=== PATIENT | male | born 1945 | race Caucasian/White ===

== ENCOUNTER 2022-03-31 12:47 | Observation (INO) ==
--- NOTE | 2022-03-31 14:13 | XRay Report ---
SINGLE VIEW CHEST CLINICAL HISTORY: Change in mental status. FINDINGS: An AP, portable, upright chest radiograph is obtained. No prior studies are available for c omparison at the time of dictation. The heart is top normal for projection noting atherosclerotic ca lcification of the thoracic aorta. There is bibasilar scarring/atelectasis. The lungs and pleural spa [place] are otherwise clear. No pneumothorax is seen. The skeletal structures are osteopenic. The bony th orax is grossly intact. IMPRESSION: No active disease in the chest. ACT 112: Negative or not required by law. Electronically signed by: Andrew Thomason M.D. 03/31/2022 2:11 PM
[2022-03-31 14:29] LABS: Basophils # (auto) 0.01 K/uL (0-0.2); Basophils % (auto) 0.2 %; Eosinophils # (auto) 0.17 K/uL (0-0.5); Eosinophils % (auto) 2.8 %; Hemoglobin 16.4 g/dL (14.0-18.0); Immature Granulocytes # (auto) 0.01 K/uL (0.00-0.02); Immature Granulocytes % (auto) 0.2 %; Lymphocytes # (auto) 0.97 K/uL (1.2-3.4); Lymphocytes % (auto) 15.9 %; Mean Corpuscular Hemoglobin 31.7 pg (25-34); Mean Corpuscular Hgb Conc 34.9 g/dL (32-36); Mean Corpuscular Volume 90.9 fL (80-100); Mean Platelet Volume 9.3 fL (7.4-10.4); Monocytes # (auto) 0.48 K/uL (0.11-0.59); Monocytes % (auto) 7.9 %; Neutrophils # (auto) 4.45 K/uL (1.4-6.5); Platelet Count 172 K/uL (130-400); RDW Coefficient of Variation 11.9 % (11.5-14.5); Red Blood Count 5.17 M/uL (4.7-6.1); White Blood Count 6.09 K/uL (4.8-10.8)
[2022-03-31 14:35] LABS: Partial Thromboplastin Time 27.9 Seconds (21.0-31.0); Prothrombin Time 10.8 Seconds (9.0-12.0)
[2022-03-31 14:40] LABS: Appearance Urine Clear (Clear); Bilirubin Urine Negative (Negative); Blood Urine Negative (Negative); Color Urine Yellow; Glucose Urine UA Negative (Negative); Ketones Urine Trace (Negative); Leukocyte Esterase Urine Negative (Negative); Nitrite Urine Negative (Negative); Protein Urine Negative (Negative); Urobilinogen Urine Negative (Negative)
[2022-03-31 14:48] LABS: Albumin Globulin Ratio 1.6 (0.9-2); Albumin Level 4.6 gm/dl (3.4-5.0); Bilirubin,Total 0.9 mg/dl (0.2-1.0); Calcium 9.8 mg/dl (8.5-10.1); Est GFR (African American) 90.4 ml/min; Globulin 2.8 gm/dl (2.5-4.0); Magnesium 2.2 mg/dl (1.7-2.4); Potassium 3.9 mmol/L (3.5-5.1); Total Protein 7.4 gm/dl (6.0-8.3)
--- NOTE | 2022-03-31 15:05 | Emergency Department Note ---
History of Present Illness General Chief complaint: Confusion Stated complaint: CONFUSION Time Seen by Provider: 03/31/22 14:31 Source: patient History of Present Illness Provider complaint: Confusion Onset (ago): hour(s) Location: head Pain Consistency: + constant and + now resolved Quality: + other (Could not remember anything) Relieved By: + none Associated symptoms: + confusion; no chest pain, no cough, no fever/chills, no headaches, no nausea/vomiting, no shortness of breath or no weakness This is a 76-year-old male who presents with an episode of confusion that lasted approximately 45 minutes. The patient and his are providing history. The states that they came home from [place] and they made love. Afterwards he could not remember anything. He did not remember the events of today or yesterday. He had no other symptoms. He had no difficulty with his speech, vision, walking, swallowing or numbness or weakness in his extremities. His checked his strength and he had good strength bilaterally. He denies any headache. After about 45 minutes his symptoms resolved. He has never had an episode like this before. He currently has no complaints. He denies any headache, fever, cough or cold symptoms, chest pain, shortness of breath, abdominal pain, vomiting, diarrhea or urinary symptoms. He does have a history of prostate cancer. He has never had any imaging to his brain. Home Medications Medication Instructions Recorded Confirmed Type ascorbic acid (vitamin C) 500 mg 500 mg PO DAILY cap 10/16/21 03/31/22 History capsule calcium carb-ergocalciferol (vit 1 tab PO DAILY tab 10/16/21 03/31/22 History D2) 600 mg calcium-200 unit tablet cholecalciferol (vitamin D3) 125 125 mcg PO DAILY 10/16/21 03/31/22 History mcg (5,000 unit) capsule multivitamin 1 tab PO DAILY 10/16/21 03/31/22 History tamsulosin 0.4 mg capsule 0.4 mg PO BIDWMEAL #60 cap 12/24/21 03/31/22 Rx metformin 500 mg tablet 500 mg PO BID 01/07/22 03/31/22 History pumpkin seed extract 500 mg 500 mg PO DAILY cap 01/21/22 03/31/22 History capsule (Azo Men) royal jelly 500 mg capsule 500 mg PO TIDWMEAL 03/31/22 03/31/22 History Allergies Allergy/AdvReac Type Severity Reaction Status Date / Time finasteride AdvReac Breast Verified 03/31/22 15:29 tenderness Past Med/Surg History Medical History Osteoarthritis Prostate cancer (09/07/21) Sleep apnea Surgical History H/O left inguinal hernia repair H/O umbilical hernia repair Family History Mother , in her 90s Natural with unknown cause Father , 93yo No problems noted. Brother Family history unknown Brother Family history unknown Brother Suicide Sister Family history unknown Sister Family history unknown Son No problems noted. Daughter No problems noted. Social History Smoking Status: Former smoker Cigarettes Per Day: 2 packs; Smoking End Date: 1987; Second Hand Exposure: No; Do You Dip or Chew Tobacco: No; Tobacco Cessation Education Requested by Patient: No Hx Alcohol Use: No Hx Substance Use: No Preferred Language: Palestinian Communication Ability: Effective Visual Impairment: No Limitations Hearing Ability: Normal Census Clerk Required: Yes and No Beliefs That Will Affect Care: None marital status: Current Living Situation: Spouse current occupational status: employed current occupation: Owns [employer] Other Information That Helps Us Care for You: No Feels Safe at Home: Yes Safety Concerns: Feels Safe At This Time caffeine: Yes (1 cup/day) during the past year weight has: remained stable Assistive Devices: Glasses Review of Systems See HPI for pertinent positives & negatives. and A total of 10 systems reviewed and were otherwise negative Physical Exam Vital Signs Vital Signs - 24 hr 03/31/22 13:01 03/31/22 15:28 03/31/22 15:29 Temperature 36.8 C Temperature Source Temporal Artery Scan Pulse Rate 89 Pulse Rate [Apical] 87 Pulse Rate from SpO2 Sensor Respiratory Rate 18 13 Respiratory Effort / Characteristics Non-Labored Respiratory Depth Normal Respiratory Pattern Regular Blood Pressure 160/88 H Blood Pressure [Right Arm] 172/98 H Blood Pressure Mean 112 Blood Pressure Mean [Right Arm] 122 Blood Pressure Position Sitting Blood Pressure Position [Right Arm] Semi-fowlers Pulse Oximetry 95 95 97 Oxygen Delivery Method Room Air Room Air Room Air Sepsis Recent Fever Within 48 Hours No Sepsis New/Unexplained Change in Mental Status No Sepsis Action Taken by Nursing No Action Required 03/31/22 15:36 03/31/22 15:40 03/31/22 15:50 Temperature Temperature Source Pulse Rate 87 79 90 Pulse Rate [Apical] Pulse Rate from SpO2 Sensor 80 91 H Respiratory Rate 20 18 15 Respiratory Effort / Characteristics Respiratory Depth Respiratory Pattern Blood Pressure Blood Pressure [Right Arm] Blood Pressure Mean Blood Pressure Mean [Right Arm] Blood Pressure Position Blood Pressure Position [Right Arm] Pulse Oximetry 97 97 Oxygen Delivery Method Sepsis Recent Fever Within 48 Hours Sepsis New/Unexplained Change in Mental Status Sepsis Action Taken by Nursing 03/31/22 16:13 03/31/22 16:20 03/31/22 16:30 Temperature Temperature Source Pulse Rate 83 80 78 Pulse Rate [Apical] Pulse Rate from SpO2 Sensor 79 Respiratory Rate 19 17 16 Respiratory Effort / Characteristics Respiratory Depth Respiratory Pattern Blood Pressure Blood Pressure [Right Arm] Blood Pressure Mean Blood Pressure Mean [Right Arm] Blood Pressure Position Blood Pressure Position [Right Arm] Pulse Oximetry 95 Oxygen Delivery Method Sepsis Recent Fever Within 48 Hours Sepsis New/Unexplained Change in Mental Status Sepsis Action Taken by Nursing Constitutional: Vital signs reviewed. Eyes: Pupils are equal round reactive to light. Conjunctiva are noninjected. ENT: Pharynx is clear without erythema or exudate. Mucous membranes are moist. Neck supple without meningeal signs. Respiratory: Clear to auscultation bilaterally. Breath sounds are equal bilaterally. Cardiovascular: Regular rate and rhythm. No rubs or gallops. No carotid bruits. GI: Soft, nondistended and nontender. Bowel sounds are present. Musculoskeletal: No peripheral edema. No lower extremity tenderness. Integumentary: No cyanosis. or jaundice. Neurologic: The patient is awake and alert. Cranial nerves II-XII are intact. Motor is 5 out of 5 all extremities. Sensation is intact to light touch all extremities. Normal speech. No pronator drift. No limb ataxia. Normal gait. Psychiatric: Normal affect. Not anxious appearing. Course Administered Medications Insulin Aspart (Insulin Aspart Per Unit) 0 units SC ACHS CRYSTAL Stop: 04/30/22 20:59 Last Admin: 03/31/22 20:36 Dose: Not Given Documented by: [id number] Cosigned by: [id number] Tamsulosin HCl (Tamsulosin Hcl 0.4 Mg Cap) 0.4 mg PO BIDM [facility] Stop: 04/30/22 18:35 Last Admin: 03/31/22 20:07 Dose: 0.4 mg Documented by: [id number] Discontinued Medications Aspirin (Aspirin 81 Mg Chew) 324 mg PO NOW STA Stop: 03/31/22 16:40 Last Admin: 03/31/22 17:38 Dose: 324 mg Documented by: [id number] Gadobutrol (Gadobutrol 30ml Vial) 8 ml IV ONCE ONE Stop: 03/31/22 18:03 Last Admin: 03/31/22 18:02 Dose: 8 ml Documented by: [id number] Ioversol (Optiray 320 125ml) 120 ml IV ONCE ONE Stop: 03/31/22 15:24 Last Admin: 03/31/22 15:23 Dose: 120 ml Documented by: [id number] Medical Decision Making Differential Diagnosis Transient global amnesia, TIA, CVA, intracranial hemorrhage, intracranial mass, metabolic derangement, metastatic disease Medical Records Attestation: I reviewed the patient's medical records. I did perform a limited focused review of portions of the patient's old chart on the electronic medical record. The patient was seen earlier this year by oncology for prostate cancer. Home Medications Current Medication List: was personally reviewed by me Laboratory Data Attestation: I reviewed the patient's lab results. Result diagrams: 03/31/22 14:15 03/31/22 14:15 Lab Results 03/31/22 03/31/22 03/31/22 Range/Units 14:15 14:15 14:15 WBC 6.09 (4.8-10.8) K/uL RBC 5.17 (4.7-6.1) M/uL Hgb 16.4 (14.0-18.0) g/dL Hct 47.0 (42-52) % MCV 90.9 (80-100) fL MCH 31.7 (25-34) pg MCHC 34.9 (32-36) g/dL RDW Std Deviation 40.0 (36.4-46.3) fL RDW Coeff of Anita 11.9 (11.5-14.5) % Plt Count 172 (130-400) K/uL MPV 9.3 (7.4-10.4) fL Immature Gran % (Auto) 0.2 % Neut % (Auto) 73.0 % Lymph % (Auto) 15.9 % [place] % (Auto) 7.9 % Eos % (Auto) 2.8 % Baso % (Auto) 0.2 % Neut # (Auto) 4.45 (1.4-6.5) K/uL Lymph # (Auto) 0.97 L (1.2-3.4) K/uL [place] # (Auto) 0.48 (0.11-0.59) K/uL Eos # (Auto) 0.17 (0-0.5) K/uL Baso # (Auto) 0.01 (0-0.2) K/uL Immature Gran # (Auto) 0.01 (0.00-0.02) K/uL PT 10.8 (9.0-12.0) Seconds INR 1.0 (0.9-1.1) APTT 27.9 (21.0-31.0) Seconds PTT Ratio 1.0 Sodium 138 (136-145) mmol/L Potassium 3.9 (3.5-5.1) mmol/L Chloride 103 (98-107) mmol/L Carbon Dioxide 27 (21-32) mmol/L Anion Gap 8 (3-11) BUN 19 (6-23) mg/dl Creatinine 0.95 (0.6-1.4) mg/dl Est Cr Clr Drug Dosing 65.0 ml/min Est GFR ( Amer) 90.4 ml/min Est GFR (Non-Af Amer) 78.0 ml/min BUN/Creatinine Ratio 20.0 (10-20) Glucose 105 H (70-99(Fasting)) mg/dl Calcium 9.8 (8.5-10.1) mg/dl Magnesium 2.2 (1.7-2.4) mg/dl Total Bilirubin 0.9 (0.2-1.0) mg/dl AST 16 (13-39) U/L ALT 13 (7-52) U/L Alkaline Phosphatase 55 (34-104) U/L Troponin I High Sens (0-20) pg/ml Total Protein 7.4 (6.0-8.3) gm/dl Albumin 4.6 (3.4-5.0) gm/dl Globulin 2.8 (2.5-4.0) gm/dl Albumin/Globulin Ratio 1.6 (0.9-2) TSH (0.300-4.500) uIu/ml Free T4 (0.61-1.60) ng/dl Urine Color Urine Appearance (Clear) Urine pH (4.5-7.5) Ur Specific Alloway (1.000-1.030) Urine Protein (Negative) Urine Glucose (UA) (Negative) Urine Ketones (Negative) Urine Blood (Negative) Urine Nitrite (Negative) Urine Bilirubin (Negative) Urine Urobilinogen (Negative) Ur Leukocyte Esterase (Negative) SARS-CoV-2, RNA, NAAT (NEGATIVE) Blood Type Antibody Screen 03/31/22 03/31/22 03/31/22 Range/Units 14:15 14:15 14:15 WBC (4.8-10.8) K/uL RBC (4.7-6.1) M/uL Hgb (14.0-18.0) g/dL Hct (42-52) % MCV (80-100) fL MCH (25-34) pg MCHC (32-36) g/dL RDW Std Deviation (36.4-46.3) fL RDW Coeff of Anita (11.5-14.5) % Plt Count (130-400) K/uL MPV (7.4-10.4) fL Immature Gran % (Auto) % Neut % (Auto) % Lymph % (Auto) % [place] % (Auto) % Eos % (Auto) % Baso % (Auto) % Neut # (Auto) (1.4-6.5) K/uL Lymph # (Auto) (1.2-3.4) K/uL [place] # (Auto) (0.11-0.59) K/uL Eos # (Auto) (0-0.5) K/uL Baso # (Auto) (0-0.2) K/uL Immature Gran # (Auto) (0.00-0.02) K/uL PT (9.0-12.0) Seconds INR (0.9-1.1) APTT (21.0-31.0) Seconds PTT Ratio Sodium (136-145) mmol/L Potassium (3.5-5.1) mmol/L Chloride (98-107) mmol/L Carbon Dioxide (21-32) mmol/L Anion Gap (3-11) BUN (6-23) mg/dl Creatinine (0.6-1.4) mg/dl Est Cr Clr Drug Dosing ml/min Est GFR ( Amer) ml/min Est GFR (Non-Af Amer) ml/min BUN/Creatinine Ratio (10-20) Glucose (70-99(Fasting)) mg/dl Calcium (8.5-10.1) mg/dl Magnesium (1.7-2.4) mg/dl Total Bilirubin (0.2-1.0) mg/dl AST (13-39) U/L ALT (7-52) U/L Alkaline Phosphatase (34-104) U/L Troponin I High Sens (0-20) pg/ml Total Protein (6.0-8.3) gm/dl Albumin (3.4-5.0) gm/dl Globulin (2.5-4.0) gm/dl Albumin/Globulin Ratio (0.9-2) TSH 7.548 H (0.300-4.500) uIu/ml Free T4 0.67 (0.61-1.60) ng/dl Urine Color Yellow Urine Appearance Clear (Clear) Urine pH 5.0 (4.5-7.5) Ur Specific Alloway 1.010 (1.000-1.030) Urine Protein Negative (Negative) Urine Glucose (UA) Negative (Negative) Urine Ketones Trace H (Negative) Urine Blood Negative (Negative) Urine Nitrite Negative (Negative) Urine Bilirubin Negative (Negative) Urine Urobilinogen Negative (Negative) Ur Leukocyte Esterase Negative (Negative) SARS-CoV-2, RNA, NAAT (NEGATIVE) Blood Type Antibody Screen 03/31/22 03/31/22 03/31/22 Range/Units 15:02 15:02 16:10 WBC (4.8-10.8) K/uL RBC (4.7-6.1) M/uL Hgb (14.0-18.0) g/dL Hct (42-52) % MCV (80-100) fL MCH (25-34) pg MCHC (32-36) g/dL RDW Std Deviation (36.4-46.3) fL RDW Coeff of Anita (11.5-14.5) % Plt Count (130-400) K/uL MPV (7.4-10.4) fL Immature Gran % (Auto) % Neut % (Auto) % Lymph % (Auto) % [place] % (Auto) % Eos % (Auto) % Baso % (Auto) % Neut # (Auto) (1.4-6.5) K/uL Lymph # (Auto) (1.2-3.4) K/uL [place] # (Auto) (0.11-0.59) K/uL Eos # (Auto) (0-0.5) K/uL Baso # (Auto) (0-0.2) K/uL Immature Gran # (Auto) (0.00-0.02) K/uL PT (9.0-12.0) Seconds INR (0.9-1.1) APTT (21.0-31.0) Seconds PTT Ratio Sodium (136-145) mmol/L Potassium (3.5-5.1) mmol/L Chloride (98-107) mmol/L Carbon Dioxide (21-32) mmol/L Anion Gap (3-11) BUN (6-23) mg/dl Creatinine (0.6-1.4) mg/dl Est Cr Clr Drug Dosing ml/min Est GFR ( Amer) ml/min Est GFR (Non-Af Amer) ml/min BUN/Creatinine Ratio (10-20) Glucose (70-99(Fasting)) mg/dl Calcium (8.5-10.1) mg/dl Magnesium (1.7-2.4) mg/dl Total Bilirubin (0.2-1.0) mg/dl AST (13-39) U/L ALT (7-52) U/L Alkaline Phosphatase (34-104) U/L Troponin I High Sens 4.3 (0-20) pg/ml Total Protein (6.0-8.3) gm/dl Albumin (3.4-5.0) gm/dl Globulin (2.5-4.0) gm/dl Albumin/Globulin Ratio (0.9-2) TSH (0.300-4.500) uIu/ml Free T4 (0.61-1.60) ng/dl Urine Color Urine Appearance (Clear) Urine pH (4.5-7.5) Ur Specific Alloway (1.000-1.030) Urine Protein (Negative) Urine Glucose (UA) (Negative) Urine Ketones (Negative) Urine Blood (Negative) Urine Nitrite (Negative) Urine Bilirubin (Negative) Urine Urobilinogen (Negative) Ur Leukocyte Esterase (Negative) SARS-CoV-2, RNA, NAAT NEGATIVE (NEGATIVE) Blood Type B Positive Antibody Screen NEGATIVE Imaging Data Radiologist's Impression: Chest X-Ray 03/31/22 13:05 SINGLE VIEW CHEST CLINICAL HISTORY: Change in mental status. FINDINGS: An AP, portable, upright chest radiograph is obtained. No prior studies are available for comparison at the time of dictation. The heart is top normal for projection noting atherosclerotic calcification of the thoracic aorta. There is bibasilar scarring/atelectasis. The lungs and pleural spaces are otherwise clear. No pneumothorax is seen. The skeletal structures are osteopenic. The bony thorax is grossly intact. IMPRESSION: No active disease in the chest. ACT 112: Negative or not required by law. Electronically signed by: Andrew Thomason M.D. 03/31/2022 2:[address] 03/31/22 14:[address] OF THE BRAIN; CT ANGIOGRAM OF THE BRAIN; CT ANGIOGRAM OF THE NECK CLINICAL HISTORY: Strokelike symptoms. Global amnesia. COMPARISON STUDY: No priors. TECHNIQUE: Unenhanced axial CT scan of the brain is performed. Subsequently, following the IV administration of 120 of Optiray 320, CT angiogram of the head and neck was performed from the aortic arch to the vertex. Images are reviewed in the axial, sagittal, and coronal planes. 3-D MIPS images are created and assessed. IV contrast was administered without complication. All measurements were calculated based on NASCET criteria. A dose lowering technique was utilized adhering to the principles of ALARA. CT DOSE: 1107.58 mGy.cm FINDINGS: Brain parenchyma: There is age-related involutional change noting minimal subcortical and periventricular microangiopathic disease. There is no hemorrhage, mass effect, or evidence of acute territorial ischemia by CT criteria. There is no evidence of enhancing mass lesion on the angiogram phase images. The ventricles, sulci, and cisterns are prominent secondary to involutional change. Bowers-white matter differentiation is preserved. No extra- axial fluid collection is seen. Thoracic aorta: There is atherosclerotic calcification of the thoracic aorta. Visualized portions of the thoracic aorta are normal in caliber. The aortic arch demonstrates standard 3-vessel anatomy. Right carotid arterial system: The right common carotid artery is widely patent, as are the right internal and external carotid arteries. Calcified plaque is seen in the carotid bulb. Left carotid arterial system: The left common carotid artery is widely patent, as are the left internal and external carotid arteries. Calcified plaque is noted in the carotid bulb. Vertebral arteries: The vertebral arteries are widely patent bilaterally. The left vertebral artery is dominant. Subclavian arteries: Widely patent bilaterally. Intracranial vasculature: The internal carotid arteries are patent at the skull base, as are the anterior and middle cerebral arteries bilaterally. The vertebrobasilar system and posterior cerebral arteries are widely patent. The left vertebral artery is dominant. The intracranial right vertebral artery is diminutive. There is no aneurysm, high-grade stenosis, or focal vessel cut off seen throughout the intracranial circulation. Jugular veins: Patent bilaterally. Dural sinuses: Patent. Lung apices: Partially visualized upper lobe lung parenchyma appears clear. Soft tissues: The visualized pharyngeal soft tissues are normal in appearance noting angiographic phase technique. The oropharyngeal airway appears widely patent. The salivary and thyroid glands are normal in appearance. No cervical lymphadenopathy is seen. Skeletal structures: The skeletal structures are osteopenic. The calvarium appears intact. The cervical spine is maintained noting mild multilevel spondylosis. No lytic or blastic lesion is seen. Orbits: The bony orbits are intact. Orbital contents are normal as visualized. Sinuses and mastoids: There is mild mucosal thickening within the left maxillary antrum. Trace mucosal thickening is noted in the ethmoid sinuses. The remaining Paranasal sinuses are clear. The mastoid air cells are well pneumatized. IMPRESSION: 1. There is no hemorrhage, mass effect, or evidence of acute territorial ischemia by CT criteria. 2. Unremarkable CT angiogram of the brain. 3. Unremarkable CT angiogram of the neck. ACT 112: Negative or not required by law. Electronically signed by: Andrew Thomason M.D. 03/31/2022 3:34 PM Head CTA 03/31/22 14:[address] OF THE BRAIN; CT ANGIOGRAM OF THE BRAIN; CT ANGIOGRAM OF THE NECK CLINICAL HISTORY: Strokelike symptoms. Global amnesia. COMPARISON STUDY: No priors. TECHNIQUE: Unenhanced axial CT scan of the brain is performed. Subsequently, following the IV administration of 120 of Optiray 320, CT angiogram of the head and neck was performed from the aortic arch to the vertex. Images are reviewed in the axial, sagittal, and coronal planes. 3-D MIPS images are created and assessed. IV contrast was administered without complication. All measurements were calculated based on NASCET criteria. A dose lowering technique was utilized adhering to the principles of ALARA. CT DOSE: 1107.58 mGy.cm FINDINGS: Brain parenchyma: There is age-related involutional change noting minimal subcortical and periventricular microangiopathic disease. There is no hemorrhage, mass effect, or evidence of acute territorial ischemia by CT criteria. There is no evidence of enhancing mass lesion on the angiogram phase images. The ventricles, sulci, and cisterns are prominent secondary to involutional change. Bowers-white matter differentiation is preserved. No extra- axial fluid collection is seen. Thoracic aorta: There is atherosclerotic calcification of the thoracic aorta. Visualized portions of the thoracic aorta are normal in caliber. The aortic arch demonstrates standard 3-vessel anatomy. Right carotid arterial system: The right common carotid artery is widely patent, as are the right internal and external carotid arteries. Calcified plaque is seen in the carotid bulb. Left carotid arterial system: The left common carotid artery is widely patent, as are the left internal and external carotid arteries. Calcified plaque is noted in the carotid bulb. Vertebral arteries: The vertebral arteries are widely patent bilaterally. The left vertebral artery is dominant. Subclavian arteries: Widely patent bilaterally. Intracranial vasculature: The internal carotid arteries are patent at the skull base, as are the anterior and middle cerebral arteries bilaterally. The vertebrobasilar system and posterior cerebral arteries are widely patent. The left vertebral artery is dominant. The intracranial right vertebral artery is diminutive. There is no aneurysm, high-grade stenosis, or focal vessel cut off seen throughout the intracranial circulation. Jugular veins: Patent bilaterally. Dural sinuses: Patent. Lung apices: Partially visualized upper lobe lung parenchyma appears clear. Soft tissues: The visualized pharyngeal soft tissues are normal in appearance noting angiographic phase technique. The oropharyngeal airway appears widely patent. The salivary and thyroid glands are normal in appearance. No cervical lymphadenopathy is seen. Skeletal structures: The skeletal structures are osteopenic. The calvarium appears intact. The cervical spine is maintained noting mild multilevel spondylosis. No lytic or blastic lesion is seen. Orbits: The bony orbits are intact. Orbital contents are normal as visualized. Sinuses and mastoids: There is mild mucosal thickening within the left maxillary antrum. Trace mucosal thickening is noted in the ethmoid sinuses. The remaining Paranasal sinuses are clear. The mastoid air cells are well pneumatized. IMPRESSION: 1. There is no hemorrhage, mass effect, or evidence of acute territorial ischemia by CT criteria. 2. Unremarkable CT angiogram of the brain. 3. Unremarkable CT angiogram of the neck. ACT 112: Negative or not required by law. Electronically signed by: Andrew Thomason M.D. 03/31/2022 3:34 PM Neck CTA 03/31/22 14:[address] OF THE BRAIN; CT ANGIOGRAM OF THE BRAIN; CT ANGIOGRAM OF THE NECK CLINICAL HISTORY: Strokelike symptoms. Global amnesia. COMPARISON STUDY: No priors. TECHNIQUE: Unenhanced axial CT scan of the brain is performed. Subsequently, following the IV administration of 120 of Optiray 320, CT angiogram of the head and neck was performed from the aortic arch to the vertex. Images are reviewed in the axial, sagittal, and coronal planes. 3-D MIPS images are created and assessed. IV contrast was administered without complication. All measurements were calculated based on NASCET criteria. A dose lowering technique was utilized adhering to the principles of ALARA. CT DOSE: 1107.58 mGy.cm FINDINGS: Brain parenchyma: There is age-related involutional change noting minimal subcortical and periventricular microangiopathic disease. There is no hemorrhage, mass effect, or evidence of acute territorial ischemia by CT criteria. There is no evidence of enhancing mass lesion on the angiogram phase images. The ventricles, sulci, and cisterns are prominent secondary to involutional change. Bowers-white matter differentiation is preserved. No extra- axial fluid collection is seen. Thoracic aorta: There is atherosclerotic calcification of the thoracic aorta. Visualized portions of the thoracic aorta are normal in caliber. The aortic arch demonstrates standard 3-vessel anatomy. Right carotid arterial system: The right common carotid artery is widely patent, as are the right internal and external carotid arteries. Calcified plaque is seen in the carotid bulb. Left carotid arterial system: The left common carotid artery is widely patent, as are the left internal and external carotid arteries. Calcified plaque is noted in the carotid bulb. Vertebral arteries: The vertebral arteries are widely patent bilaterally. The left vertebral artery is dominant. Subclavian arteries: Widely patent bilaterally. Intracranial vasculature: The internal carotid arteries are patent at the skull base, as are the anterior and middle cerebral arteries bilaterally. The vertebrobasilar system and posterior cerebral arteries are widely patent. The left vertebral artery is dominant. The intracranial right vertebral artery is diminutive. There is no aneurysm, high-grade stenosis, or focal vessel cut off seen throughout the intracranial circulation. Jugular veins: Patent bilaterally. Dural sinuses: Patent. Lung apices: Partially visualized upper lobe lung parenchyma appears clear. Soft tissues: The visualized pharyngeal soft tissues are normal in appearance noting angiographic phase technique. The oropharyngeal airway appears widely patent. The salivary and thyroid glands are normal in appearance. No cervical lymphadenopathy is seen. Skeletal structures: The skeletal structures are osteopenic. The calvarium appears intact. The cervical spine is maintained noting mild multilevel spondylosis. No lytic or blastic lesion is seen. Orbits: The bony orbits are intact. Orbital contents are normal as visualized. Sinuses and mastoids: There is mild mucosal thickening within the left maxillary antrum. Trace mucosal thickening is noted in the ethmoid sinuses. The remaining Paranasal sinuses are clear. The mastoid air cells are well pneumatized. IMPRESSION: 1. There is no hemorrhage, mass effect, or evidence of acute territorial i schemia by CT criteria. 2. Unremarkable CT angiogram of the brain. 3. Unremarkable CT angiogram of the neck. ACT 112: Negative or not required by law. Electronically signed by: Andrew Thomason M.D. 03/31/2022 3:34 PM ECG Data Attestation: I personally reviewed and interpreted this ECG as follows: Indication: + altered mental status Rate (beats per minute): 88 Rhythm: + normal sinus ECG [place]: + Normal ECG ST segments: no ST elevation ECG Findings: no PVCs MDM Narrative I did evaluate the patient as noted above. I did obtain history from the patient and as well as his . The patient is presenting with symptoms consistent with transient global amnesia. They were having sexual intercourse and afterwards he had significant memory loss. His symptoms resolved after 40 minutes. IV accesswas established. I did place an order for continuous cardiac monitoring. The monitor showed normal sinus rhythm at a rate of 80 bpm. I did order and personally review the patient's 12-lead EKG as described above. He has no acute ischemic changes. I did order and personally reviewed the images of the patient's chest x-ray as described above. Chest x-ray is unremarkable. I did order a urine analysis. He does not have a UTI. I did order and review the patient's blood work as noted in the electronic medical record. CBC is unremarkable without leukocytosis or anemia. CMP is unremarkable other than a glucose of 105. High-sensitivity troponin is negative. TSH is elevated but his free T4 is within normal limits. I did order a CT of the head and CT angiogram of the head and neck I did review the images myself as well as the radiology report as described above. There is no evidence of acute abnormality. I did discuss the test results with the patient. He has no symptoms at this time. I did recommend hospitalization for MRI and further stroke work-up. His stated that he would be unlikely to follow-up as an outpatient if we discharged him. He initially agreed and I did order a COVID test. This was negative. I did discuss the case with the hospitalist and case picker. The hospital service did evaluate him in the decided that he would go home. I did have a talk with him again and offered to try to get an MRI tonight before he leaves. He was agreeable and I did order the MRI. I was later told by the nurse that he change his mind and decided to stay in the hospital. He was taken upstairs after his MRI was done. The hospitalist was informed. Impression & Plan Transient global amnesia Discharge Plan Visit Data Chief Complaint: Confusion Stated Complaint: CONFUSION ED Provider: Kedar Daniel Discharge Problem: Transient global amnesia Patient Disposition: Admitted As Inpatient Discharge Instructions Interventions: ED Discharge Assessment Last Done: 03/31/22 18:25
[2022-03-31] MEDS ORDERED: OPTIRAY 320 125ml IV ONE (15:23)
--- NOTE | 2022-03-31 15:36 | CT Scan Report ---
UNENHANCED CT OF THE BRAIN; CT ANGIOGRAM OF THE BRAIN; CT ANGIOGRAM OF THE NECK CLINICAL HISTORY: Strokelike symptoms. Global amnesia. COMPARISON STUDY: No priors. TECHNIQUE: Unenhanced axial CT scan of the brain is performed. Subsequently, following the IV adminis tration of 120 of Optiray 320, CT angiogram of the head and neck was performed from the aortic arch t o the vertex. Images are reviewed in the axial, sagittal, and coronal planes. 3-D MIPS images are cre ated and assessed. IV contrast was administered without complication. All measurements were calculate d based on NASCET criteria. A dose lowering technique was utilized adhering to the principles of ALA RA. CT DOSE: 1107.58 mGy.cm FINDINGS: Brain parenchyma: There is age-related involutional change noting minimal subcortical and periventric ular microangiopathic disease. There is no hemorrhage, mass effect, or evidence of acute territorial ischemia by CT criteria. There is no evidence of enhancing mass lesion on the angiogram phase images. The ventricles, sulci, and cisterns are prominent secondary to involutional change. Bowers-white matte r differentiation is preserved. No extra-axial fluid collection is seen. Thoracic aorta: There is atherosclerotic calcification of the thoracic aorta. Visualized portions of the thoracic aorta are normal in caliber. The aortic arch demonstrates standard 3-vessel anatomy. Right carotid arterial system: The right common carotid artery is widely patent, as are the right int ernal and external carotid arteries. Calcified plaque is seen in the carotid bulb. Left carotid arterial system: The left common carotid artery is widely patent, as are the left internet marketing executive al and external carotid arteries. Calcified plaque is noted in the carotid bulb. Vertebral arteries: The vertebral arteries are widely patent bilaterally. The left vertebral artery i s dominant. Subclavian arteries: Widely patent bilaterally. Intracranial vasculature: The internal carotid arteries are patent at the skull base, as are the ante rior and middle cerebral arteries bilaterally. The vertebrobasilar system and posterior cerebral vivian tessie are widely patent. The left vertebral artery is dominant. The intracranial right vertebral arter y is diminutive. There is no aneurysm, high-grade stenosis, or focal vessel cut off seen throughout t he intracranial circulation. Jugular veins: Patent bilaterally. Dural sinuses: Patent. Lung apices: Partially visualized upper lobe lung parenchyma appears clear. Soft tissues: The visualized pharyngeal soft tissues are normal in appearance noting angiographic pha se technique. The oropharyngeal airway appears widely patent. The salivary and thyroid glands are nor mal in appearance. No cervical lymphadenopathy is seen. Skeletal structures: The skeletal structures are osteopenic. The calvarium appears intact. The cervic al spine is maintained noting mild multilevel spondylosis. No lytic or blastic lesion is seen. Orbits: The bony orbits are intact. Orbital contents are normal as visualized. Sinuses and mastoids: There is mild mucosal thickening within the left maxillary antrum. Trace mucosa l thickening is noted in the ethmoid sinuses. The remaining Paranasal sinuses are clear. The mastoid air cells are well pneumatized. IMPRESSION: 1. There is no hemorrhage, mass effect, or evidence of acute territorial ischemia by CT criteria. 2. Unremarkable CT angiogram of the brain. 3. Unremarkable CT angiogram of the neck. ACT 112: Negative or not required by law. Electronically signed by: Andrew Thomason M.D. 03/31/2022 3:34 PM
--- NOTE | 2022-03-31 16:29 | History & Physical Report ---
Date of Service March 31, 2022 Assessment & Plan (1) Prostate cancer: (2) DM2 (diabetes mellitus, type 2): (3) Transient global amnesia: (4) Elevated TSH: (5) Elevated blood pressure reading without diagnosis of hypertension: History of Present Illness Primary Care Provider: Scotty Mora Mr. Cuello is a 76-year-old male with a past medical history of prostate cancer s/p radiation treatment, BPH, and diabetes who presents today with In ED, hypertensive SBP 160s 170s, otherwise vital signs are within normal limits and stable. Labs significant for TSH of 7.5, free T4 pending. Glucose 105. CBC, CMP, UA largely unremarkable. Head CT and unremarkable for hemorrhage, mass-effect, or evidence of acute territorial ischemia. CT a of head and neck unremarkable. CXR did not show acute cardiopulmonary disease. Allergies Allergy/AdvReac Type Severity Reaction Status Date / Time finasteride AdvReac Breast Verified 03/31/22 15:29 tenderness Home Medications Medication Instructions Recorded Confirmed Type ascorbic acid (vitamin C) 500 mg 500 mg PO DAILY cap 10/16/21 03/31/22 History capsule calcium carb-ergocalciferol (vit 1 tab PO DAILY tab 10/16/21 03/31/22 History D2) 600 mg calcium-200 unit tablet cholecalciferol (vitamin D3) 125 125 mcg PO DAILY 10/16/21 03/31/22 History mcg (5,000 unit) capsule multivitamin 1 tab PO DAILY 10/16/21 03/31/22 History tamsulosin 0.4 mg capsule 0.4 mg PO BIDWMEAL #60 cap 12/24/21 03/31/22 Rx metformin 500 mg tablet 500 mg PO BID 01/07/22 03/31/22 History pumpkin seed extract 500 mg 500 mg PO DAILY cap 01/21/22 03/31/22 History capsule (Azo Men) royal jelly 500 mg capsule 500 mg PO TIDWMEAL 03/31/22 03/31/22 History Past Med/Surg History Medical History Osteoarthritis Prostate cancer (09/07/21) Sleep apnea Surgical History H/O left inguinal hernia repair H/O umbilical hernia repair Family History Mother , in her 90s Natural with unknown cause Father , 93yo No problems noted. Brother Family history unknown Brother Family history unknown Brother Suicide Sister Family history unknown Sister Family history unknown Son No problems noted. Daughter No problems noted. Social History Smoking Status: Former smoker Cigarettes Per Day: 2 PPD x 20yrs or more; Hx Alcohol Use: No Hx Substance Use: No Preferred Language: Thai Communication Ability: Effective Visual Impairment: No Limitations Hearing Ability: Normal Joint Creaser Required: No Beliefs That Will Affect Care: None marital status: Current Living Situation: Spouse current occupational status: employed current occupation: [employer]s [employer] Feels Safe at Home: Yes caffeine: Yes (1 cup/day) during the past year weight has: remained stable Results & Data Results & Data ([facility]) Vital Signs (Past 12 Hours) Vital Signs Temp Pulse Pulse Resp BP BP Pulse Ox 03/31/22 15:29 87 13 172/98 H 97 03/31/22 15:28 95 03/31/22 13:01 36.8 C 89 18 160/88 H 95 PG Care Time/CCT Total # of Minutes Spent Total Time Spent with Patient: Total time spent is greater than 50% in coordination of care (as documented) at patient's floor/unit and/or counseling patient: Coding Diagnoses Prostate cancer C61 DM2 (diabetes mellitus, type 2) E11.9 Transient global amnesia G45.4 Elevated TSH R79.89 Elevated blood pressure reading without diagnosis of hypertension R03.0
[2022-03-31] MEDS ORDERED: ASPIRIN 81 MG CHEW PO STA (16:39)
[2022-03-31] MEDS ORDERED: GADOBUTROL 30ML VIAL IV ONE (18:02)
--- NOTE | 2022-03-31 18:31 | Magnetic Resonance Report ---
MRI OF THE BRAIN COMBO CLINICAL HISTORY: Global amnesia. COMPARISON STUDY: CT of the brain dated 03/31/2022. TECHNIQUE: MRI of the brain was performed utilizing various T1 and T2-weighted sequences in the axial , sagittal, and coronal planes. Contrast-enhanced sequences were acquired following the administratio n of 8 cc of Gadavist. FINDINGS: Brain parenchyma: There is age-related involutional change noting minimal microangiopathic disease. T here is no hemorrhage or mass effect. There is no restricted diffusion to suggest acute ischemia. No enhancing mass lesion is identified on the postcontrast images. Bowers-white matter differentiation is preserved. No extra-axial fluid collection is seen. The cerebellar tonsils are normal in configuratio n. Ventricles, sulci, and cisterns: Prominent secondary to involutional change. Pituitary and sella: Unremarkable. Intracranial vasculature: Normal flow voids are maintained at the skull base. Orbits: The bony orbits are grossly intact. Orbital contents are normal in appearance. Sinuses and mastoids: There is trace mucosal thickening in the left frontal sinus, the left maxillary sinus, and the left ethmoid sinuses. Mastoid air cells are clear. Calvarium: Unremarkable. Cervical cord: Partially visualized cervical spinal cord is normal in morphology and signal intensity . IMPRESSION: No acute intracranial abnormality. ACT 112: Negative or not required by law. Electronically signed by: Andrew Thomason M.D. 03/31/2022 6:29 PM
[2022-03-31] MEDS ORDERED: CARBOHYDRATES FOR HYPOGLYCEMIA PO PRN (18:36)
[2022-03-31] MEDS ORDERED: POLYETHYLENE (MIRALAX) 17 GM PACK PO PRN (18:36)
[2022-03-31] MEDS ORDERED: ACETAMINOPHEN 325 MG TAB PO PRN (18:36)
[2022-03-31] MEDS ORDERED: GLUCOSE 40% GEL 15 GM TUBE PO PRN (18:36)
[2022-03-31] MEDS ORDERED: DEXTROSE 50% 50 ML SYRINGE IV PRN (18:36)
[2022-03-31] MEDS ORDERED: GLUCOSE 10 TABS/TUBE PO PRN (18:36)
[2022-03-31] MEDS ORDERED: GLUCAGON FOR INJ 1 MG VIAL SQ PRN (18:36)
[2022-03-31] MEDS ORDERED: ONDANSETRON INJ 2 MG/ML 2 ML VIAL IV PRN (18:36)
[2022-03-31] MEDS: TAMSULOSIN HCL 0.4 MG CAP PO SCH (20:07)
[2022-03-31] MEDS: INSULIN ASPART PER UNIT SC SCH (20:36)
--- NOTE | 2022-03-31 20:41 | History & Physical Report ---
Date of Service March 31, 2022 Assessment & Plan (1) Transient global amnesia: Plan: - Transient global amnesia versus TIA. So far, work-up to include CT head, CTA head and neck, MRI brain all negative for CVA. - Received ASA 324 mg in ED, will start patient on ASA 81 daily, change per neuro recommendations. - We will obtain lipid panel, A1c, echo. - Neurology consult in AM. (2) Prostate cancer: Plan: - s/p radiation treatment, will find out this month if he is in remission. - MRI brain without any evidence of metastatic disease. - Continue Flomax. (3) DM2 (diabetes mellitus, type 2): Plan: - On metformin at home, will hold in the hospital. - Patient states that sugars are between 100 - 130. - Accu-Cheks achs with sliding scale insulin. - Diabetic diet. - A1c in AM. (4) Elevated TSH: Plan: - TSH 7.548, free T4 0.267. - Recommend follow-up with PCP. (5) Elevated blood pressure reading without diagnosis of hypertension: Plan: - Patient reports he has "white coat syndrome", does check blood pressure at home and systolic BP typically 120s. - Continue to monitor, can follow-up as outpatient. Plan: - Obs med/surg. - SCDs for DVT ppx. - Full Code. Admission and Anticipated Discharge Date Admission Date: March 31, 2022 History of Present Illness Chief Complaint: transient amnesia x 45 minutes Primary Care Provider: Scotty Mora Mr. Cuello is a 76-year-old male with a past medical history significant for prostate cancer status postradiation treatment completed in January, as well as diabetes diagnosed this past fall on metformin who presents today with 45 minutes of transient confusion at home. He and his had gone to [place] this morning and came home and engaged in sexual activity. Immediately following this, he had complete memory loss of the previous day and this morning. He could not recall things he had done at work yesterday, or that they had been at [place] already. He was alert to himself, place, recognized , but had to show him a receipt from a transaction that occurred yesterday for him to believe today's date. He apparently had done some important things regarding his work yesterday and was insisting he had to complete these tasks today, though they had been done yesterday. During this event, he had no focal weakness, no numbness or tingling, speech deficits, difficulty swallowing, nausea, vomiting, dizziness, or balanc issues. 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 They came to the ED for further evaluation, however on the way his symptoms fully resolved. He now has some memory of his questioning him during the event, but does not actually recall any of this confusion. He is completely back to his baseline. This has never happened to him before. This month he will find out if he is in remission from his prostate cancer, there is no known metastatic disease to brain, has not had any headaches, visual changes, or other neurological deficits. Had been in his previous state of health until this morning, no fever/chills, neck stiffness, weakness, myalgias, anorexia, night sweats, dizziness, chest pain, palpitations, shortness of breath, abdominal pain, or with urinary symptoms. In ED, he is hypertensive, all other vital signs within normal limits and stable. Labs largely unremarkable, glucose is 105. Troponin 4.3. No electrolyte abnormalities. TSH 7.54, free T4 0.67. UA unremarkable. COVID- negative. Head CT, head and neck CTA all unremarkable for acute process, chest x-ray showed no acute cardiopulmonary disease. Hospitalist service was consulted for further evaluation and admission. Patient was initially hesitant to stay, however ultimately decided to stay overnight for neurology consult. Allergies Allergy/AdvReac Type Severity Reaction Status Date / Time finasteride AdvReac Breast Verified 03/31/22 15:29 tenderness Home Medications Medication Instructions Recorded Confirmed Type ascorbic acid (vitamin C) 500 mg 500 mg PO DAILY cap 10/16/21 03/31/22 History capsule calcium carb-ergocalciferol (vit 1 tab PO DAILY tab 10/16/21 03/31/22 History D2) 600 mg calcium-200 unit tablet cholecalciferol (vitamin D3) 125 125 mcg PO DAILY 10/16/21 03/31/22 History mcg (5,000 unit) capsule multivitamin 1 tab PO DAILY 10/16/21 03/31/22 History tamsulosin 0.4 mg capsule 0.4 mg PO BIDWMEAL #60 cap 12/24/21 03/31/22 Rx metformin 500 mg tablet 500 mg PO BID 01/07/22 03/31/22 History pumpkin seed extract 500 mg 500 mg PO DAILY cap 01/21/22 03/31/22 History capsule (Azo Men) royal jelly 500 mg capsule 500 mg PO TIDWMEAL 03/31/22 03/31/22 History Past Med/Surg History Medical History Osteoarthritis Prostate cancer (09/07/21) Sleep apnea Surgical History H/O left inguinal hernia repair H/O umbilical hernia repair Family History Mother , in her 90s Natural with unknown cause Father , 93yo No problems noted. Brother Family history unknown Brother Family history unknown Brother Suicide Sister Family history unknown Sister Family history unknown Son No problems noted. Daughter No problems noted. Social History Smoking Status: Former smoker Cigarettes Per Day: 2 packs; Smoking End Date: 1987; Second Hand Exposure: No; Do You Dip or Chew Tobacco: No; Tobacco Cessation Education Requested by Patient: No Hx Alcohol Use: No Hx Substance Use: No Preferred Language: Somali Communication Ability: Effective Visual Impairment: No Limitations Hearing Ability: Normal Technical Implementation Lead Required: Yes and No Beliefs That Will Affect Care: None marital status: Current Living Situation: Spouse current occupational status: employed current occupation: Owns [employer] Other Information That Helps Us Care for You: No Feels Safe at Home: Yes Safety Concerns: Feels Safe At This Time caffeine: Yes (1 cup/day) during the past year weight has: remained stable Assistive Devices: Glasses Review of Systems Review of Systems: Constitutional: No fever/chills, weakness, fatigue, myalgias, anorexia, night sweats Eyes: No diplopia, no worsening or blurred vision ENT: normal hearing, no trouble swallowing Respiratory: No cough, sputum, dyspnea at rest or on exertion Cardiovascular: No chest pain, tightness or palpitations Abdomen: No pain, nausea, vomiting, diarrhea or constipation : Denies dysuria, hematuria, increased urgency/frequency, urinary retention Musculoskeletal: No joint pain, calf pain, swelling Neurologic: No weakness, numbness/tingling, or balance problems Psychiatric: Transient confusion/global amnesia x 45 minutes; no anxiety or depression Skin: No rash or itch Physical Exam Physical Exam: Constitutional: No fever/chills, weakness, fatigue, myalgias, anorexia, night sweats Eyes: No diplopia, no worsening or blurred vision ENT: normal hearing, no trouble swallowing Respiratory: No cough, sputum, dyspnea at rest or on exertion Cardiovascular: No chest pain, tightness or palpitations Abdomen: No pain, nausea, vomiting, diarrhea or constipation : Denies dysuria, hematuria, increased urgency/frequency, urinary retention Musculoskeletal: No joint pain, calf pain, swelling Neurologic: No weakness, numbness/tingling, or balance problems Psychiatric: No anxiety or depression Skin: No rash or itc Results & Data Results & Data ([facility]) Vital Signs (Past 12 Hours) Vital Signs Temp Pulse Pulse Resp BP BP Pulse Ox 03/31/22 18:42 37 C 112 H 18 172/98 H 95 03/31/22 18:36 03/31/22 17:20 81 17 95 03/31/22 17:10 82 20 96 03/31/22 17:00 78 16 152/85 H 94 03/31/22 16:50 85 22 95 03/31/22 16:40 79 20 94 03/31/22 16:30 78 16 03/31/22 16:20 80 17 95 03/31/22 16:13 83 19 03/31/22 15:50 90 15 97 03/31/22 15:40 79 18 97 03/31/22 15:36 87 20 03/31/22 15:29 87 13 172/98 H 97 03/31/22 15:28 95 03/31/22 13:01 36.8 C 89 18 160/88 H 95 Pulse Ox 03/31/22 18:42 03/31/22 18:36 95 03/31/22 17:20 03/31/22 17:10 03/31/22 17:00 03/31/22 16:50 03/31/22 16:40 03/31/22 16:30 03/31/22 16:20 03/31/22 16:13 03/31/22 15:50 03/31/22 15:40 03/31/22 15:36 03/31/22 15:29 03/31/22 15:28 03/31/22 13:01 Laboratory Results Abnormal lab results 03/31/22 03/31/22 03/31/22 Range/Units 14:15 14:15 14:15 Lymph # (Auto) 0.97 L (1.2-3.4) K/uL Glucose 105 H (70-99(Fasting)) mg/dl POC Glucose (70-99) mg/dl TSH 7.548 H (0.300-4.500) uIu/ml Urine Ketones (Negative) 03/31/22 03/31/22 Range/Units 14:15 20:22 Lymph # (Auto) (1.2-3.4) K/uL Glucose (70-99(Fasting)) mg/dl POC Glucose 143 H (70-99) mg/dl TSH (0.300-4.500) uIu/ml Urine Ketones Trace H (Negative) Diagnostic Findings Chest X-Ray 03/31/22 13:05 SINGLE VIEW CHEST CLINICAL HISTORY: Change in mental status. FINDINGS: An AP, portable, upright chest radiograph is obtained. No prior studies are available for comparison at the time of dictation. The heart is top normal for projection noting atherosclerotic calcification of the thoracic aorta. There is bibasilar scarring/atelectasis. The lungs and pleural spaces are otherwise clear. No pneumothorax is seen. The skeletal structures are osteopenic. The bony thorax is grossly intact. IMPRESSION: No active disease in the chest. ACT 112: Negative or not required by law. Electronically signed by: Andrew Thomason M.D. 03/31/2022 2:[address] 03/31/22 14:[address] OF THE BRAIN; CT ANGIOGRAM OF THE BRAIN; CT ANGIOGRAM OF THE NECK CLINICAL HISTORY: Strokelike symptoms. Global amnesia. COMPARISON STUDY: No priors. TECHNIQUE: Unenhanced axial CT scan of the brain is performed. Subsequently, following the IV administration of 120 of Optiray 320, CT angiogram of the head and neck was performed from the aortic arch to the vertex. Images are reviewed in the axial, sagittal, and coronal planes. 3-D MIPS images are created and assessed. IV contrast was administered without complication. All measurements were calculated based on NASCET criteria. A dose lowering technique was utilized adhering to the principles of ALARA. CT DOSE: 1107.58 mGy.cm FINDINGS: Brain parenchyma: There is age-related involutional change noting minimal subcortical and periventricular microangiopathic disease. There is no hemorrhage, mass effect, or evidence of acute territorial ischemia by CT criteria. There is no evidence of enhancing mass lesion on the angiogram phase images. The ventricles, sulci, and cisterns are prominent secondary to involutional change. Bowers-white matter differentiation is preserved. No extra- axial fluid collection is seen. Thoracic aorta: There is atherosclerotic calcification of the thoracic aorta. Visualized portions of the thoracic aorta are normal in caliber. The aortic arch demonstrates standard 3-vessel anatomy. Right carotid arterial system: The right common carotid artery is widely patent, as are the right internal and external carotid arteries. Calcified plaque is seen in the carotid bulb. Left carotid arterial system: The left common carotid artery is widely patent, as are the left internal and external carotid arteries. Calcified plaque is noted in the carotid bulb. Vertebral arteries: The vertebral arteries are widely patent bilaterally. The left vertebral artery is dominant. Subclavian arteries: Widely patent bilaterally. Intracranial vasculature: The internal carotid arteries are patent at the skull base, as are the anterior and middle cerebral arteries bilaterally. The vertebrobasilar system and posterior cerebral arteries are widely patent. The left vertebral artery is dominant. The intracranial right vertebral artery is diminutive. There is no aneurysm, high-grade stenosis, or focal vessel cut off seen throughout the intracranial circulation. Jugular veins: Patent bilaterally. Dural sinuses: Patent. Lung apices: Partially visualized upper lobe lung parenchyma appears clear. Soft tissues: The visualized pharyngeal soft tissues are normal in appearance noting angiographic phase technique. The oropharyngeal airway appears widely patent. The salivary and thyroid glands are normal in appearance. No cervical lymphadenopathy is seen. Skeletal structures: The skeletal structures are osteopenic. The calvarium appears intact. The cervical spine is maintained noting mild multilevel spondylosis. No lytic or blastic lesion is seen. Orbits: The bony orbits are intact. Orbital contents are normal as visualized. Sinuses and mastoids: There is mild mucosal thickening within the left maxillary antrum. Trace mucosal thickening is noted in the ethmoid sinuses. The remaining Paranasal sinuses are clear. The mastoid air cells are well pneumatized. IMPRESSION: 1. There is no hemorrhage, mass effect, or evidence of acute territorial ischemia by CT criteria. 2. Unremarkable CT angiogram of the brain. 3. Unremarkable CT angiogram of the neck. ACT 112: Negative or not required by law. Electronically signed by: Andrew Thomason M.D. 03/31/2022 3:34 PM Head CTA 03/31/22 14:[address] OF THE BRAIN; CT ANGIOGRAM OF THE BRAIN; CT ANGIOGRAM OF THE NECK CLINICAL HISTORY: Strokelike symptoms. Global amnesia. COMPARISON STUDY: No priors. TECHNIQUE: Unenhanced axial CT scan of the brain is performed. Subsequently, following the IV administration of 120 of Optiray 320, CT angiogram of the head and neck was performed from the aortic arch to the vertex. Images are reviewed in the axial, sagittal, and coronal planes. 3-D MIPS images are created and assessed. IV contrast was administered without complication. All measurements were calculated based on NASCET criteria. A dose lowering technique was utilized adhering to the principles of ALARA. CT DOSE: 1107.58 mGy.cm FINDINGS: Brain parenchyma: There is age-related involutional change noting minimal subcortical and periventricular microangiopathic disease. There is no hemorrhage, mass effect, or evidence of acute territorial ischemia by CT criteria. There is no evidence of enhancing mass lesion on the angiogram phase images. The ventricles, sulci, and cisterns are prominent secondary to involutional change. Bowers-white matter differentiation is preserved. No extra- axial fluid collection is seen. Thoracic aorta: There is atherosclerotic calcification of the thoracic aorta. Visualized portions of the thoracic aorta are normal in caliber. The aortic arch demonstrates standard 3-vessel anatomy. Right carotid arterial system: The right common carotid artery is widely patent, as are the right internal and external carotid arteries. Calcified plaque is seen in the carotid bulb. Left carotid arterial system: The left common carotid artery is widely patent, as are the left internal and external carotid arteries. Calcified plaque is noted in the carotid bulb. Vertebral arteries: The vertebral arteries are widely patent bilaterally. The left vertebral artery is dominant. Subclavian arteries: Widely patent bilaterally. Intracranial vasculature: The internal carotid arteries are patent at the skull base, as are the anterior and middle cerebral arteries bilaterally. The vertebrobasilar system and posterior cerebral arteries are widely patent. The left vertebral artery is dominant. The intracranial right vertebral artery is diminutive. There is no aneurysm, high-grade stenosis, or focal vessel cut off seen throughout the intracranial circulation. Jugular veins: Patent bilaterally. Dural sinuses: Patent. Lung apices: Partially visualized upper lobe lung parenchyma appears clear. Soft tissues: The visualized pharyngeal soft tissues are normal in appearance noting angiographic phase technique. The oropharyngeal airway appears widely patent. The salivary and thyroid glands are normal in appearance. No cervical lymphadenopathy is seen. Skeletal structures: The skeletal structures are osteopenic. The calvarium appears intact. The cervical spine is maintained noting mild multilevel spondylosis. No lytic or blastic lesion is seen. Orbits: The bony orbits are intact. Orbital contents are normal as visualized. Sinuses and mastoids: There is mild mucosal thickening within the left maxillary antrum. Trace mucosal thickening is noted in the ethmoid sinuses. The remaining Paranasal sinuses are clear. The mastoid air cells are well pneumatized. IMPRESSION: 1. There is no hemorrhage, mass effect, or evidence of acute territorial ischemia by CT criteria. 2. Unremarkable CT angiogram of the brain. 3. Unremarkable CT angiogram of the neck. ACT 112: Negative or not required by law. Electronically signed by: Andrew Thomason M.D. 03/31/2022 3:34 PM Neck CTA 03/31/22 14:[address] OF THE BRAIN; CT ANGIOGRAM OF THE BRAIN; CT ANGIOGRAM OF THE NECK CLINICAL HISTORY: Strokelike symptoms. Global amnesia. COMPARISON STUDY: No priors. TECHNIQUE: Unenhanced axial CT scan of the brain is performed. Subsequently, following the IV administration of 120 of Optiray 320, CT angiogram of the head and neck was performed from the aortic arch to the vertex. Images are reviewed in the axial, sagittal, and coronal planes. 3-D MIPS images are created and assessed. IV contrast was administered without complication. All measurements were calculated based on NASCET criteria. A dose lowering technique was utilized adhering to the principles of ALARA. CT DOSE: 1107.58 mGy.cm FINDINGS: Brain parenchyma: There is age-related involutional change noting minimal subcortical and periventricular microangiopathic disease. There is no hemorrhage, mass effect, or evidence of acute territorial ischemia by CT criteria. There is no evidence of enhancing mass lesion on the angiogram phase images. The ventricles, sulci, and cisterns are prominent secondary to invo lutional change. Bowers-white matter differentiation is preserved. No extra-axial fluid collection is seen. Thoracic aorta: There is atherosclerotic calcification of the thoracic aorta. Visualized portions of the thoracic aorta are normal in caliber. The aortic arch demonstrates standard 3-vessel anatomy. Right carotid arterial system: The right common carotid artery is widely patent, as are the right internal and external carotid arteries. Calcified plaque is seen in the carotid bulb. Left carotid arterial system: The left common carotid artery is widely patent, as are the left internal and external carotid arteries. Calcified plaque is noted in the carotid bulb. Vertebral arteries: The vertebral arteries are widely patent bilaterally. The left vertebral artery is dominant. Subclavian arteries: Widely patent bilaterally. Intracranial vasculature: The internal carotid arteries are patent at the skull base, as are the anterior and middle cerebral arteries bilaterally. The vert ebrobasilar system and posterior cerebral arteries are widely patent. The left vertebral artery is dominant. The intracranial right vertebral artery is diminutive. There is no aneurysm, high-grade stenosis, or focal vessel cut off seen throughout the intracranial circulation. Jugular veins: Patent bilaterally. Dural sinuses: Patent. Lung apices: Partially visualized upper lobe lung parenchyma appears clear. Soft tissues: The visualized pharyngeal soft tissues are normal in appearance noting angiographic phase technique. The oropharyngeal airway appears widely patent. The salivary and thyroid glands are normal in appearance. No cervical lymphadenopathy is seen. Skeletal structures: The skeletal structures are osteopenic. The calvarium appears intact. The cervical spine is maintained noting mild multilevel spondylosis. No lytic or blastic lesion is seen. Orbits: The bony orbits are intact. Orbital contents are normal as visualized. Sinuses and mastoids: There is mild mucosal thickening within the left maxillary antrum. Trace mucosal thickening is noted in the ethmoid sinuses. The remaining Paranasal sinuses are clear. The mastoid air cells are well pneumatized. IMPRESSION: 1. There is no hemorrhage, mass effect, or evidence of acute territorial ischemia by CT criteria. 2. Unremarkable CT angiogram of the brain. 3. Unremarkable CT angiogram of the neck. ACT 112: Negative or not required by law. Electronically signed by: Andrew Thomason M.D. 03/31/2022 3:34 PM Brain MRI 03/31/22 17:27 MRI OF THE BRAIN COMBO CLINICAL HISTORY: Global amnesia. COMPARISON STUDY: CT of the brain dated 03/31/2022. TECHNIQUE: MRI of the brain was performed utilizing various T1 and T2-weighted sequences in the axial, sagittal, and coronal planes. Contrast-enhanced sequences were acquired following the administration of 8 cc of Gadavist. FINDINGS: Brain parenchyma: There is age-related involutional change noting minimal micro angiopathic disease. There is no hemorrhage or mass effect. There is no restricted diffusion to suggest acute ischemia. No enhancing mass lesion is identified on the postcontrast images. Bowers-white matter differentiation is preserved. No extra-axial fluid collection is seen. The cerebellar tonsils are normal in configuration. Ventricles, sulci, and cisterns: Prominent secondary to involutional change. Pituitary and sella: Unremarkable. Intracranial vasculature: Normal flow voids are maintained at the skull base. Orbits: The bony orbits are grossly intact. Orbital contents are normal in appearance. Sinuses and mastoids: There is trace mucosal thickening in the left frontal sinus, the left maxillary sinus, and the left ethmoid sinuses. Mastoid air cells are clear. Calvarium: Unremarkable. Cervical cord: Partially visualized cervical spinal cord is normal in morphology and signal intensity. IMPRESSION: No acute intracranial abnormality. ACT 112: Negative or not required by law. Electronically signed by: Andrew Thomason M.D. 03/31/2022 6:29 PM ECG Additional Comments: Poor data quality, interpretation may be adversely affected Normal sinus rhythm Normal ECG When compared with ECG of 10-AUG-2003 07:29, No significant change was found. Code Status & VTE Plan Code Status Full code. VTE Prophylaxis Plan VTE Prophylaxis will be ordered: Yes Supervising Physician Co-Signing Physician Notes I supervised Thais Traylor PA-C on this admission. I interviewed and examined the patient independently of her. The plan is as written in the PA/BEVELING MACHINE OPERATOR's note except for any following changes/exceptions: None 76yo M w/ PMH of DM and prior prostate cancer who presents with what appears to be a global transient amnesia. After bahai, he had about 45 minutes of confusion which resolved by the time of admission. His MRI shows no stroke. Will have neurology assess in the AM, and hope for early discharge. PG Care Time/CCT Total # of Minutes Spent Total Time Spent with Patient: Total time spent is greater than 50% in coordination of care (as documented) at patient's floor/unit and/or counseling patient: Coding Level of Care Code INT OBSERVATION CARE 70M LVL 3 Diagnoses Prostate cancer C61 DM2 (diabetes mellitus, type 2) E11.9 Transient global amnesia G45.4 Elevated TSH R79.89 Elevated blood pressure reading without diagnosis of hypertension R03.0
--- NOTE | 2022-04-01 07:04 | Electrocardiogram Report ---
Test Reason : Blood Pressure : / mmHG Vent. Rate : 088 BPM Atrial Rate : 088 BPM P-R Int : 172 ms QRS Dur : 078 ms QT Int : 362 ms P-R-T Axes : 080 078 081 degrees QTc Int : 438 ms Poor data quality, interpretation may be adversely affected Normal sinus rhythm Normal ECG When compared with ECG of 10-AUG-2003 07:29, No significant change was found Confirmed by Baldomero Hahn ([id number]) on 04/01/2022 7:03:56 AM Referred By: Confirmed By:Baldomero Hahn
[2022-04-01 07:21] LABS: Basophils # (auto) 0.01 K/uL (0-0.2); Basophils % (auto) 0.2 %; Eosinophils # (auto) 0.24 K/uL (0-0.5); Eosinophils % (auto) 4.7 %; Hematocrit (blood only) 43.1 % (42-52); Immature Granulocytes # (auto) 0.01 K/uL (0.00-0.02); Immature Granulocytes % (auto) 0.2 %; Lymphocytes # (auto) 1.29 K/uL (1.2-3.4); Mean Corpuscular Hemoglobin 31.4 pg (25-34); Mean Corpuscular Hgb Conc 34.8 g/dL (32-36); Mean Corpuscular Volume 90.2 fL (80-100); Mean Platelet Volume 9.1 fL (7.4-10.4); Monocytes # (auto) 0.52 K/uL (0.11-0.59); Monocytes % (auto) 10.1 %; Neutrophils # (auto) 3.09 K/uL (1.4-6.5); Neutrophils % (auto) 59.8 %; Platelet Count 161 K/uL (130-400); RDW Coefficient of Variation 11.9 % (11.5-14.5); RDW Standard Deviation 38.9 fL (36.4-46.3); Red Blood Count 4.78 M/uL (4.7-6.1); White Blood Count 5.16 K/uL (4.8-10.8)
[2022-04-01 07:50] LABS: BUN Creatinine Ratio 17.9 (10-20); Chol HDL Ratio 4.4 (0-5); Est GFR (African American) 90.4 ml/min
--- NOTE | 2022-04-01 08:03 | Hospitalist Progress Note ---
Date of Service April 01, 2022 Assessment & Plan (1) Transient global amnesia: Plan: - Transient global amnesia versus TIA. So far, work-up to include CT head, CTA head and neck, MRI brain all negative for CVA. - Received ASA 324 mg in ED, will start patient on ASA 81 daily, change per neuro recommendations. - We will obtain lipid panel, A1c, echo. - Neurology consult in AM. (2) Prostate cancer: Plan: - s/p radiation treatment, will find out this month if he is in remission. - MRI brain without any evidence of metastatic disease. - Continue Flomax. (3) DM2 (diabetes mellitus, type 2): Plan: - On metformin at home, will hold in the hospital. - Patient states that sugars are between 100 - 130. - Accu-Cheks achs with sliding scale insulin. - Diabetic diet. - A1c in AM. (4) Elevated TSH: Plan: - TSH 7.548, free T4 0.267. - Recommend follow-up with PCP. (5) Elevated blood pressure reading without diagnosis of hypertension: Plan: - Patient reports he has "white coat syndrome", does check blood pressure at home and systolic BP typically 120s. - Continue to monitor, can follow-up as outpatient. Plan: - Obs med/surg. - SCDs for DVT ppx. - Full Code. Admission and Anticipated Discharge Date Admission Date: March 31, 2022 Results & Data Results & Data ([facility]) Vital Signs (Past 12 Hours) Vital Signs Temp Pulse Pulse Resp BP Pulse Ox 04/01/22 06:13 82 04/01/22 06:12 37.1 C 87 18 117/73 94 04/01/22 03:43 37.2 C 85 20 130/80 96 03/31/22 23:09 36.9 C 79 16 134/78 95 03/31/22 22:18 77 Laboratory Results 04/01/22 04/01/22 04/01/22 Range/Units 07:27 07:08 07:08 WBC (4.8-10.8) K/uL RBC (4.7-6.1) M/uL Hgb (14.0-18.0) g/dL Hct (42-52) % MCV (80-100) fL MCH (25-34) pg MCHC (32-36) g/dL RDW Std Deviation (36.4-46.3) fL RDW Coeff of Anita (11.5-14.5) % Plt Count (130-400) K/uL MPV (7.4-10.4) fL Immature Gran % (Auto) % Neut % (Auto) % Lymph % (Auto) % Atkinson % (Auto) % Eos % (Auto) % Baso % (Auto) % Neut # (Auto) (1.4-6.5) K/uL Lymph # (Auto) (1.2-3.4) K/uL Atkinson # (Auto) (0.11-0.59) K/uL Eos # (Auto) (0-0.5) K/uL Baso # (Auto) (0-0.2) K/uL Immature Gran # (Auto) (0.00-0.02) K/uL PT (9.0-12.0) Seconds INR (0.9-1.1) APTT (21.0-31.0) Seconds PTT Ratio Sodium 137 (136-145) mmol/L Potassium 4.0 (3.5-5.1) mmol/L Chloride 105 (98-107) mmol/L Carbon Dioxide 27 (21-32) mmol/L Anion Gap 5 (3-11) BUN 17 (6-23) mg/dl Creatinine 0.95 (0.6-1.4) mg/dl Est Cr Clr Drug Dosing 65.0 ml/min Est GFR ( Amer) 90.4 ml/min Est GFR (Non-Af Amer) 78.0 ml/min BUN/Creatinine Ratio 17.9 (10-20) Glucose 102 H (70-99(Fasting)) mg/dl POC Glucose 108 H (70-99) mg/dl Estimat Average Glucose Pending Hemoglobin A1c Pending Calcium 9.0 (8.5-10.1) mg/dl Magnesium (1.7-2.4) mg/dl Total Bilirubin (0.2-1.0) mg/dl AST (13-39) U/L ALT (7-52) U/L Alkaline Phosphatase (34-104) U/L Troponin I High Sens (0-20) pg/ml Total Protein (6.0-8.3) gm/dl Albumin (3.4-5.0) gm/dl Globulin (2.5-4.0) gm/dl Albumin/Globulin Ratio (0.9-2) Triglycerides 101 (0-150) mg/dl Cholesterol 177 (0-200) mg/dl LDL Cholesterol, Calc 117 mg/dl VLDL Cholesterol, Calc 20 (0-30) mg/dl HDL Cholesterol 40 mg/dl Cholesterol/HDL Ratio 4.4 (0-5) TSH (0.300-4.500) uIu/ml Free T4 (0.61-1.60) ng/dl Urine Color Urine Appearance (Clear) Urine pH (4.5-7.5) Ur Specific [place] (1.000-1.030) Urine Protein (Negative) Urine Glucose (UA) (Negative) Urine Ketones (Negative) Urine Blood (Negative) Urine Nitrite (Negative) Urine Bilirubin (Negative) Urine Urobilinogen (Negative) Ur Leukocyte Esterase (Negative) SARS-CoV-2, RNA, NAAT (NEGATIVE) Blood Type Antibody Screen 04/01/22 03/31/22 03/31/22 Range/Units 07:08 20:22 16:10 WBC 5.16 (4.8-10.8) K/uL RBC 4.78 (4.7-6.1) M/uL Hgb 15.0 (14.0-18.0) g/dL Hct 43.1 (42-52) % MCV 90.2 (80-100) fL MCH 31.4 (25-34) pg MCHC 34.8 (32-36) g/dL RDW Std Deviation 38.9 (36.4-46.3) fL RDW Coeff of Anita 11.9 (11.5-14.5) % Plt Count 161 (130-400) K/uL MPV 9.1 (7.4-10.4) fL Immature Gran % (Auto) 0.2 % Neut % (Auto) 59.8 % Lymph % (Auto) 25.0 % Atkinson % (Auto) 10.1 % Eos % (Auto) 4.7 % Baso % (Auto) 0.2 % Neut # (Auto) 3.09 (1.4-6.5) K/uL Lymph # (Auto) 1.29 (1.2-3.4) K/uL Atkinson # (Auto) 0.52 (0.11-0.59) K/uL Eos # (Auto) 0.24 (0-0.5) K/uL Baso # (Auto) 0.01 (0-0.2) K/uL Immature Gran # (Auto) 0.01 (0.00-0.02) K/uL PT (9.0-12.0) Seconds INR (0.9-1.1) APTT (21.0-31.0) Seconds PTT Ratio Sodium (136-145) mmol/L Potassium (3.5-5.1) mmol/L Chloride (98-107) mmol/L Carbon Dioxide (21-32) mmol/L Anion Gap (3-11) BUN (6-23) mg/dl Creatinine (0.6-1.4) mg/dl Est Cr Clr Drug Dosing ml/min Est GFR ( Amer) ml/min Est GFR (Non-Af Amer) ml/min BUN/Creatinine Ratio (10-20) Glucose (70-99(Fasting)) mg/dl POC Glucose 143 H (70-99) mg/dl Estimat Average Glucose Hemoglobin A1c Calcium (8.5-10.1) mg/dl Magnesium (1.7-2.4) mg/dl Total Bilirubin (0.2-1.0) mg/dl AST (13-39) U/L ALT (7-52) U/L Alkaline Phosphatase (34-104) U/L Troponin I High Sens (0-20) pg/ml Total Protein (6.0-8.3) gm/dl Albumin (3.4-5.0) gm/dl Globulin (2.5-4.0) gm/dl Albumin/Globulin Ratio (0.9-2) Triglycerides (0-150) mg/dl Cholesterol (0-200) mg/dl LDL Cholesterol, Calc mg/dl VLDL Cholesterol, Calc (0-30) mg/dl HDL Cholesterol mg/dl Cholesterol/HDL Ratio (0-5) TSH (0.300-4.500) uIu/ml Free T4 (0.61-1.60) ng/dl Urine Color Urine Appearance (Clear) Urine pH (4.5-7.5) Ur Specific [place] (1.000-1.030) Urine Protein (Negative) Urine Glucose (UA) (Negative) Urine Ketones (Negative) Urine Blood (Negative) Urine Nitrite (Negative) Urine Bilirubin (Negative) Urine Urobilinogen (Negative) Ur Leukocyte Esterase (Negative) SARS-CoV-2, RNA, NAAT NEGATIVE (NEGATIVE) Blood Type Antibody Screen 03/31/22 03/31/22 03/31/22 Range/Units 15:02 15:02 14:15 WBC (4.8-10.8) K/uL RBC (4.7-6.1) M/uL Hgb (14.0-18.0) g/dL Hct (42-52) % MCV (80-100) fL MCH (25-34) pg MCHC (32-36) g/dL RDW Std Deviation (36.4-46.3) fL RDW Coeff of Anita (11.5-14.5) % Plt Count (130-400) K/uL MPV (7.4-10.4) fL Immature Gran % (Auto) % Neut % (Auto) % Lymph % (Auto) % Atkinson % (Auto) % Eos % (Auto) % Baso % (Auto) % Neut # (Auto) (1.4-6.5) K/uL Lymph # (Auto) (1.2-3.4) K/uL Atkinson # (Auto) (0.11-0.59) K/uL Eos # (Auto) (0-0.5) K/uL Baso # (Auto) (0-0.2) K/uL Immature Gran # (Auto) (0.00-0.02) K/uL PT (9.0-12.0) Seconds INR (0.9-1.1) APTT (21.0-31.0) Seconds PTT Ratio Sodium (136-145) mmol/L Potassium (3.5-5.1) mmol/L Chloride (98-107) mmol/L Carbon Dioxide (21-32) mmol/L Anion Gap (3-11) BUN (6-23) mg/dl Creatinine (0.6-1.4) mg/dl Est Cr Clr Drug Dosing ml/min Est GFR ( Amer) ml/min Est GFR (Non-Af Amer) ml/min BUN/Creatinine Ratio (10-20) Glucose (70-99(Fasting)) mg/dl POC Glucose (70-99) mg/dl Estimat Average Glucose Hemoglobin A1c Calcium (8.5-10.1) mg/dl Magnesium (1.7-2.4) mg/dl Total Bilirubin (0.2-1.0) mg/dl AST (13-39) U/L ALT (7-52) U/L Alkaline Phosphatase (34-104) U/L Troponin I High Sens 4.3 (0-20) pg/ml Total Protein (6.0-8.3) gm/dl Albumin (3.4-5.0) gm/dl Globulin (2.5-4.0) gm/dl Albumin/Globulin Ratio (0.9-2) Triglycerides (0-150) mg/dl Cholesterol (0-200) mg/dl LDL Cholesterol, Calc mg/dl VLDL Cholesterol, Calc (0-30) mg/dl HDL Cholesterol mg/dl Cholesterol/HDL Ratio (0-5) TSH (0.300-4.500) uIu/ml Free T4 0.67 (0.61-1.60) ng/dl Urine Color Urine Appearance (Clear) Urine pH (4.5-7.5) Ur Specific [place] (1.000-1.030) Urine Protein (Negative) Urine Glucose (UA) (Negative) Urine Ketones (Negative) Urine Blood (Negative) Urine Nitrite (Negative) Urine Bilirubin (Negative) Urine Urobilinogen (Negative) Ur Leukocyte Esterase (Negative) SARS-CoV-2, RNA, NAAT (NEGATIVE) Blood Type B Positive Antibody Screen NEGATIVE 03/31/22 03/31/22 03/31/22 Range/Units 14:15 14:15 14:15 WBC (4.8-10.8) K/uL RBC (4.7-6.1) M/uL Hgb (14.0-18.0) g/dL Hct (42-52) % MCV (80-100) fL MCH (25-34) pg MCHC (32-36) g/dL RDW Std Deviation (36.4-46.3) fL RDW Coeff of Anita (11.5-14.5) % Plt Count (130-400) K/uL MPV (7.4-10.4) fL Immature Gran % (Auto) % Neut % (Auto) % Lymph % (Auto) % Atkinson % (Auto) % Eos % (Auto) % Baso % (Auto) % Neut # (Auto) (1.4-6.5) K/uL Lymph # (Auto) (1.2-3.4) K/uL Atkinson # (Auto) (0.11-0.59) K/uL Eos # (Auto) (0-0.5) K/uL Baso # (Auto) (0-0.2) K/uL Immature Gran # (Auto) (0.00-0.02) K/uL PT (9.0-12.0) Seconds INR (0.9-1.1) APTT (21.0-31.0) Seconds PTT Ratio Sodium 138 (136-145) mmol/L Potassium 3.9 (3.5-5.1) mmol/L Chloride 103 (98-107) mmol/L Carbon Dioxide 27 (21-32) mmol/L Anion Gap 8 (3-11) BUN 19 (6-23) mg/dl Creatinine 0.95 (0.6-1.4) mg/dl Est Cr Clr Drug Dosing 65.0 ml/min Est GFR ( Amer) 90.4 ml/min Est GFR (Non-Af Amer) 78.0 ml/min BUN/Creatinine Ratio 20.0 (10-20) Glucose 105 H (70-99(Fasting)) mg/dl POC Glucose (70-99) mg/dl Estimat Average Glucose Hemoglobin A1c Calcium 9.8 (8.5-10.1) mg/dl Magnesium 2.2 (1.7-2.4) mg/dl Total Bilirubin 0.9 (0.2-1.0) mg/dl AST 16 (13-39) U/L ALT 13 (7-52) U/L Alkaline Phosphatase 55 (34-104) U/L Troponin I High Sens (0-20) pg/ml Total Protein 7.4 (6.0-8.3) gm/dl Albumin 4.6 (3.4-5.0) gm/dl Globulin 2.8 (2.5-4.0) gm/dl Albumin/Globulin Ratio 1.6 (0.9-2) Triglycerides (0-150) mg/dl Cholesterol (0-200) mg/dl LDL Cholesterol, Calc mg/dl VLDL Cholesterol, Calc (0-30) mg/dl HDL Cholesterol mg/dl Cholesterol/HDL Ratio (0-5) TSH 7.548 H (0.300-4.500) uIu/ml Free T4 (0.61-1.60) ng/dl Urine Color Yellow Urine Appearance Clear (Clear) Urine pH 5.0 (4.5-7.5) Ur Specific [place] 1.010 (1.000-1.030) Urine Protein Negative (Negative) Urine Glucose (UA) Negative (Negative) Urine Ketones Trace H (Negative) Urine Blood Negative (Negative) Urine Nitrite Negative (Negative) Urine Bilirubin Negative (Negative) Urine Urobilinogen Negative (Negative) Ur Leukocyte Esterase Negative (Negative) SARS-CoV-2, RNA, NAAT (NEGATIVE) Blood Type Antibody Screen 03/31/22 03/31/22 Range/Units 14:15 14:15 WBC 6.09 (4.8-10.8) K/uL RBC 5.17 (4.7-6.1) M/uL Hgb 16.4 (14.0-18.0) g/dL Hct 47.0 (42-52) % MCV 90.9 (80-100) fL MCH 31.7 (25-34) pg MCHC 34.9 (32-36) g/dL RDW Std Deviation 40.0 (36.4-46.3) fL RDW Coeff of Anita 11.9 (11.5-14.5) % Plt Count 172 (130-400) K/uL MPV 9.3 (7.4-10.4) fL Immature Gran % (Auto) 0.2 % Neut % (Auto) 73.0 % Lymph % (Auto) 15.9 % Atkinson % (Auto) 7.9 % Eos % (Auto) 2.8 % Baso % (Auto) 0.2 % Neut # (Auto) 4.45 (1.4-6.5) K/uL Lymph # (Auto) 0.97 L (1.2-3.4) K/uL Atkinson # (Auto) 0.48 (0.11-0.59) K/uL Eos # (Auto) 0.17 (0-0.5) K/uL Baso # (Auto) 0.01 (0-0.2) K/uL Immature Gran # (Auto) 0.01 (0.00-0.02) K/uL PT 10.8 (9.0-12.0) Seconds INR 1.0 (0.9-1.1) APTT 27.9 (21.0-31.0) Seconds PTT Ratio 1.0 Sodium (136-145) mmol/L Potassium (3.5-5.1) mmol/L Chloride (98-107) mmol/L Carbon Dioxide (21-32) mmol/L Anion Gap (3-11) BUN (6-23) mg/dl Creatinine (0.6-1.4) mg/dl Est Cr Clr Drug Dosing ml/min Est GFR ( Amer) ml/min Est GFR (Non-Af Amer) ml/min BUN/Creatinine Ratio (10-20) Glucose (70-99(Fasting)) mg/dl POC Glucose (70-99) mg/dl Estimat Average Glucose Hemoglobin A1c Calcium (8.5-10.1) mg/dl Magnesium (1.7-2.4) mg/dl Total Bilirubin (0.2-1.0) mg/dl AST (13-39) U/L ALT (7-52) U/L Alkaline Phosphatase (34-104) U/L Troponin I High Sens (0-20) pg/ml Total Protein (6.0-8.3) gm/dl Albumin (3.4-5.0) gm/dl Globulin (2.5-4.0) gm/dl Albumin/Globulin Ratio (0.9-2) Triglycerides (0-150) mg/dl Cholesterol (0-200) mg/dl LDL Cholesterol, Calc mg/dl VLDL Cholesterol, Calc (0-30) mg/dl HDL Cholesterol mg/dl Cholesterol/HDL Ratio (0-5) TSH (0.300-4.500) uIu/ml Free T4 (0.61-1.60) ng/dl Urine Color Urine Appearance (Clear) Urine pH (4.5-7.5) Ur Specific [place] (1.000-1.030) Urine Protein (Negative) Urine Glucose (UA) (Negative) Urine Ketones (Negative) Urine Blood (Negative) Urine Nitrite (Negative) Urine Bilirubin (Negative) Urine Urobilinogen (Negative) Ur Leukocyte Esterase (Negative) SARS-CoV-2, RNA, NAAT (NEGATIVE) Blood Type Antibody Screen Diagnostic Findings Chest X-Ray 03/31/22 13:05 SINGLE VIEW CHEST CLINICAL HISTORY: Change in mental status. FINDINGS: An AP, portable, upright chest radiograph is obtained. No prior studies are available for comparison at the time of dictation. The heart is top normal for projection noting atherosclerotic calcification of the thoracic aorta. There is bibasilar scarring/atelectasis. The lungs and pleural spaces are otherwise clear. No pneumothorax is seen. The skeletal structures are osteopenic. The bony thorax is grossly intact. IMPRESSION: No active disease in the chest. ACT 112: Negative or not required by law. Electronically signed by: Andrew Thomason M.D. 03/31/2022 2:[address] 03/31/22 14:[address] OF THE BRAIN; CT ANGIOGRAM OF THE BRAIN; CT ANGIOGRAM OF THE NECK CLINICAL HISTORY: Strokelike symptoms. Global amnesia. COMPARISON STUDY: No priors. TECHNIQUE: Unenhanced axial CT scan of the brain is performed. Subsequently, following the IV administration of 120 of Optiray 320, CT angiogram of the head and neck was performed from the aortic arch to the vertex. Images are reviewed in the axial, sagittal, and coronal planes. 3-D MIPS images are created and assessed. IV contrast was administered without complication. All measurements were calculated based on NASCET criteria. A dose lowering technique was utilized adhering to the principles of ALARA. CT DOSE: 1107.58 mGy.cm FINDINGS: Brain parenchyma: There is age-related involutional change noting minimal subcortical and periventricular microangiopathic disease. There is no hemorrhage, mass effect, or evidence of acute territorial ischemia by CT criteria. There is no evidence of enhancing mass lesion on the angiogram phase images. The ventricles, sulci, and cisterns are prominent secondary to involutional change. Bowers-white matter differentiation is preserved. No extra- axial fluid collection is seen. Thoracic aorta: There is atherosclerotic calcification of the thoracic aorta. Visualized portions of the thoracic aorta are normal in caliber. The aortic arch demonstrates standard 3-vessel anatomy. Right carotid arterial system: The right common carotid artery is widely patent, as are the right internal and external carotid arteries. Calcified plaque is seen in the carotid bulb. Left carotid arterial system: The left common carotid artery is widely patent, as are the left internal and external carotid arteries. Calcified plaque is noted in the carotid bulb. Vertebral arteries: The vertebral arteries are widely patent bilaterally. The left vertebral artery is dominant. Subclavian arteries: Widely patent bilaterally. Intracranial vasculature: The internal carotid arteries are patent at the skull base, as are the anterior and middle cerebral arteries bilaterally. The vertebrobasilar system and posterior cerebral arteries are widely patent. The left vertebral artery is dominant. The intracranial right vertebral artery is diminutive. There is no aneurysm, high-grade stenosis, or focal vessel cut off seen throughout the intracranial circulation. Jugular veins: Patent bilaterally. Dural sinuses: Patent. Lung apices: Partially visualized upper lobe lung parenchyma appears clear. Soft tissues: The visualized pharyngeal soft tissues are normal in appearance noting angiographic phase technique. The oropharyngeal airway appears widely patent. The salivary and thyroid glands are normal in appearance. No cervical lymphadenopathy is seen. Skeletal structures: The skeletal structures are osteopenic. The calvarium appears intact. The cervical spine is maintained noting mild multilevel sp ondylosis. No lytic or blastic lesion is seen. Orbits: The bony orbits are intact. Orbital contents are normal as visualized. Sinuses and mastoids: There is mild mucosal thickening within the left maxillary antrum. Trace mucosal thickening is noted in the ethmoid sinuses. The remaining Paranasal sinuses are clear. The mastoid air cells are well pneumatized. IMPRESSION: 1. There is no hemorrhage, mass effect, or evidence of acute territorial ischemia by CT criteria. 2. Unremarkable CT angiogram of the brain. 3. Unremarkable CT angiogram of the neck. ACT 112: Negative or not required by law. Electronically signed by: Andrew Thomason M.D. 03/31/2022 3:34 PM Head CTA 03/31/22 14:[address] OF THE BRAIN; CT ANGIOGRAM OF THE BRAIN; CT ANGIOGRAM OF THE NECK CLINICAL HISTORY: Strokelike symptoms. Global amnesia. COMPARISON STUDY: No priors. TECHNIQUE: Unenhanced axial CT scan of the brain is performed. Subsequently, following the IV administration of 120 of Optiray 320, CT angiogram of the head and neck was performed from the aortic arch to the vertex. Images are reviewed in the axial, sagittal, and coronal planes. 3-D MIPS images are created and assessed. IV contrast was administered without complication. All measurements were calculated based on NASCET criteria. A dose lowering technique was utilized adhering to the principles of ALARA. CT DOSE: 1107.58 mGy.cm FINDINGS: Brain parenchyma: There is age-related involutional change noting minimal subcortical and periventricular microangiopathic disease. There is no hemorrhage, mass effect, or evidence of acute territorial ischemia by CT criteria. There is no evidence of enhancing mass lesion on the angiogram phase images. The ventricles, sulci, and cisterns are prominent secondary to involutional change. Bowers-white matter differentiation is preserved. No extra- axial fluid collection is seen. Thoracic aorta: There is atherosclerotic calcification of the thoracic aorta. Visualized portions of the thoracic aorta are normal in caliber. The aortic arch demonstrates standard 3-vessel anatomy. Right carotid arterial system: The right common carotid artery is widely patent, as are the right internal and external carotid arteries. Calcified plaque is seen in the carotid bulb. Left carotid arterial system: The left common carotid artery is widely patent, as are the left internal and external carotid arteries. Calcified plaque is noted in the carotid bulb. Vertebral arteries: The vertebral arteries are widely patent bilaterally. The left vertebral artery is dominant. Subclavian arteries: Widely patent bilaterally. Intracranial vasculature: The internal carotid arteries are patent at the skull base, as are the anterior and middle cerebral arteries bilaterally. The vertebrobasilar system and posterior cerebral arteries are widely patent. The left vertebral artery is dominant. The intracranial right vertebral artery is diminutive. There is no aneurysm, high-grade stenosis, or focal vessel cut off seen throughout the intracranial circulation. Jugular veins: Patent bilaterally. Dural sinuses: Patent. Lung apices: Partially visualized upper lobe lung parenchyma appears clear. Soft tissues: The visualized pharyngeal soft tissues are normal in appearance noting angiographic phase technique. The oropharyngeal airway appears widely patent. The salivary and thyroid glands are normal in appearance. No cervical lymphadenopathy is seen. Skeletal structures: The skeletal structures are osteopenic. The calvarium appears intact. The cervical spine is maintained noting mild multilevel spondylosis. No lytic or blastic lesion is seen. Orbits: The bony orbits are intact. Orbital contents are normal as visualized. Sinuses and mastoids: There is mild mucosal thickening within the left maxillary antrum. Trace mucosal thickening is noted in the ethmoid sinuses. The remaining Paranasal sinuses are clear. The mastoid air cells are well pneumatized. IMPRESSION: 1. There is no hemorrhage, mass effect, or evidence of acute territorial ischemia by CT criteria. 2. Unremarkable CT angiogram of the brain. 3. Unremarkable CT angiogram of the neck. ACT 112: Negative or not required by law. Electronically signed by: Andrew Thomason M.D. 03/31/2022 3:34 PM Neck CTA 03/31/22 14:[address] OF THE BRAIN; CT ANGIOGRAM OF THE BRAIN; CT ANGIOGRAM OF THE NECK CLINICAL HISTORY: Strokelike symptoms. Global amnesia. COMPARISON STUDY: No priors. TECHNIQUE: Unenhanced axial CT scan of the brain is performed. Subsequently, following the IV administration of 120 of Optiray 320, CT angiogram of the head and neck was performed from the aortic arch to the vertex. Images are reviewed in the axial, sagittal, and coronal planes. 3-D MIPS images are created and assessed. IV contrast was administered without complication. All measurements were calculated based on NASCET criteria. A dose lowering technique was utilized adhering to the principles of ALARA. CT DOSE: 1107.58 mGy.cm FINDINGS: Brain parenchyma: There is age-related involutional change noting minimal subcortical and periventricular microangiopathic disease. There is no hemorrhage, mass effect, or evidence of acute territorial ischemia by CT criteria. There is no evidence of enhancing mass lesion on the angiogram phase images. The ventricles, sulci, and cisterns are prominent secondary to involutional change. Bowers-white matter differentiation is preserved. No extra- axial fluid collection is seen. Thoracic aorta: There is atherosclerotic calcification of the thoracic aorta. Visualized portions of the thoracic aorta are normal in caliber. The aortic arch demonstrates standard 3-vessel anatomy. Right carotid arterial system: The right common carotid artery is widely patent, as are the right internal and external carotid arteries. Calcified plaque is seen in the carotid bulb. Left carotid arterial system: The left common carotid artery is widely patent, as are the left internal and external carotid arteries. Calcified plaque is noted in the carotid bulb. Vertebral arteries: The vertebral arteries are widely patent bilaterally. The left vertebral artery is dominant. Subclavian arteries: Widely patent bilaterally. Intracranial vasculature: The internal carotid arteries are patent at the skull base, as are the anterior and middle cerebral arteries bilaterally. The vertebrobasilar system and posterior cerebral arteries are widely patent. The left vertebral artery is dominant. The intracranial right vertebral artery is diminutive. There is no aneurysm, high-grade stenosis, or focal vessel cut off seen throughout the intracranial circulation. Jugular veins: Patent bilaterally. Dural sinuses: Patent. Lung apices: Partially visualized upper lobe lung parenchyma appears clear. Soft tissues: The visualized pharyngeal soft tissues are normal in appearance noting angiographic phase technique. The oropharyngeal airway appears widely patent. The salivary and thyroid glands are normal in appearance. No cervical lymphadenopathy is seen. Skeletal structures: The skeletal structures are osteopenic. The calvarium appears intact. The cervical spine is maintained noting mild multilevel spondylosis. No lytic or blastic lesion is seen. Orbits: The bony orbits are intact. Orbital contents are normal as visualized. Sinuses and mastoids: There is mild mucosal thickening within the left maxillary antrum. Trace mucosal thickening is noted in the ethmoid sinuses. The remaining Paranasal sinuses are clear. The mastoid air cells are well pneumatized. IMPRESSION: 1. There is no hemorrhage, mass effect, or evidence of acute territorial ischemia by CT criteria. 2. Unremarkable CT angiogram of the brain. 3. Unremarkable CT angiogram of the neck. ACT 112: Negative or not required by law. Electronically signed by: Andrew Thomason M.D. 03/31/2022 3:34 PM Brain MRI 03/31/22 17:27 MRI OF THE BRAIN COMBO CLINICAL HISTORY: Global amnesia. COMPARISON STUDY: CT of the brain dated 03/31/2022. TECHNIQUE: MRI of the brain was performed utilizing various T1 and T2-weighted sequences in the axial, sagittal, and coronal planes. Contrast-enhanced sequences were acquired following the administration of 8 cc of Gadavist. FINDINGS: Brain parenchyma: There is age-related involutional change noting minimal microangiopathic disease. There is no hemorrhage or mass effect. There is no restricted diffusion to suggest acute ischemia. No enhancing mass lesion is identified on the postcontrast images. Bowers-white matter differentiation is preserved. No extra-axial fluid collection is seen. The cerebellar tonsils are normal in configuration. Ventricles, sulci, and cisterns: Prominent secondary to involutional change. Pituitary and sella: Unremarkable. Intracranial vasculature: Normal flow voids are maintained at the skull base. Orbits: The bony orbits are grossly intact. Orbital contents are normal in appearance. Sinuses and mastoids: There is trace mucosal thickening in the left frontal sinus, the left maxillary sinus, and the left ethmoid sinuses. Mastoid air cells are clear. Calvarium: Unremarkable. Cervical cord: Partially visualized cervical spinal cord is normal in morphology and signal intensity. IMPRESSION: No acute intracranial abnormality. ACT 112: Negative or not required by law. Electronically signed by: Andrew Thomason M.D. 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
[2022-04-01] MEDS: TAMSULOSIN HCL 0.4 MG CAP PO SCH (08:33)
[2022-04-01] MEDS: INSULIN ASPART PER UNIT SC SCH ×2 (08:37→12:04)
--- NOTE | 2022-04-01 08:48 | XCELERA ---
[id number]
[2022-04-01 08:55] LABS: Estimated Average Glucose 111 mg/dl; Hemoglobin A1C 5.5 % (4.5-5.6)
[2022-04-01] MEDS ORDERED: ASPIRIN 81 MG ECTAB PO SCH (09:00)
[2022-04-01] MEDS ORDERED: CHOLECALCIFEROL 1,000 UNITS 25 MCG TAB PO SCH (09:00)
[2022-04-01] MEDS ORDERED: ASCORBIC ACID 500 MG TAB PO SCH (09:00)
[2022-04-01] MEDS ORDERED: CALCIUM 600MG + VIT D 400 IU TAB PO SCH (09:00)
--- NOTE | 2022-04-01 10:15 | Neurology Consultation ---
Date of Consultation April 01, 2022 Assessment & Plan (1) Transient global amnesia: I agree with the diagnosis of transient global amnesia. Patient appears to be back at his baseline. No focal neurologic deficits. Patient's clinical presentation not suggestive of stroke, seizure, migraine, or encephalitis. He has had an unremarkable evaluation thus far including CT angiography of the head and neck and brain MRI. I do not see a need for EEG or lumbar puncture/CSF analysis at this point in time. The atrial septum was aneurysmal on echocardiography although this finding not likely clinically significant at this point in time. It does not look like a bubble study was completed and it may not be possible to completely exclude a right to left atrial shunt. Nonetheless, there was no evidence of acute stroke on MRI. Agree with addition of daily low-dose aspirin at this point in time in the context of patient's type 2 diabetes mellitus. However, the underlying pathophysiology of transient global amnesia is not known but is not felt to be ischemic in etiology. No further immediate recommendations. Prognosis for transient global amnesia is quite good with low risk for recurrence of most individuals. History of Present Illness Reason for Consultation: Transient global amnesia Requesting Physician: Thais Traylor PA-C Attending Physician: Herb Rodriguez History of Present Illness The patient is a 76-year-old male with a chief complaint of amnesia. He presented to the emergency department yesterday for further assessment of significant confusion that persisted for about 45 minutes after sexual activity with his spouse. He was reportedly awake, alert, and oriented but was profoundly amnestic, was repeating himself. He did not exhibit other obvious signs or symptoms such as dizziness, presyncope, loss of consciousness, shaking, seizure activity, focal weakness, slurred speech or aphasia. No headache, fevers or chills. No recent illness or injury. He has returned to baseline. His symptoms have not recurred. No prior episodes of amnesia. No known history of dementia. No known history of epilepsy, seizure disorder, migraine, or stroke. Past medical history notable for type 2 diabetes mellitus and prostate cancer. I did speak with patient's spouse over the phone, at bedside and corroborated the above information. Allergies Allergy/AdvReac Type Severity Reaction Status Date / Time finasteride AdvReac Breast Verified 03/31/22 15:29 tenderness Home Medications Medication Instructions Recorded Confirmed Type ascorbic acid (vitamin C) 500 mg 500 mg PO DAILY cap 10/16/21 03/31/22 History capsule calcium carb-ergocalciferol (vit 1 tab PO DAILY tab 10/16/21 03/31/22 History D2) 600 mg calcium-200 unit tablet cholecalciferol (vitamin D3) 125 125 mcg PO DAILY 10/16/21 03/31/22 History mcg (5,000 unit) capsule multivitamin 1 tab PO DAILY 10/16/21 03/31/22 History tamsulosin 0.4 mg capsule 0.4 mg PO BIDWMEAL #60 cap 12/24/21 03/31/22 Rx metformin 500 mg tablet 500 mg PO BID 01/07/22 03/31/22 History pumpkin seed extract 500 mg 500 mg PO DAILY cap 01/21/22 03/31/22 History capsule (Azo Men) royal jelly 500 mg capsule 500 mg PO TIDWMEAL 03/31/22 03/31/22 History Patient History Medical History Osteoarthritis Prostate cancer (09/07/21) Sleep apnea Surgical History H/O left inguinal hernia repair H/O umbilical hernia repair Family History Mother , in her 90s Natural with unknown cause Father , 93yo No problems noted. Brother Family history unknown Brother Family history unknown Brother Suicide Sister Family history unknown Sister Family history unknown Son No problems noted. Daughter No problems noted. Social History Smoking Status: Former smoker Cigarettes Per Day: 2 packs; Smoking End Date: 1987; Second Hand Exposure: No; Do You Dip or Chew Tobacco: No; Tobacco Cessation Education Requested by Patient: No Hx Alcohol Use: No Hx Substance Use: No Preferred Language: Bolivian Communication Ability: Effective Visual Impairment: No Limitations Hearing Ability: Normal Electrical Cad Technician Required: Yes and No Beliefs That Will Affect Care: None marital status: Current Living Situation: Spouse current occupational status: employed current occupation: Owns [employer] Other Information That Helps Us Care for You: No Feels Safe at Home: Yes Safety Concerns: Feels Safe At This Time caffeine: Yes (1 cup/day) during the past year weight has: remained stable Assistive Devices: Glasses Review of Systems Constitutional: no fever and no chills Eyes: no blind spots and no diplopia Ear, Nose, Mouth, Throat: no ear pain and no hearing loss Respiratory: no cough and no dyspnea Cardiovascular: no chest pain and no palpitations Gastrointestinal: no constipation and no diarrhea/loose stools Genitourinary: no urinary incontinence or no urinary urgency Musculoskeletal: no muscle weakness and no muscle atrophy Integumentary: no rash and no lesions Neurologic: as per Subjective / HPI Psychiatric: no behavioral changes, no depression, no abnormal sleep pattern and no anxiety Hematologic / Lymphatic: no easy bruising and no lymphadenopathy Exam (Neuro) Constitutional: well developed and well nourished; no acute distress Eyes: normal visual davila by confrontation, PERRL, normal accommodation and EOM intact bilaterally; no fundoscopic abnormality, no nystagmus and no papilledema Cardiovascular: Vessels: normal carotid upstroke; no carotid bruit Neurologic: Oriented to:: Person, Place and Time Memory: Short Term Intact and Remote Intact Attention: Span Intact and Concentration Intact Language: Naming Objects and Repeating Phrases Speech Fluency: negative Dysarthria Speech Aphasia: negative Aphasia Fund of Knowledge: Current Events, Past History and Vocabulary Cranial Nerves: Normal II (Visual davila full to confrontation, visual acuity normal), III, IV, (Pupils equal round reactive to light and accommodation, eye movements normal), V (Facial sensation intact), VII (There is no facial droop or weakness), VIII (Hearing intact), IX, X (Palate elevates to midline), XI (Shoulder shrug intact) and XII (Tongue protrudes to midline) Motor Strength: Normal Lower Extremities and Normal Upper Extremities; negative Pronator Drift Motor Tone: Normal Lower Extremities and Normal Upper Extremities Muscle Bulk/Involuntary Movements: No Involuntary Movements; negative Muscle Atrophy Sensation: Light Touch Intact, Pain/Temperature Intact, Vibration Intact and Proprioception Intact Coordination: Normal; negative Limited Balance, Dysdiadochokinesia, Finger-Nose Abnormal or Heel-Enriquez Abnormal Deep Tendon Reflexes: Rt Triceps: 2+, Lt Triceps: 2+, Rt Biceps: 2+, Lt Biceps: 2+, Rt Brachioradialis: 2+, Lt Brachioradialis: 2+, Rt Patellar: 2+, Lt Patellar: 2+, Rt Ankle: 2+ and Lt Ankle: 2+ Special Tests: negative Babinski Present Gait: Normal Station and Gait Results & Data ([facility]) Vital Signs (Past 12 Hours) Vital Signs Temp Pulse Pulse Resp BP Pulse Ox 04/01/22 06:13 82 04/01/22 06:12 37.1 C 87 18 117/73 94 04/01/22 03:43 37.2 C 85 20 130/80 96 03/31/22 23:09 36.9 C 79 16 134/78 95 03/31/22 22:18 77 Laboratory Results WBC 5.16, hemoglobin 15.0, hematocrit 43.1, MCV 90.2, platelet count 161, sodium 137, potassium 4.0, BUN 17, creatinine 0.95, glucose 102, hemoglobin A1c 5.5, calcium 9.0, magnesium 2.2, AST 16, ALT 13, triglycerides 101, cholesterol 177, LDL 117, VLDL 20, HDL 40, TSH 7.548, free T4 0.67. Diagnostic Findings CT of the head including CT angiography of the head and neck were unremarkable, no aneurysm, occlusion, dissection, hemorrhage, or acute process. MRI of the brain with and without gadolinium enhancement was unremarkable. I reviewed the images as well as the radiologist interpretation of this test. No areas of restricted diffusion, no blooming artifact on gradient echo sequences, there is minimal scattered subcortical T2/FLAIR hyperintensity. The hippocampal formations appear generally unremarkable on coronal FLAIR. No hydrocephalus. No abnormal postcontrast enhancement. An echocardiogram revealed normal left ventricular systolic function and wall motion. There was moderate aortic valve sclerosis without significant valvular stenosis. Left atrial size normal. Right atrial size normal. Atrial septum is aneurysmal. Electrocardiogram reveals a normal sinus rhythm, 88 bpm. 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
[2022-04-01 11:40] VITALS: BP 126/81; TEMP 98.6; O2SAT 93
--- NOTE | 2022-04-01 11:45 | Discharge Summary ---
Date of Service April 01, 2022 Admission HPI Per Admitting Provider Mr. Cuello is a 76-year-old male with a past medical history significant for prostate cancer status postradiation treatment completed in January, as well as diabetes diagnosed this past fall on metformin who presents today with 45 minutes of transient confusion at home. He and his had gone to [employer] this morning and came home and engaged in sexual activity. Immediately following this, he had complete memory loss of the previous day and this morning. He could not recall things he had done at work yesterday, or that they had been at [employer] already. He was alert to himself, place, recognized , but had to show him a receipt from a transaction that occurred yesterday for him to believe today's date. He apparently had done some important things regarding his work yesterday and was insisting he had to complete these tasks today, though they had been done yesterday. During this event, he had no focal weakness, no numbness or tingling, speech deficits, difficulty swallowing, nausea, vomiting, dizziness, or balanc issues. 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 They came to the ED for further evaluation, however on the way his symptoms fully resolved. He now has some memory of his questioning him during the event, but does not actually recall any of this confusion. He is completely back to his baseline. This has never happened to him before. This month he will find out if he is in remission from his prostate cancer, there is no known metastatic disease to brain, has not had any headaches, visual changes, or other neurological deficits. Had been in his previous state of health until this morning, no fever/chills, neck stiffness, weakness, myalgias, anorexia, night sweats, dizziness, chest pain, palpitations, shortness of breath, abdominal pain, or with urinary symptoms. In ED, he is hypertensive, all other vital signs within normal limits and stable. Labs largely unremarkable, glucose is 105. Troponin 4.3. No electrolyte abnormalities. TSH 7.54, free T4 0.67. UA unremarkable. COVID- negative. Head CT, head and neck CTA all unremarkable for acute process, chest x-ray showed no acute cardiopulmonary disease. Hospitalist service was consulted for further evaluation and admission. Patient was initially hesitant to stay, however ultimately decided to stay overnight for neurology consult. Admission Exam Per Admitting Provider Constitutional: No fever/chills, weakness, fatigue, myalgias, anorexia, night sweats Eyes: No diplopia, no worsening or blurred vision ENT: normal hearing, no trouble swallowing Respiratory: No cough, sputum, dyspnea at rest or on exertion Cardiovascular: No chest pain, tightness or palpitations Abdomen: No pain, nausea, vomiting, diarrhea or constipation : Denies dysuria, hematuria, increased urgency/frequency, urinary retention Musculoskeletal: No joint pain, calf pain, swelling Neurologic: No weakness, numbness/tingling, or balance problems Psychiatric: No anxiety or depression Skin: No rash or itc Principal Diagnosis Transient Global Amnesia Discharge Exam General: WN/WD male sitting up in chair, NAD HEENT: head normocephalic, atraumatic, mmm, trachea midline without deviation, EOMI, visual davila by confrontation without abnormality Resp: CTAB, no w/c/r on room air CV: RRR, no m/r/g, no calf edema or tenderness, cap refill wnl GI: +BS, soft, non-tender MSK/Neuro: moves all extremities, no focal deficit, no pronator drift, strength full and equal bilaterally, no balance issues, normal finger-finger, finger-nose Skin: warm, dry, no rash or obvious lesions Psych: AOX3 Discharge Data Allergies Allergy/AdvReac Type Severity Reaction Status Date / Time finasteride AdvReac Breast Verified 03/31/22 15:29 tenderness Consultations 03/31/22 16:38 ED Decision to Admit Stat 03/31/22 20:33 Consult Neurology Routine Ordered Studies Chest X-Ray 03/31/22 13:05 SINGLE VIEW CHEST CLINICAL HISTORY: Change in mental status. FINDINGS: An AP, portable, upright chest radiograph is obtained. No prior studies are available for comparison at the time of dictation. The heart is top normal for projection noting atherosclerotic calcification of the thoracic aorta. There is bibasilar scarring/atelectasis. The lungs and pleural spaces are otherwise clear. No pneumothorax is seen. The skeletal structures are osteopenic. The bony thorax is grossly intact. IMPRESSION: No active disease in the chest. ACT 112: Negative or not required by law. Electronically signed by: Andrew Thomason M.D. 03/31/2022 2:[address] 03/31/22 14:[address] OF THE BRAIN; CT ANGIOGRAM OF THE BRAIN; CT ANGIOGRAM OF THE NECK CLINICAL HISTORY: Strokelike symptoms. Global amnesia. COMPARISON STUDY: No priors. TECHNIQUE: Unenhanced axial CT scan of the brain is performed. Subsequently, following the IV administration of 120 of Optiray 320, CT angiogram of the head and neck was performed from the aortic arch to the vertex. Images are reviewed in the axial, sagittal, and coronal planes. 3-D MIPS images are created and assessed. IV contrast was administered without complication. All measurements were calculated based on NASCET criteria. A dose lowering technique was utilized adhering to the principles of ALARA. CT DOSE: 1107.58 mGy.cm FINDINGS: Brain parenchyma: There is age-related involutional change noting minimal subcortical and periventricular microangiopathic disease. There is no hemorrhage, mass effect, or evidence of acute territorial ischemia by CT criteria. There is no evidence of enhancing mass lesion on the angiogram phase images. The ventricles, sulci, and cisterns are prominent secondary to involutional change. Bowers-white matter differentiation is preserved. No extra-ax ial fluid collection is seen. Thoracic aorta: There is atherosclerotic calcification of the thoracic aorta. Visualized portions of the thoracic aorta are normal in caliber. The aortic arch demonstrates standard 3-vessel anatomy. Right carotid arterial system: The right common carotid artery is widely patent, as are the right internal and external carotid arteries. Calcified plaque is seen in the carotid bulb. Left carotid arterial system: The left common carotid artery is widely patent, as are the left internal and external carotid arteries. Calcified plaque is noted in the carotid bulb. Vertebral arteries: The vertebral arteries are widely patent bilaterally. The left vertebral artery is dominant. Subclavian arteries: Widely patent bilaterally. Intracranial vasculature: The internal carotid arteries are patent at the skull base, as are the anterior and middle cerebral arteries bilaterally. The vertebrobasilar system and posterior cerebral arteries are widely patent. The le ft vertebral artery is dominant. The intracranial right vertebral artery is diminutive. There is no aneurysm, high-grade stenosis, or focal vessel cut off seen throughout the intracranial circulation. Jugular veins: Patent bilaterally. Dural sinuses: Patent. Lung apices: Partially visualized upper lobe lung parenchyma appears clear. Soft tissues: The visualized pharyngeal soft tissues are normal in appearance noting angiographic phase technique. The oropharyngeal airway appears widely patent. The salivary and thyroid glands are normal in appearance. No cervical lymphadenopathy is seen. Skeletal structures: The skeletal structures are osteopenic. The calvarium appears intact. The cervical spine is maintained noting mild multilevel spondylosis. No lytic or blastic lesion is seen. Orbits: The bony orbits are intact. Orbital contents are normal as visualized. Sinuses and mastoids: There is mild mucosal thickening within the left maxillary antrum. Trace mucosal thickening is noted in the ethmoid sinuses. The remaining Paranasal sinuses are clear. The mastoid air cells are well pneumatized. IMPRESSION: 1. There is no hemorrhage, mass effect, or evidence of acute territorial ischemia by CT criteria. 2. Unremarkable CT angiogram of the brain. 3. Unremarkable CT angiogram of the neck. ACT 112: Negative or not required by law. Electronically signed by: Andrew Thomason M.D. 03/31/2022 3:34 PM Head CTA 03/31/22 14:[address] OF THE BRAIN; CT ANGIOGRAM OF THE BRAIN; CT ANGIOGRAM OF THE NECK CLINICAL HISTORY: Strokelike symptoms. Global amnesia. COMPARISON STUDY: No priors. TECHNIQUE: Unenhanced axial CT scan of the brain is performed. Subsequently, following the IV administration of 120 of Optiray 320, CT angiogram of the head and neck was performed from the aortic arch to the vertex. Images are reviewed in the axial, sagittal, and coronal planes. 3-D MIPS images are created and assessed. IV contrast was administered without complication. All measurements were calculated based on NASCET criteria. A dose lowering technique was utilized adhering to the principles of ALARA. CT DOSE: 1107.58 mGy.cm FINDINGS: Brain parenchyma: There is age-related involutional change noting minimal subcortical and periventricular microangiopathic disease. There is no hemorrhage, mass effect, or evidence of acute territorial ischemia by CT criteria. There is no evidence of enhancing mass lesion on the angiogram phase images. The ventricles, sulci, and cisterns are prominent secondary to involutional change. Bowers-white matter differentiation is preserved. No extra- axial fluid collection is seen. Thoracic aorta: There is atherosclerotic calcification of the thoracic aorta. Visualized portions of the thoracic aorta are normal in caliber. The aortic arch demonstrates standard 3-vessel anatomy. Right carotid arterial system: The right common carotid artery is widely patent, as are the right internal and external carotid arteries. Calcified plaque is seen in the carotid bulb. Left carotid arterial system: The left common carotid artery is widely patent, as are the left internal and external carotid arteries. Calcified plaque is noted in the carotid bulb. Vertebral arteries: The vertebral arteries are widely patent bilaterally. The left vertebral artery is dominant. Subclavian arteries: Widely patent bilaterally. Intracranial vasculature: The internal carotid arteries are patent at the skull base, as are the anterior and middle cerebral arteries bilaterally. The vertebrobasilar system and posterior cerebral arteries are widely patent. The left vertebral artery is dominant. The intracranial right vertebral artery is diminutive. There is no aneurysm, high-grade stenosis, or focal vessel cut off seen throughout the intracranial circulation. Jugular veins: Patent bilaterally. Dural sinuses: Patent. Lung apices: Partially visualized upper lobe lung parenchyma appears clear. Soft tissues: The visualized pharyngeal soft tissues are normal in appearance noting angiographic phase technique. The oropharyngeal airway appears widely patent. The salivary and thyroid glands are normal in appearance. No cervical lymphadenopathy is seen. Skeletal structures: The skeletal structures are osteopenic. The calvarium appears intact. The cervical spine is maintained noting mild multilevel spondylosis. No lytic or blastic lesion is seen. Orbits: The bony orbits are intact. Orbital contents are normal as visualized. Sinuses and mastoids: There is mild mucosal thickening within the left maxillary antrum. Trace mucosal thickening is noted in the ethmoid sinuses. The remaining Paranasal sinuses are clear. The mastoid air cells are well pneumatized. IMPRESSION: 1. There is no hemorrhage, mass effect, or evidence of acute territorial ischemia by CT criteria. 2. Unremarkable CT angiogram of the brain. 3. Unremarkable CT angiogram of the neck. ACT 112: Negative or not required by law. Electronically signed by: Andrew Thomason M.D. 03/31/2022 3:34 PM Neck CTA 03/31/22 14:[address] OF THE BRAIN; CT ANGIOGRAM OF THE BRAIN; CT ANGIOGRAM OF THE NECK CLINICAL HISTORY: Strokelike symptoms. Global amnesia. COMPARISON STUDY: No priors. TECHNIQUE: Unenhanced axial CT scan of the brain is performed. Subsequently, f ollowing the IV administration of 120 of Optiray 320, CT angiogram of the head and neck was performed from the aortic arch to the vertex. Images are reviewed in the axial, sagittal, and coronal planes. 3-D MIPS images are created and assessed. IV contrast was administered without complication. All measurements were calculated based on NASCET criteria. A dose lowering technique was utilized adhering to the principles of ALARA. CT DOSE: 1107.58 mGy.cm FINDINGS: Brain parenchyma: There is age-related involutional change noting minimal subcortical and periventricular microangiopathic disease. There is no hemorrhage, mass effect, or evidence of acute territorial ischemia by CT criteria. There is no evidence of enhancing mass lesion on the angiogram phase images. The ventricles, sulci, and cisterns are prominent secondary to involutional change. Bowers-white matter differentiation is preserved. No extra- axial fluid collection is seen. Thoracic aorta: There is atherosclerotic calcification of the thoracic aorta. Visualized portions of the thoracic aorta are normal in caliber. The aortic arch demonstrates standard 3-vessel anatomy. Right carotid arterial system: The right common carotid artery is widely patent, as are the right internal and external carotid arteries. Calcified plaque is seen in the carotid bulb. Left carotid arterial system: The left common carotid artery is widely patent, as are the left internal and external carotid arteries. Calcified plaque is noted in the carotid bulb. Vertebral arteries: The vertebral arteries are widely patent bilaterally. The l eft vertebral artery is dominant. Subclavian arteries: Widely patent bilaterally. Intracranial vasculature: The internal carotid arteries are patent at the skull base, as are the anterior and middle cerebral arteries bilaterally. The vertebrobasilar system and posterior cerebral arteries are widely patent. The left vertebral artery is dominant. The intracranial right vertebral artery is diminutive. There is no aneurysm, high-grade stenosis, or focal vessel cut off seen throughout the intracranial circulation. Jugular veins: Patent bilaterally. Dural sinuses: Patent. Lung apices: Partially visualized upper lobe lung parenchyma appears clear. Soft tissues: The visualized pharyngeal soft tissues are normal in appearance noting angiographic phase technique. The oropharyngeal airway appears widely patent. The salivary and thyroid glands are normal in appearance. No cervical lymphadenopathy is seen. Skeletal structures: The skeletal structures are osteopenic. The calvarium appe ars intact. The cervical spine is maintained noting mild multilevel spondylosis. No lytic or blastic lesion is seen. Orbits: The bony orbits are intact. Orbital contents are normal as visualized. Sinuses and mastoids: There is mild mucosal thickening within the left maxillary antrum. Trace mucosal thickening is noted in the ethmoid sinuses. The remaining Paranasal sinuses are clear. The mastoid air cells are well pneumatized. IMPRESSION: 1. There is no hemorrhage, mass effect, or evidence of acute territorial ischemia by CT criteria. 2. Unremarkable CT angiogram of the brain. 3. Unremarkable CT angiogram of the neck. ACT 112: Negative or not required by law. Electronically signed by: Andrew Thomason M.D. 03/31/2022 3:34 PM Brain MRI 03/31/22 17:27 MRI OF THE BRAIN COMBO CLINICAL HISTORY: Global amnesia. COMPARISON STUDY: CT of the brain dated 03/31/2022. TECHNIQUE: MRI of the brain was performed utilizing various T1 and T2-weighted sequences in the axial, sagittal, and coronal planes. Contrast-enhanced sequences were acquired following the administration of 8 cc of Gadavist. FINDINGS: Brain parenchyma: There is age-related involutional change noting minimal microangiopathic disease. There is no hemorrhage or mass effect. There is no restricted diffusion to suggest acute ischemia. No enhancing mass lesion is identified on the postcontrast images. Bowers-white matter differentiation is preserved. No extra-axial fluid collection is seen. The cerebellar tonsils are normal in configuration. Ventricles, sulci, and cisterns: Prominent secondary to involutional change. Pituitary and sella: Unremarkable. Intracranial vasculature: Normal flow voids are maintained at the skull base. Orbits: The bony orbits are grossly intact. Orbital contents are normal in appearance. Sinuses and mastoids: There is trace mucosal thickening in the left frontal sinus, the left maxillary sinus, and the left ethmoid sinuses. Mastoid air cells are clear. Calvarium: Unremarkable. Cervical cord: Partially visualized cervical spinal cord is normal in morphology and signal intensity. IMPRESSION: No acute intracranial abnormality. ACT 112: Negative or not required by law. Electronically signed by: Andrew Thomason M.D. 03/31/2022 6:29 PM Hospital Course (1) Transient global amnesia: Occurring after mormonism, followed by sexual activity and 30-45 minutes of global amnesia forgetting the date and stating needed to take care of important business which had been done the day prior. Returned to baseline in ER but agreed to stay overnight for monitoring and evaluation by Neurology CT head, CTA head/neck and MRI brain all NEGATIVE ECHO without significant abnormality but did not eval for R-L shunt ASA 324mg in ER, continued 81mg ASA and sent rx at discharge Lipid panel acceptable. A1c 5.5 Neuro consulted -- no need for EEG or LP/CSF analysis at this time. "Agree with addition of daily low-dose aspirin at this point in time in the context of patient's type 2 diabetes mellitus. However, the underlying pathophysiology of transient global amnesia is not known but is not felt to be ischemic in etiology. No further immediate recommendations. Prognosis for transient global amnesia is quite good with low risk for recurrence of most individuals." Has been normal sinus on monitor,. no arrhythmia. -->Did have elevated TSH 7.5 on admission but normal FT4 and rec repeat labs with PCP outpatient in 4-6 weeks. PT eval -- ok to return home (2) Prostate cancer: s/p radiation treatment, will find out this month if he is in remission. MRI brain without any evidence of metastatic disease. Continued Flomax. (3) DM2 (diabetes mellitus, type 2): On metformin K 9 HANDLER/ DEPUTY A1c 5.5 BSGs acceptable while inpatient and can continue usual metformin at discharge (4) Elevated TSH: TSH 7.548, free T4 0.267. - Recommend follow-up with PCP for repeat testing 4-6 weeks (5) Elevated blood pressure reading without diagnosis of hypertension: Patient reports he has "white coat syndrome", does check blood pressure at home and systolic BP typically 120s. BPs 126/81 today -- continue routine monitoring at home/outpt follow up Total Time Total Time Spent Total Time Spent (In Minutes): 45 Discharge Plan Discharge Items Patient Disposition: Home - Self-Care Reason For Visit: TRANSIENT GLOBAL AMNESIA Discharge Diagnosis: Transient Global Amnesia Goals: You have been hospitalized for an acute medical problem. During your stay at [facility], we have made an effort to correct the problem that brought you to the hospital while keeping you as comfortable as possible. Medications were used to bring your condition under control and your discharge instructions will include directions for any medications you should take after leaving the hospital. Please make sure you see your Primary Care Provider as part of your follow up plan. Activity: Resume your previous activity Non-emergency contact: Primary Care Provider Call non-emergency contact if: you have any medication questions and your symptoms worsen Follow-up/Referrals: Scotty Mora [Primary Care Provider] - (PLEASE CALL YOUR PRIMARY CARE PROVIDER TO SCHEDULE A DISCHARGE FOLLOW-UP APPOINTMENT WITHIN 7-10 DAYS.) Diet: Carb Consistent or DM2 and Heart Healthy Addtl Attending Provider Instructions: You have been hospitalized for transient amnesia. This was concerning for possible stroke activity and imaging was obtained which was NEGATIVE for acute stroke. ECHO to evaluate your heart did not show any valvular abnormalities. You were evaluated by Neurology and felt back to baseline. You are recommended to start taking a baby aspirin 81mg daily for prevention in the future. Your thyroid hormone level was elevated however the "free T4" was normal, indicating no need for replacement at this time. You should have these labs drawn outpatient with your PCP in the next 4-6 weeks to ensure normalized and no need for supplementation/replacement in the future. Your cholesterol levels were good and your A1c was 5.5. You should follow up with your PCP in the next 7-10 days to monitor your progress. Please return to the ER with any recurrence of symptoms or for any other symptoms concerning for you. Take care! Pending Studies at Discharge: No Stand-Alone Forms: My [facility] i2we, Smoking Cessation Medications and DC Order Prescriptions: New aspirin 81 mg Tablet,Delayed Release (Dr/Ec) 81 mg PO QAM Qty: 31 RF: 3 Continued multivitamin Tablet 1 tab PO DAILY RF: 0 ascorbic acid (vitamin C) 500 mg capsule 500 mg PO DAILY RF: 0 cholecalciferol (vitamin D3) 125 mcg (5,000 unit) capsule 125 mcg PO DAILY RF: 0 calcium carbonate-vitamin D2 600 mg calcium- 200 unit tablet 1 tab PO DAILY RF: 0 metformin 500 mg tablet 500 mg PO BID RF: 0 Azo Men 500 mg capsule 500 mg PO DAILY RF: 0 tamsulosin 0.4 mg capsule 0.4 mg PO BIDWMEAL Qty: 60 RF: 6 royal jelly 500 mg Capsule 500 mg PO TIDWMEAL RF: 0 Discharge Orders: Discharge Order (Routine); Ordered 04/01/22 Ordered By: Brittany Cali Admission Data Admit Date/Time: 03/31/22 16:39 Attending Provider: Herb Rodriguez Admit Provider: Agustin Handley Primary Care Provider: Scotty Mora Other Providers: Agustin Handley ; Kevin Fuentes Other Interventions: Discharge Summary Assessment (RN) Last Done: 04/01/22 12:06 Coding Level of Care Code 05975 OBS Care - Discharge Diagnoses Transient global amnesia G45.4 Prostate cancer C61 DM2 (diabetes mellitus, type 2) E11.9 Elevated TSH R79.89 Elevated blood pressure reading without diagnosis of hypertension R03.0
[2022-04-01 12:08] VITALS: PULSE 112
== END 2022-04-01 14:34 | disposition home or self-care (01) ==
LOC: ED 12:47 → 2N 12:47 → SUATTDRO 16:39 → 2N 18:25

== ENCOUNTER 2023-01-29 20:21 | Inpatient (IN) ==
--- NOTE | 2023-01-29 21:21 | Surgery Consultation ---
Date of Consultation January 29, 2023 Assessment & Plan (1) Acute cholecystitis: Patient has been accepted in transfer on the hospitalist service. We recommend proceeding as follows: Provide analgesics Provide antiemetics Follow serial labs Provide IV fluid for hydration Provide broad-spectrum antibiotics. Zosyn has been ordered. Would recommend implementing n.p.o. status Due to findings of acute cholecystitis the patient would likely benefit from a cholecystectomy Due to the findings of dilated common bile duct and elevated liver function test this raises the concern of choledocholithiasis and therefore would recommend obtaining a GI consultation. Based on these results it appears that the patient may benefit from an ERCP prior to undergoing cholecystectomy. We will await gastroenterology recommendations and then determine the best timing of any procedural interventions the patient will undergo. Additional recommendations will be forthcoming based on his clinical course as unfolds as well as recommendations from gastroenterology Supervising Physician Co-Signing Physician Notes Patient seen and examined, agree with above. Transferred from [facility] for cholecystitis and likely choledocholithiasis. His bilirubin and LFTs are downtrending this morning. GI seen and is planning on ERCP later today. We will attempt to perform a laparoscopic cholecystectomy at the same time. History of Present Illness Reason for Consultation: Cholelithiasis and choledocholithiasis Attending Physician: Tobi Guallpa History of Present Illness This is a 77-year-old male who was seen at [facility] secondary to abdominal pain that has been going on for approximately 3 to 4 days. Patient notes that the pain is located in the right upper quadrant without radiation. He notes that the pain is improved with medicines that were administered in the emergency department but denies any provocative factors. He has had some fever as well as chills. In addition he has had nausea and vomiting. I asked him if he has been having postprandial pain over the past several weeks which he denies. The patient notes that he has had an umbilical hernia repair and is also had a left inguinal hernia repair. He is unsure if they have utilize any mesh. While at [facility] the patient had labs and imaging. Reports were available on papers that were sent with the patient on transfer. Chemistry profile showed sodium and potassium were normal as well as his BUN and creatinine. His total bilirubin was elevated at 4.3 his AST and ALT were elevated at 74 and 192 respectively. Alkaline phosphatase was elevated at 135. His lipase was nonelevated at 44. His lactic acid level was slightly elevated at 2.2. A gallbladder ultrasound performed showed the patient had pericholecystic stranding with a thickened gallbladder wall and enlarged common bile duct. These findings were concerning for acute cholecystitis. Due to the findings on patient's labs and imaging was felt the patient required a gastroenterology evaluation for potential ERCP. Transfer to [facility] was therefore requested and surgical evaluation was requested as well due to potential need for cholecystectomy. At the time of my interview he was resting comfortably in bed and he was in no distress. Allergies Allergy/AdvReac Type Severity Reaction Status Date / Time finasteride AdvReac Breast Verified 03/31/22 15:29 tenderness Home Medications Medication Instructions Recorded Confirmed Type ascorbic acid (vitamin C) 500 mg 500 mg PO DAILY 10/16/21 01/29/23 History capsule calcium carb-ergocalciferol (vit 1 tab PO DAILY 10/16/21 01/29/23 History D2) 600 mg calcium-200 unit tablet multivitamin 1 tab PO DAILY 10/16/21 01/29/23 History royal jelly 500 mg capsule 500 mg PO TIDWMEAL 03/31/22 01/29/23 History cholecalciferol (vitamin D3) 125 125 mcg PO DAILY 10/17/22 01/29/23 History mcg (5,000 unit) capsule vinia 400 mg PO DAILY 10/17/22 01/29/23 History tamsulosin 0.4 mg capsule 0.4 mg PO DAILY Frequency 11/15/22 01/29/23 History aspirin 81 mg chewable tablet 81 mg PO Q OTHER DAY 01/29/23 01/29/23 History empagliflozin 10 mg tablet 10 mg PO DAILY 01/29/23 01/29/23 History (Jardiance) Patient History Medical History Elevated blood pressure reading without diagnosis of hypertension Osteoarthritis Prostate cancer (09/07/21) Sleep apnea Surgical History H/O left inguinal hernia repair H/O umbilical hernia repair Family History Mother , in her 90s Natural with unknown cause Father , 93yo No problems noted. Brother Family history unknown Brother Family history unknown Brother Suicide Sister Family history unknown Sister Family history unknown Son No problems noted. Daughter No problems noted. Social History Smoking Status: Former smoker Second Hand Exposure: No; Hx Alcohol Use: No Hx Substance Use: No Preferred Language: Botswanan Communication Ability: Effective Visual Impairment: No Limitations Hearing Ability: Normal Manager Labor Relations Required: No Beliefs That Will Affect Care: None marital status: Current Living Situation: Spouse current occupational status: employed current occupation: Owns [employer] Other Information That Helps Us Care for You: No Feels Safe at Home: Yes Safety Concerns: Feels Safe At This Time caffeine: Yes (1 cup/day) during the past year weight has: remained stable Assistive Devices: Glasses Review of Systems Constitutional: + fever and + chills Eyes: no eye pain Ear, Nose, Mouth, Throat: no ear pain Respiratory: no cough and no dyspnea Cardiovascular: no chest pain Gastrointestinal: as per Subjective / HPI Genitourinary: no dysuria Musculoskeletal: no back pain Integumentary: no rash Neurologic: no localized weakness Physical Exam Constitutional: WD/WN, vitals as above Eyes: + anicteric sclerae ENMT: Ears: no hearing impairment and no external ear abnormality No sublingual l jaundice noted Neck: trachea midline Respiratory: normal respiratory effort; no respiratory distress and no labored breathing Cardiovascular: Rate/Rhythm: regular rate and regular rhythm Vessels: dorsalis pedis pulses present and radial pulses present Gastrointestinal (Abdomen): Abdomen is soft and nonrigid. There is some guarding in the right upper quadrant and patient has significant pain with palpation in the right upper quadrant. Arboleda sign is positive. No rebound tenderness is noted. Musculoskeletal: No calf tenderness Skin: no rashes Neurologic: moves all extremities Psychiatric: A+Ox3, euthymic affect Results & Data ([facility]) Vital Signs (Past 12 Hours) Vital Signs Temp Pulse Resp BP Pulse Ox O2 Del Method 01/29/23 20:43 Room Air 01/29/23 20:43 37.6 C H 111 H 19 127/79 92 Room Air 01/29/23 20:41 37.6 C H 111 H 18 127/79 92 Room Air PG Care Time/CCT Total # of Minutes Spent Total Time Spent with Patient: Total time spent is greater than 50% in coordination of care (as documented) at patient's floor/unit and/or counseling patient: Coding Level of Care Code 96151 INT INP/OBS CARE MIN Diagnoses Acute cholecystitis K81.0
[2023-01-29] MEDS ORDERED: DEXTROSE 50% 50 ML SYRINGE IV PRN (22:36)
[2023-01-29] MEDS ORDERED: CARBOHYDRATES FOR HYPOGLYCEMIA PO PRN (22:36)
[2023-01-29] MEDS ORDERED: GLUCAGON FOR INJ 1 MG VIAL SQ PRN (22:36)
[2023-01-29] MEDS ORDERED: GLUCOSE 10 TAB/TUBE PO PRN (22:36)
[2023-01-29] MEDS ORDERED: GLUCOSE 40% GEL 15 GM TUBE PO PRN (22:36)
--- NOTE | 2023-01-29 22:43 | History & Physical Report ---
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 Patient did receive ceftriaxone 1 g IV and Flagyl 500 mg IV prior to transfer Zosyn 4.5 g IV every 8 hours Zofran 4 mg IV every 6 hours as needed NSS + KCl 20 mEq at 80 mils per hour Famotidine 20 mg IV every 12 hours Toradol 15 mg IV every 6 hours as needed mild pain or fever Morphine sulfate 2 mg IV every 4 hours as needed moderate pain Dilaudid 0.25 mg IV every 4 hours as needed severe pain Avoiding acetaminophen due to abnormal LFTs: Total bilirubin 4.3, AST 74, ALT 192, alkaline phosphatase 135, total protein 8.3 and albumin 3.6. Lipase was normal at 44 Diabetes mellitus- Hold Jardiance Placed on Accu-Cheks with NovoLog coverage per SSI Prostate cancer history- No problems with urine output noted Admission and Anticipated Discharge Date Admission Date: January 29, 2023 History of Present Illness Chief Complaint: The patient presented to the emergency department at [facility] earlier in the day today due to complaints regarding abdominal pain, nausea, vomiting and fever that begun 2 days previously. Primary Care Provider: Scotty Mora The patient is a 77-year-old male with a past medical history including prostate cancer, diabetes mellitus type 2, and transient global amnesia. He was seen at [facility] emergency department earlier in the day today, due to his complaint of abdominal pain, nausea, vomiting and fever that began 2 days previously. Work-up the emergency department included the following studies: Ultrasound of abdomen limited to right upper quadrant showed findings consistent with acute cholecystitis with large gallbladder wall, mild pericholecystic stranding and positive sonographic Arboleda sign. There was an mildly enlarged, bile duct and intrahepatic bile ducts, without ability to exclude choledocholithiasis. Significant laboratories: WBC 13.8, hemoglobin 17.5, hematocrit 50.7, glucose 136 and lactate 2.4. It was felt the patient would need an ERCP prior to getting a cholecystectomy, and patient was referred to [facility] for further assessment and treatment. He did receive ceftriaxone 1 g IV and Flagyl 500 mg IV at [facility] prior to transfer. He reports that his last food that he attempted to eat was yesterday morning, which he threw up. Allergies Allergy/AdvReac Type Severity Reaction Status Date / Time finasteride AdvReac Breast Verified 03/31/22 15:29 tenderness Home Medications Medication Instructions Recorded Confirmed Type ascorbic acid (vitamin C) 500 mg 500 mg PO DAILY 10/16/21 01/29/23 History capsule calcium carb-ergocalciferol (vit 1 tab PO DAILY 10/16/21 01/29/23 History D2) 600 mg calcium-200 unit tablet multivitamin 1 tab PO DAILY 10/16/21 01/29/23 History royal jelly 500 mg capsule 500 mg PO TIDWMEAL 03/31/22 01/29/23 History cholecalciferol (vitamin D3) 125 125 mcg PO DAILY 10/17/22 01/29/23 History mcg (5,000 unit) capsule vinia 400 mg PO DAILY 10/17/22 01/29/23 History tamsulosin 0.4 mg capsule 0.4 mg PO DAILY Frequency 11/15/22 01/29/23 History aspirin 81 mg chewable tablet 81 mg PO Q OTHER DAY 01/29/23 01/29/23 History empagliflozin 10 mg tablet 10 mg PO DAILY 01/29/23 01/29/23 History (Jardiance) Past Med/Surg History Medical History Elevated blood pressure reading without diagnosis of hypertension Osteoarthritis Prostate cancer (09/07/21) Sleep apnea Surgical History H/O left inguinal hernia repair H/O umbilical hernia repair Family History Mother , in her 90s Natural with unknown cause Father , 93yo No problems noted. Brother Family history unknown Brother Family history unknown Brother Suicide Sister Family history unknown Sister Family history unknown Son No problems noted. Daughter No problems noted. Social History Smoking Status: Former smoker Second Hand Exposure: No; Hx Alcohol Use: No Hx Substance Use: No Preferred Language: Tajik Communication Ability: Effective Visual Impairment: No Limitations Hearing Ability: Normal Vegetable Grader Required: No Beliefs That Will Affect Care: None marital status: Current Living Situation: Spouse current occupational status: employed current occupation: Owns [employer] Other Information That Helps Us Care for You: No Feels Safe at Home: Yes Safety Concerns: Feels Safe At This Time caffeine: Yes (1 cup/day) during the past year weight has: remained stable Assistive Devices: Glasses Review of Systems Review of Systems: The patient denies chest pain, palpitations, shortness of breath, dyspnea on exertion, cough, lower extremity swelling, sore throat, blood in urine or stool, dysuria, urinary frequency or urgency, lightheadedness, dizziness, headache, memory loss, loss of consciousness, rash, abnormal bruising or bleeding, imbalance, focal or generalized weakness, numbness or tingling in arms or legs, generalized arthralgias or myalgias, neck pain, or night sweats. The review of systems is otherwise negative other than for that already noted above, and at least 10 systems have been reviewed. Physical Exam Physical Exam: The patient is awake, alert and oriented 3, well developed and well nourished, normocephalic and atraumatic, lying in bed and in no acute distress. HEENT--PERRL, EOMI, mucous membranes and oropharynx mildly dry. Neck--supple. No JVD. No bruits. Thyroid normal, trachea midline, no adenopathy. Heart--normal S1 and S2. No murmurs, rubs or gallops. Lungs--clear bilaterally, no respiratory distress, no accessory muscle use. Abdomen--normal bowel sounds and soft. Mild tenderness right upper quadrant. Nondistended Extremities--no cyanosis or clubbing. No edema. Dermatologic--normal skin turgor, normal color, no abnormal lymph nodes, no rash. Neurologic--cranial nerves II through XII grossly intact. Rheumatologic--normal range of motion. Psychiatric--normal affect. Results & Data Results & Data ([facility]) Vital Signs (Past 12 Hours) Vital Signs Temp Pulse Resp BP Pulse Ox O2 Del Method 01/29/23 20:43 Room Air 01/29/23 20:43 37.6 C H 111 H 19 127/79 92 Room Air 01/29/23 20:41 37.6 C H 111 H 18 127/79 92 Room Air Code Status & VTE Plan Code Status Full code VTE Prophylaxis Plan VTE Prophylaxis will be ordered: Yes PG Care Time/CCT Total # of Minutes Spent Total Time Spent with Patient: Total time spent is greater than 50% in coordination of care (as documented) at patient's floor/unit and/or counseling patient: Coding Level of Care Code 49884 INT INP/OBS CARE 2/55MIN Diagnoses Acute cholecystitis K81.0 Transient global amnesia G45.4 DM2 (diabetes mellitus, type 2) E11.9 Prostate cancer C61
[2023-01-29] MEDS ORDERED: HYDROmorphone INJ 0.5 MG/0.5 ML SYR IV PRN (23:14)
[2023-01-29] MEDS ORDERED: KETOROLAC TROMETHAMINE 15 MG/ML VIAL IV PRN (23:14)
[2023-01-29] MEDS ORDERED: PIPERACILLIN/TAZOBACTAM 4.5 GM (over 30 mins) IV ONE (23:30)
[2023-01-29] MEDS: NSS + 20MEQ KCL 20 MEQ/1,000 ML BAG IV SCH (23:44)
[2023-01-30] MEDS: PIPERACILLIN/TAZOBACTAM 4.5 GM in DEXTROSE 5% 100 ML IV SCH ×2 (05:37→13:29)
[2023-01-30 06:42] LABS: Basophils # (auto) 0.02 K/uL (0-0.2); Basophils % (auto) 0.2 %; Hematocrit (blood only) 44.7 % (42.0-52.0); Hemoglobin 15.2 g/dl (14.0-18.0); Immature Granulocytes # (auto) 0.07 K/uL (0.01-0.20); Immature Granulocytes % (auto) 0.6 %; Lymphocytes % (auto) 4.1 %; Mean Corpuscular Hemoglobin 30.6 pg (25.0-34.0); Mean Corpuscular Volume 90.1 fL (80.0-100.0); Mean Platelet Volume 9.7 fL (9.4-12.4); Monocytes # (auto) 0.71 K/uL (0.11-0.59); Monocytes % (auto) 5.9 %; Neutrophils % (auto) 89.2 %; Platelet Count 150 K/uL (130-400); RDW Coefficient of Variation 12.3 % (11.5-14.5); RDW Standard Deviation 40.8 fL (36.4-46.3); Red Blood Count 4.96 M/uL (4.70-6.10)
[2023-01-30 06:54] LABS: Albumin Globulin Ratio 1.2 (0.9-2); Albumin Level 3.6 gm/dl (3.4-5.0); BUN Creatinine Ratio 35.2 (10-20); Bilirubin,Total 2.2 mg/dl (0.2-1.0); Calcium 9.1 mg/dl (8.5-10.1); Creatinine Clr Calc Pharmacy 66.8 ml/min; Est GFR (African American) 94.5 ml/min; Est GFR (Non-African American) 81.6 ml/min; Magnesium 2.3 mg/dl (1.7-2.4); Potassium 3.8 mmol/L (3.5-5.1); Total Protein 6.6 gm/dl (6.0-8.3)
[2023-01-30 07:30] LABS: INR 1.1 (0.9-1.1); Partial Thromboplastin Ratio 1.2; Partial Thromboplastin Time 32.6 Seconds (21.0-31.0); Prothrombin Time 11.9 Seconds (9.0-12.0)
[2023-01-30] MEDS: INSULIN ASPART PER UNIT SC SCH ×4 (08:09→21:07)
[2023-01-30] MEDS: ONDANSETRON INJ 2 MG/ML 2 ML VIAL IV PRN (08:17)
[2023-01-30] MEDS ORDERED: FAMOTIDINE 20 MG in SYRINGE 3 ML IV SCH (09:00)
--- NOTE | 2023-01-30 09:37 | Hospitalist Progress Note ---
Date of Service January 30, 2023 Assessment & Plan (1) Acute cholecystitis: Plan: Clinical concerns for acute cholecystitis significant rest the patient. Patient with sludge and gallbladder thickening on ultrasound. ERCP performed 01/30/[address] Anaya is pending results for consideration of laparoscopic cholecystectomy patient continues on antibiotics of Zosyn therapy (2) DM2 (diabetes mellitus, type 2): Plan: Diabetes mellitus- Hold Jardiance Placed on Accu-Cheks with NovoLog coverage per SSI (3) Prostate cancer: Plan: no luts, no treatment Admission and Anticipated Discharge Date Admission Date: January 29, 2023 Subjective pt went to endoscopy 01/30/23 Results & Data Results & Data ([facility]) Vital Signs (Past 12 Hours) Vital Signs Temp Pulse Pulse Resp BP Pulse Ox O2 Del Method 01/30/23 07:50 103 H 01/30/23 07:44 99.7 F H 110 H 18 139/77 94 Room Air 01/30/23 03:36 99.0 F 108 H 20 146/78 H 92 Room Air 01/29/23 23:21 99.5 F 104 H 20 145/76 H 95 Room Air PG Care Time/CCT Total # of Minutes Spent Total Time Spent with Patient: Total time spent is greater than 50% in coordination of care (as documented) at patient's floor/unit and/or counseling patient: Coding Level of Care Code 80022 SUB INP/OBS CARE 2/35MIN Diagnoses Acute cholecystitis K81.0 DM2 (diabetes mellitus, type 2) E11.9 Prostate cancer C61
--- NOTE | 2023-01-30 09:40 | Gastrointestinal Consultation ---
Date of Consultation January 30, 2023 Assessment & Plan (1) Acute cholecystitis: 77 year old male transferred from OSH for abd pain, nausea/vomiting and intermittent fevers since Friday, ABD US at OSH with report of acute cholecystitis and biliary dilation. Tbili was reported at 4 at OSH, this AM Tbili 2.2 AST 25, ALT 85, ALKP 86 NPO ERCP today (given reprt of improving Tbili on AM labs will potential to add on EUS) Appreciate general surgery management and timing of CCY Analgesia PRN Antiemetics PRN Can continue ABX Thank you for allowing us to participate in the care of this patient. Please call with any acute changes, questions or concerns. Please see addendum below with additional recommendation from my supervising physician. Supervising Physician Co-Signing Physician Notes Attg add: I interviewed and examined pt, reviewed chart and labs. Pt with abd pain, n/v now with bili 4--2 CBD 12, uls with cholecystitis. Plan for ERCO History of Present Illness Reason for Consultation: ERCP request Requesting Physician: Jana Attending Physician: Kedar Bates MD History of Present Illness 77 year old male with history of T2DM, global amnesia, prostate CA transferred from [facility] to [facility] for ERCP evaluation. GI was asked to evaluate. He notes that he developed severe upper abd pain, nausea/vomiting and fevers intermittent on Friday. Symptoms were persistent, unchanged so sought ED care. Per chart review, in the ED he was noted to have elevated WBC, elevated LFTS w/ TBili 4 and had an US that showed acute cholecystitis with large gallbladder wall, mild pericholecystic stranding and positive sonographic Arboleda sign, mild biliary dilation enlarged CBD and intrahepatic bile ducts, without ability to exclude choledocholithiasis. He is on ASA but notes he does not take this daily Denies any blood thinners Denies any previous abdominal surgical history, specifically denies RYGB. Allergies Allergy/AdvReac Type Severity Reaction Status Date / Time finasteride AdvReac Breast Verified 03/31/22 15:29 tenderness Home Medications Medication Instructions Recorded Confirmed Type ascorbic acid (vitamin C) 500 mg 500 mg PO DAILY 10/16/21 01/29/23 History capsule calcium carb-ergocalciferol (vit 1 tab PO DAILY 10/16/21 01/29/23 History D2) 600 mg calcium-200 unit tablet multivitamin 1 tab PO DAILY 10/16/21 01/29/23 History royal jelly 500 mg capsule 500 mg PO TIDWMEAL 03/31/22 01/29/23 History cholecalciferol (vitamin D3) 125 125 mcg PO DAILY 10/17/22 01/29/23 History mcg (5,000 unit) capsule vinia 400 mg PO DAILY 10/17/22 01/29/23 History tamsulosin 0.4 mg capsule 0.4 mg PO DAILY Frequency 11/15/22 01/29/23 History aspirin 81 mg chewable tablet 81 mg PO Q OTHER DAY 01/29/23 01/29/23 History empagliflozin 10 mg tablet 10 mg PO DAILY 01/29/23 01/29/23 History (Jardiance) Patient History Medical History Elevated blood pressure reading without diagnosis of hypertension Osteoarthritis Prostate cancer (09/07/21) Sleep apnea Surgical History H/O left inguinal hernia repair H/O umbilical hernia repair Family History Mother , in her 90s Natural with unknown cause Father , 93yo No problems noted. Brother Family history unknown Brother Family history unknown Brother Suicide Sister Family history unknown Sister Family history unknown Son No problems noted. Daughter No problems noted. Social History Smoking Status: Former smoker Second Hand Exposure: No; Hx Alcohol Use: No Hx Substance Use: No Preferred Language: Bahraini Communication Ability: Effective Visual Impairment: No Limitations Hearing Ability: Normal Painting Department Supervisor Required: No Beliefs That Will Affect Care: None marital status: Current Living Situation: Spouse current occupational status: employed current occupation: Owns [employer] Other Information That Helps Us Care for You: No Feels Safe at Home: Yes Safety Concerns: Feels Safe At This Time caffeine: Yes (1 cup/day) during the past year weight has: remained stable Assistive Devices: Glasses Review of Systems Review of Systems: All systems reviewed & are unremarkable except as noted in HPI & below Physical Exam Constitutional: WD/WN, vitals as above Respiratory: normal respiratory effort, lungs clear to auscultation Cardiovascular: Rate/Rhythm: regular rate Gastrointestinal (Abdomen): Percussion/Palpation: + abdomen tender and abdomen soft; no guarding and abdomen not rigid Skin: no rashes, warm and dry Results & Data ([facility]) Vital Signs (Past 12 Hours) Vital Signs Temp Pulse Pulse Resp BP Pulse Ox O2 Del Method 01/30/23 07:50 103 H 01/30/23 07:44 37.6 C H 110 H 18 139/77 94 Room Air 01/30/23 03:36 37.2 C 108 H 20 146/78 H 92 Room Air 01/29/23 23:21 37.5 C 104 H 20 145/76 H 95 Room Air Laboratory Results 01/30/23 01/30/23 01/30/23 Range/Units 08:01 05:37 05:37 WBC (4.8-10.8) K/ul RBC (4.70-6.10) M/uL Hgb (14.0-18.0) g/dl Hct (42.0-52.0) % MCV (80.0-100.0) fL MCH (25.0-34.0) pg MCHC (32.0-36.0) g/dL RDW Std Deviation (36.4-46.3) fL RDW Coeff of Anita (11.5-14.5) % Plt Count (130-400) K/uL MPV (9.4-12.4) fL Immature Gran % (Auto) % Neut % (Auto) % Lymph % (Auto) % [place] % (Auto) % Eos % (Auto) % Baso % (Auto) % Neut # (Auto) (1.40-6.50) K/uL Lymph # (Auto) (1.2-3.4) K/uL Boone # (Auto) (0.11-0.59) K/uL Eos # (Auto) (0-0.50) K/uL Baso # (Auto) (0-0.2) K/uL Immature Gran # (Auto) (0.01-0.20) K/uL PT 11.9 (9.0-12.0) Seconds INR 1.1 (0.9-1.1) APTT 32.6 H (21.0-31.0) Seconds PTT Ratio 1.2 Sodium 139 (136-145) mmol/L Potassium 3.8 (3.5-5.1) mmol/L Chloride 108 H (98-107) mmol/L Carbon Dioxide 24 (21-32) mmol/L Anion Gap 7 (3-11) BUN 32 H (6-23) mg/dl Creatinine 0.91 (0.6-1.4) mg/dl Est Cr Clr Drug Dosing 66.8 ml/min Est GFR ( Amer) 94.5 ml/min Est GFR (Non-Af Amer) 81.6 ml/min BUN/Creatinine Ratio 35.2 H (10-20) Glucose 113 H (70-99(Fasting)) mg/dl POC Glucose 115 H (70-99) mg/dl Calcium 9.1 (8.5-10.1) mg/dl Magnesium 2.3 (1.7-2.4) mg/dl Total Bilirubin 2.2 H (0.2-1.0) mg/dl AST 25 (13-39) U/L ALT 85 H (7-52) U/L Alkaline Phosphatase 86 (34-104) U/L Total Protein 6.6 (6.0-8.3) gm/dl Albumin 3.6 (3.4-5.0) gm/dl Globulin 3.0 (2.5-4.0) gm/dl Albumin/Globulin Ratio 1.2 (0.9-2) 01/30/23 01/29/23 Range/Units 05:37 20:47 WBC 12.10 H (4.8-10.8) K/ul RBC 4.96 (4.70-6.10) M/uL Hgb 15.2 (14.0-18.0) g/dl Hct 44.7 (42.0-52.0) % MCV 90.1 (80.0-100.0) fL MCH 30.6 (25.0-34.0) pg MCHC 34.0 (32.0-36.0) g/dL RDW Std Deviation 40.8 (36.4-46.3) fL RDW Coeff of Anita 12.3 (11.5-14.5) % Plt Count 150 (130-400) K/uL MPV 9.7 (9.4-12.4) fL Immature Gran % (Auto) 0.6 % Neut % (Auto) 89.2 % Lymph % (Auto) 4.1 % Boone % (Auto) 5.9 % Eos % (Auto) 0.0 % Baso % (Auto) 0.2 % Neut # (Auto) 10.80 H (1.40-6.50) K/uL Lymph # (Auto) 0.50 L (1.2-3.4) K/uL Boone # (Auto) 0.71 H (0.11-0.59) K/uL Eos # (Auto) 0.00 (0-0.50) K/uL Baso # (Auto) 0.02 (0-0.2) K/uL Immature Gran # (Auto) 0.07 (0.01-0.20) K/uL PT (9.0-12.0) Seconds INR (0.9-1.1) APTT (21.0-31.0) Seconds PTT Ratio Sodium (136-145) mmol/L Potassium (3.5-5.1) mmol/L Chloride (98-107) mmol/L Carbon Dioxide (21-32) mmol/L Anion Gap (3-11) BUN (6-23) mg/dl Creatinine (0.6-1.4) mg/dl Est Cr Clr Drug Dosing ml/min Est GFR ( Amer) ml/min Est GFR (Non-Af Amer) ml/min BUN/Creatinine Ratio (10-20) Glucose (70-99(Fasting)) mg/dl POC Glucose 106 H (70-99) mg/dl Calcium (8.5-10.1) mg/dl Magnesium (1.7-2.4) mg/dl Total Bilirubin (0.2-1.0) mg/dl AST (13-39) U/L ALT (7-52) U/L Alkaline Phosphatase (34-104) U/L Total Protein (6.0-8.3) gm/dl Albumin (3.4-5.0) gm/dl Globulin (2.5-4.0) gm/dl Albumin/Globulin Ratio (0.9-2)
[2023-01-30] MEDS: NSS + 20MEQ KCL 20 MEQ/1,000 ML BAG IV SCH (13:29)
--- NOTE | 2023-01-30 13:54 | Surgery Progress Note ---
Date of Service January 30, 2023 Assessment & Plan (1) Acute cholecystitis: Plan: 77year old male with cholelithiasis, acute cholecystitis, and likely choledocholithiasis versus passed stone. ERCP planned for this afternoon. We will attempt to perform lap mulu at the same time. Tentatively plan for laparoscopic cholecystectomy with possible cholangiogram if timing allows risks discussed to include but not limited to bleeding, infection, retained stone, bile leak, open surgery, damage to surrounding structures including bile duct, need for future or more extensive surgery, failure to treat symptoms, and risks of anesthesia. If we will perform cholecystectomy today, he can be discharged on antibiotics but I will plan for robotic assisted laparoscopic cholecystectomy on Friday. Admission and Anticipated Discharge Date Admission Date: January 29, 2023 Subjective 77-year-old male admitted with choledocholithiasis and cholecystitis, LFTs downtrending. GI seen the patient and plan on ERCP later's afternoon. Physical Exam Constitutional: WD/WN, vitals as above Gastrointestinal (Abdomen): Percussion/Palpation: + abdomen tender (Right upper quadrant) and abdomen soft; no guarding and abdomen not rigid Results & Data ([facility]) Vital Signs (Past 12 Hours) Vital Signs Temp Pulse Pulse Resp BP Pulse Ox O2 Del Method 01/30/23 12:00 37.3 C 88 20 130/75 93 Room Air 01/30/23 07:50 103 H 01/30/23 07:44 37.6 C H 110 H 18 139/77 94 Room Air 01/30/23 03:36 37.2 C 108 H 20 146/78 H 92 Room Air PG Care Time/CCT Total # of Minutes Spent Total Time Spent with Patient: Total time spent is greater than 50% in coordination of care (as documented) at patient's floor/unit and/or counseling patient: Coding Level of Care Code 52229 SUB INP/OBS CARE 12/25MIN Diagnoses Acute cholecystitis K81.0
--- NOTE | 2023-01-30 15:15 | History & Physical Bridge Note ---
Date of Service January 30, 2023 History & Physical Bridge Note I have examined the patient, reviewed the History & Physical and in the interval since the performance of the History & Physical I have noted the following changes of clinical significance: no changes noted EUS/ERCP today Patient was explained in detail regarding risks, benefits, limitations and alternatives of the above endoscopic procedure. Risks of intravenous sedation used for procedure were also explained. Risks include, but not limited to pe rforation, bleeding, infection, respiratory distress, cardiac arrest and . Patient is also aware about the possibility of missed lesion. Patient's questions were answered. The patient verbalized understanding the information and agreed to undergo the procedure.
[2023-01-30] MEDS ORDERED: PROPOFOL IV EMULSION 10 MG/ML 20 ML VIAL IV ONE (15:44)
[2023-01-30] MEDS ORDERED: fentaNYL citrate PF 100 MCG/2 ML VIAL ONE (15:44)
[2023-01-30] MEDS ORDERED: ONDANSETRON INJ 2 MG/ML 2 ML VIAL ONE (15:44)
[2023-01-30] MEDS ORDERED: MIDAZOLAM HCL 1 MG/ML 2ML VIAL ONE (15:44)
[2023-01-30] MEDS ORDERED: DEXAMETHASONE SOD INJ 4 MG/ML VIAL ONE (15:44)
--- NOTE | 2023-01-30 15:49 | Anesthesiology Consultation ---
Date of Service January 30, 2023 Assessment & Plan Chart Review Chart Review: Acceptable Risk for Surgery Consults Requested none ASA ASA3 Proposed Anesthesia Anesthesia Type: General Risk / Benefits Reviewed With: PT / POA / Parent / Guardian, Accepts Plan and Informed Consent Obtained History Surgery Operation Date: 01/30/23 14:00 Proposed Procedures p Endoscopic Retrograde Cholangiopancreatogram - MD gabby Bethea Laparoscopic Cholecystectomy - Kamlesh Anaya DO, FACS Height/Weight Height: 5 ft 8 in Weight: 72.4 kg Allergies Allergy/AdvReac Type Severity Reaction Status Date / Time finasteride AdvReac Breast Verified 03/31/22 15:29 tenderness Medications Home Medications Medication Instructions Recorded Confirmed Last Taken ascorbic acid (vitamin C) 500 mg 500 mg PO DAILY 10/16/21 01/29/23 03/31/22 capsule calcium carb-ergocalciferol (vit 1 tab PO DAILY 10/16/21 01/29/23 03/31/22 D2) 600 mg calcium-200 unit tablet multivitamin 1 tab PO DAILY 10/16/21 01/29/23 03/31/22 royal jelly 500 mg capsule 500 mg PO TIDWMEAL 03/31/22 01/29/23 03/31/22 cholecalciferol (vitamin D3) 125 125 mcg PO DAILY 10/17/22 01/29/23 Unknown mcg (5,000 unit) capsule vinia 400 mg PO DAILY 10/17/22 01/29/23 Unknown tamsulosin 0.4 mg capsule 0.4 mg PO DAILY Frequency 11/15/22 01/29/23 Unknown aspirin 81 mg chewable tablet 81 mg PO Q OTHER DAY 01/29/23 01/29/23 Unknown empagliflozin 10 mg tablet 10 mg PO DAILY 01/29/23 01/29/23 01/29/23 (Jardiance) Active Medications Generic Name Dose Route Start Last Admin Trade Name Freq PRN Reason Stop Dose Admin Potassium Chloride/Sodium Chloride 20 meq in 1,000 mls @ 80 mls/hr 01/29/23 23:30 01/30/23 13:29 Normal Saline W/20 Meq Kcl IV 02/28/23 22:44 80 mls/hr .[id number] CRYSTAL Administration Piperacillin Sod/Tazobactam 120 mls @ 30 mls/hr 01/30/23 06:00 01/30/23 13:29 Sod 4.5 gm/ Dextrose IV 02/09/23 05:59 30 mls/hr Q8H CRYSTAL Administration Protocol Famotidine 20 mg/ Syringe 5 mls @ 2.5 mls/min 01/30/23 09:00 01/30/23 08:19 IV 03/01/23 08:59 2.5 mls/min Q12 CRYSTAL Administration Insulin Aspart 0 units 01/30/23 07:30 01/30/23 12:11 Insulin Aspart Per Unit SC 03/01/23 07:29 Not Given ACHS CRYSTAL Ketorolac Tromethamine 15 mg 01/29/23 23:14 01/30/23 08:17 Ketorolac Tromethamine 15 Mg/Ml Vial IV 02/03/23 23:13 15 mg Q6H PRN Administration mild pain or fever Ondansetron HCl 4 mg 01/29/23 22:31 01/30/23 08:17 Ondansetron Inj 2 Mg/Ml 2 Ml Vial IV 02/28/23 22:30 4 mg Q6H PRN Administration Nausea NPO Date Last Intake of Fluids: 01/29/23 Time Last Intake of Fluids: 23:00 Date Last Intake of Solids: 02/25/23 Time Last Intake of Solids: 12:00 Past Medical History Medical History Elevated blood pressure reading without diagnosis of hypertension Osteoarthritis Prostate cancer (09/07/21) Sleep apnea Exercise / Class Metabolic Activity II 4-5 Yardwork/Stairs/Walk up hill Past Family History Family History Mother , in her 90s Natural with unknown cause Father , 93yo No problems noted. Brother Family history unknown Brother Family history unknown Brother Suicide Sister Family history unknown Sister Family history unknown Son No problems noted. Daughter No problems noted. Past Surgical History Surgical History H/O left inguinal hernia repair H/O umbilical hernia repair Past Anesthesia History No Hx of Anesthesia Complications and No Family Hx of Anesthesia Complications History of PONV No Hx of PONV and No Hx of Motion Sickness Social History Smoking Status: Former smoker Hx Alcohol Use: No Hx Substance Use: No Physical Exam Vital Signs Last Vital Signs Temp 98.4 F 01/30/23 14:33 Pulse 102 H 01/30/23 14:33 Resp 20 01/30/23 14:33 BP 128/75 01/30/23 14:33 Pulse Ox 95 01/30/23 14:33 O2 Del Method Room Air 01/30/23 14:33 ENMT Mouth: no dentition abnormality Thyromental Distance: > or= 3.5 Finger Breadths Mallampati Class: II Neck normal visual inspection Respiratory normal respiratory effort Auscultation: lungs clear to auscultation bilaterally Cardiovascular Rate/Rhythm: regular rate and regular rhythm Testing Laboratory Results 01/30/23 05:37 01/30/23 05:37 PT 11.9 Seconds (9.0-12.0) 01/30/23 05:37 INR 1.1 (0.9-1.1) 01/30/23 05:37 APTT 32.6 Seconds (21.0-31.0) H 01/30/23 05:37 01/30/23 01/30/23 11:56 08:01 POC Glucose 109 H 115 H Electrocardiogram Date: 03/31/22 Findings: + NSR @ (88 bpm) Echocardiogram Date: 04/01/23 EF: 55-60% LV Function: normal
[2023-01-30] MEDS ORDERED: ePHEDrine sulfate 50 MG/ML AMP IV PRN (15:50)
[2023-01-30] MEDS ORDERED: ONDANSETRON INJ 2 MG/ML 2 ML VIAL IV PRN (15:50)
[2023-01-30] MEDS ORDERED: ATROPINE SULFATE 0.1 MG/ML 10ML SYR IV PRN (15:50)
[2023-01-30] MEDS ORDERED: fentaNYL citrate PF 100 MCG/2 ML VIAL IV PRN (15:50)
[2023-01-30] MEDS ORDERED: INDOMETHACIN 50 MG SUPP PR ONE (16:07)
[2023-01-30] MEDS ORDERED: SUGAMMADEX SODIUM 200 MG/2 ML VIAL IV ONE (16:20)
[2023-01-30] MEDS ORDERED: PHENYLEPHRINE 100MCG/ML 5ML SYR ONE (16:23)
[2023-01-30] MEDS ORDERED: ROCURONIUM BROMIDE 10 MG/ML 5 ML VIAL IV ONE (16:33)
--- NOTE | 2023-01-30 16:42 | Operative Report ---
Post Operative Report Pre & Post Diagnosis Operation Date: 01/30/23 14:00 Pre-Op Diagnosis: ACUTE COLITIS I identified the patient and participated in the time-out.: Yes Procedure Operation Date: 01/30/23 14:00 Actual Procedures p Esophagogastroduodenoscopy - Fani Carolina MD p Endoscopic Retrograde Cholangiopancreato - Fani Carolina MD s Endoscopic Ultrasonography Upper - Fani Carolina MD Surgeon Fani Carolina MD Order Editor None Estimated Blood Loss 0 Findings See Below (Choledocholithiasis and acute cholangitis. CBD stent placed) Specimens None Description of Procedure EUS/ERCP I attest to the content of the Intraoperative Record and any orders documented therein. Any exceptions are noted below.
--- NOTE | 2023-01-30 16:47 | GI REPORT ---
Patient Name: Gurwinder Cuello Procedure Date: 01/30/2023 4:01 PM Date of : 1945 Admit Type: Inpatient Age: 77 Gender: Male Attending MD: Fani Carolina MD, Procedure: Upper GI endoscopy Providers: Fani Carolina MD Referring MD: Kedar Bates Indications: Abdominal pain Medicines: General Anesthesia Complications: No immediate complications. Estimated Blood Loss: Estimated blood loss: none. Procedure: Pre-Anesthesia Assessment: - Prior to the procedure, a History and Physical was performed, and patient medications, allergies and sensitivities were reviewed. The patient's tolerance of previous anesthesia was reviewed. - The risks and benefits of the procedure and the sedation options and risks were discussed with the patient. All questions were answered and informed consent was obtained. - Patient identification and proposed procedure were verified prior to the procedure by the physician and the nurse. The procedure was verified in the procedure room. - Pre-procedure physical examination revealed no contraindications to sedation. After obtaining informed consent, the endoscope was passed under direct vision. Throughout the procedure, the patient's blood pressure, pulse, and oxygen saturations were monitored continuously. The Endoscope was introduced through the mouth, and advanced to the second part of duodenum. The upper GI endoscopy was accomplished without difficulty. The patient tolerated the procedure well. Findings: The examined esophagus was normal. Mildly erythematous mucosa was found in the stomach. Few non-bleeding superficial duodenal ulcers with no stigmata of bleeding were found in the duodenal bulb and in the second portion of the duodenum. The largest lesion was 15 mm in largest dimension. Impression: - Normal esophagus. - Erythematous mucosa in the stomach. - Non-bleeding duodenal ulcers with no stigmata of bleeding. - No specimens collected. Recommendation: - Use a proton pump inhibitor IV BID for 2 days then PO BID for 2 months. - Avoid NSAIDs. - Perform an upper endoscopic ultrasound (UEUS) today. Fani Carolina MD 01/30/2023 4:46:51 PM This report has been signed electronically. Note Initiated On: 01/30/2023 4:01 PM Number of Addenda: 0 I attest to the content of the Intraoperative Record and orders documented therein, exceptions below {[id number]}
--- NOTE | 2023-01-30 16:49 | GI REPORT ---
Patient Name: Gurwinder Cuello Procedure Date: 01/30/2023 4:46 PM Date of : 1945 Admit Type: Inpatient Age: 77 Gender: Male Attending MD: Fani Carolina MD, Procedure: Upper EUS Providers: Fani Carolina MD Referring MD: Kedar Bates Indications: Elevated liver enzymes, Suspected choledocholithiasis Medicines: General Anesthesia Complications: No immediate complications. Estimated Blood Loss: Estimated blood loss: none. Procedure: Pre-Anesthesia Assessment: - Prior to the procedure, a History and Physical was performed, and patient medications, allergies and sensitivities were reviewed. The patient's tolerance of previous anesthesia was reviewed. - The risks and benefits of the procedure and the sedation options and risks were discussed with the patient. All questions were answered and informed consent was obtained. - Patient identification and proposed procedure were verified prior to the procedure by the physician and the nurse. The procedure was verified in the procedure room. - Pre-procedure physical examination revealed no contraindications to sedation. After obtaining informed consent, the endoscope was passed under direct vision. Throughout the procedure, the patient's blood pressure, pulse, and oxygen saturations were monitored continuously. The Endosonoscope was introduced through the mouth, and advanced to the second part of duodenum. The upper EUS was accomplished without difficulty. The patient tolerated the procedure well. Findings: ENDOSONOGRAPHIC FINDING: : There was no sign of significant endosonographic abnormality in the ampulla. No masses were identified. There was dilation in the common bile duct which measured up to 11 mm. One stone was visualized endosonographically in the common bile duct. The stone was round. It was hyperechoic. Many stones were visualized endosonographically in the gallbladder. They were hyperechoic and characterized by shadowing. There was no sign of significant endosonographic abnormality in the visualized portion of the liver. Homogeneous parenchyma was identified. There was no sign of significant endosonographic abnormality in the entire pancreas. The pancreatic duct measured up to 2 mm in diameter. Impression: - There was no sign of significant pathology in the ampulla. - There was dilation in the common bile duct which measured up to 11 mm. - One stone was visualized endosonographically in the common bile duct. - Many stones and sludge were visualized endosonographically in the gallbladder which was distended. - There was no evidence of significant pathology in the visualized portion of the liver. - There was no sign of significant pathology in the entire pancreas. Recommendation: - Perform an ERCP today. Fani Carolina MD 01/30/2023 4:49:18 PM This report has been signed electronically. Note Initiated On: 01/30/2023 4:46 PM Number of Addenda: 0 I attest to the content of the Intraoperative Record and orders documented therein, exceptions below {[id number]}
--- NOTE | 2023-01-30 16:53 | GI REPORT ---
Patient Name: Gurwinder Cuello Procedure Date: 01/30/2023 4:21 PM Date of : 1945 Admit Type: Inpatient Age: 77 Gender: Male Attending MD: Fani Carolina MD, Procedure: ERCP Providers: Fani Carolina MD Referring MD: Kedar Bates Indications: For therapy of bile duct stone(s), For therapy of ascending cholangitis Medicines: General Anesthesia Complications: No immediate complications. Estimated Blood Loss: Estimated blood loss: none. Procedure: Pre-Anesthesia Assessment: - Prior to the procedure, a History and Physical was performed, and patient medications, allergies and sensitivities were reviewed. The patient's tolerance of previous anesthesia was reviewed. - The risks and benefits of the procedure and the sedation options and risks were discussed with the patient. All questions were answered and informed consent was obtained. - Patient identification and proposed procedure were verified prior to the procedure by the physician and the nurse. The procedure was verified in the procedure room. - Pre-procedure physical examination revealed no contraindications to sedation. After obtaining informed consent, the scope was passed under direct vision. Throughout the procedure, the patient's blood pressure, pulse, and oxygen saturations were monitored continuously. The Duodenoscope was introduced through the mouth, and advanced to the duodenum and used to inject contrast into the bile duct. The ERCP was accomplished without difficulty. The patient tolerated the procedure well. Findings: The bone drier operator film was normal. The esophagus was successfully intubated under direct vision. The scope was advanced to a normal major papilla in the descending duodenum without detailed examination of the pharynx, larynx and associated structures, and upper GI tract. The upper GI tract was grossly normal. A 0.035 inch straight standard wire was passed into the biliary tree. The short-nosed traction sphincterotome was passed over the guidewire and the bile duct was then deeply cannulated. Contrast was injected. I personally interpreted the bile duct images. Ductal flow of contrast was adequate. Image quality was adequate. Contrast extended to the main bile duct. Opacification of the entire biliary tree was successful. The maximum diameter of the ducts was 12 mm. The cystic duct was opacified and I was able to pass the guidewire deep into the gallbladder. Biliary sphincterotomy was made with a monofilament traction (standard) sphincterotome using ERBE electrocautery. There was no post-sphincterotomy bleeding. The biliary tree was swept with a 15 mm balloon starting at the bifurcation. Sludge was swept from the duct. One stone was removed. No stones remained. Pus was swept from the duct. One 10 Fr by 9 cm plastic biliary stent with a single external flap and a single internal flap was placed into the common bile duct. Bile flowed through the stent. The stent was in good position. Impression: - Acuye cholangitis with choledocholithiasis was found. Complete removal was accomplished by biliary sphincterotomy and balloon extraction. - One plastic biliary stent was placed into the common bile duct. Recommendation: - Return patient [facility] care. - Follow up with general surgery for cholecystectomy. - Repeat ERCP in 3 months to remove stent. Fani Carolina MD 01/30/2023 4:52:58 PM This report has been signed electronically. Note Initiated On: 01/30/2023 4:21 PM Number of Addenda: 0 I attest to the content of the Intraoperative Record and orders documented therein, exceptions below {[id number]}
--- NOTE | 2023-01-30 17:09 | Fluoroscopy Report ---
[place] ERCP biliary ductal CLINICAL HISTORY: CHECK DUCTS TECHNIQUE: 10 views were obtained with the C-arm in the OR with the above procedure. Total fluoroscop y time was 1 minute 53 seconds. Radiation dose was 41.5 mGy. Comparison: Comparison is made to US 01/30/2023 FINDINGS/IMPRESSION: Intraoperative images were obtained of ERCP Please correlate with intraoperative fluoroscopy and operative report. ACT 112: Negative or not required by law. Electronically signed by: César Peterson M.D. 01/30/2023 5:07 PM
--- NOTE | 2023-01-30 20:00 | Anesthesiology Progress Note ---
Date of Service January 30, 2023 Anesthesia Post Procedure Vital Signs Vital Signs: Temp Pulse Pulse Pulse Resp BP Pulse Ox 01/30/23 18:36 91 H 20 151/79 H 91 01/30/23 17:30 93 H 18 135/77 92 01/30/23 17:15 36.7 C 88 16 123/70 92 01/30/23 18:01 90 90 16 123/74 90 01/30/23 17:12 89 01/30/23 17:05 103 H 18 134/82 96 01/30/23 16:55 102 H 22 130/73 97 01/30/23 16:49 37.3 C 110 H 14 140/81 95 01/30/23 14:33 36.9 C 102 H 20 128/75 95 01/30/23 12:00 37.3 C 88 20 130/75 93 01/30/23 07:50 103 H 01/30/23 07:44 37.6 C H 110 H 18 139/77 94 01/30/23 03:36 37.2 C 108 H 20 146/78 H 92 01/29/23 23:21 37.5 C 104 H 20 145/76 H 95 01/29/23 20:43 01/29/23 20:43 37.6 C H 111 H 19 127/79 92 01/29/23 20:41 37.6 C H 111 H 18 127/79 92 O2 Del Method O2 Flow Rate 01/30/23 18:36 Room Air 01/30/23 17:30 Room Air 01/30/23 17:15 Room Air 01/30/23 18:01 Room Air 01/30/23 17:12 01/30/23 17:05 Oxymask 3 01/30/23 16:55 Oxymask 4 01/30/23 16:49 Oxymask 5 01/30/23 14:33 Room Air 01/30/23 12:00 Room Air 01/30/23 07:50 01/30/23 07:44 Room Air 01/30/23 03:36 Room Air 01/29/23 23:21 Room Air 01/29/23 20:43 Room Air 01/29/23 20:43 Room Air 01/29/23 20:41 Room Air Pain Intensity Right Upper Abdomen: Pain Intensity: 0 Transfer of Care Handoff Completed per policy Notes Mental Status: alert / awake / arousable Patient Amnestic to Procedure: Yes Nausea / Vomiting: adequately controlled Pain: adequately controlled Airway Patency, RR, SpO2: stable & adequate BP & HR: stable & adequate Hydration State: stable & adequate Anesthetic Complications: no major complications apparent
[2023-01-31] MEDS: PANTOprazole 40 MG in SYRINGE 0 ML IV SCH ×3 (00:11→21:17)
[2023-01-31] MEDS: PIPERACILLIN/TAZOBACTAM 4.5 GM in DEXTROSE 5% 100 ML IV SCH ×4 (00:12→21:18)
[2023-01-31] MEDS: NSS + 20MEQ KCL 20 MEQ/1,000 ML BAG IV SCH ×2 (00:12→12:13)
[2023-01-31 08:22] LABS: Albumin Globulin Ratio 1.1 (0.9-2); Albumin Level 3.2 gm/dl (3.4-5.0); BUN Creatinine Ratio 40.7 (10-20); Bilirubin,Total 1.2 mg/dl (0.2-1.0); Calcium 8.8 mg/dl (8.5-10.1); Creatinine Clr Calc Pharmacy 70.7 ml/min; Est GFR (African American) 97.6 ml/min; Est GFR (Non-African American) 84.2 ml/min; Globulin 2.9 gm/dl (2.5-4.0); Magnesium 2.4 mg/dl (1.7-2.4); Potassium 4.4 mmol/L (3.5-5.1); Total Protein 6.1 gm/dl (6.0-8.3)
[2023-01-31] MEDS: INSULIN ASPART PER UNIT SC SCH ×4 (08:23→21:19)
[2023-01-31 08:42] LABS: INR 1.1 (0.9-1.1); Partial Thromboplastin Ratio 1.1; Partial Thromboplastin Time 29.6 Seconds (21.0-31.0); Prothrombin Time 11.3 Seconds (9.0-12.0)
[2023-01-31 09:14] LABS: Hematocrit (blood only) 52.2 % (42.0-52.0); Hemoglobin 17.6 g/dl (14.0-18.0); Mean Corpuscular Hemoglobin 30.5 pg (25.0-34.0); Mean Corpuscular Hgb Conc 33.7 g/dL (32.0-36.0); Mean Corpuscular Volume 90.5 fL (80.0-100.0); Mean Platelet Volume 9.2 fL (9.4-12.4); Platelet Count 221 K/uL (130-400); RDW Coefficient of Variation 12.4 % (11.5-14.5); RDW Standard Deviation 41.1 fL (36.4-46.3); Red Blood Count 5.77 M/uL (4.70-6.10); White Blood Count 16.31 K/ul (4.8-10.8)
--- NOTE | 2023-01-31 09:34 | Surgery Progress Note ---
Date of Service January 31, 2023 Assessment & Plan (1) Ascending cholangitis: Plan: 77-year-old male postprocedure day #1 ERCP for choledocholithiasis with cholangitis and cholecystitis, doing well. Given his findings of cholangitis we will allow things to cool off for a few days. continue IV antibiotics, and advance his diet as tolerated if okay with GI. Can be discharged on oral antibiotics and low-fat diet once cleared by medicine and GI We will plan on robotic assisted laparoscopic cholecystectomy on Friday, 05 February [address] Johnson covering over the weekend (2) Acute cholecystitis: Admission and Anticipated Discharge Date Admission Date: January 29, 2023 Subjective 77-year-old male transferred from [facility] for cholangitis and cholecystitis, PPD #1 ERCP with removal of stone and stent placement. Findings showed cholangitis, but GI was able to confirm that the cystic duct was open. He is feeling better today than he did for the past few weeks. kettle tender and sore in his right upper quadrant and epigastrium. Physical Exam Constitutional: WD/WN, vitals as above Gastrointestinal (Abdomen): Percussion/Palpation: + abdomen tender (TTP right upper quadrant, improving) and abdomen soft; no guarding and abdomen not rigid Results & Data ([facility]) Vital Signs (Past 12 Hours) Vital Signs Temp Pulse Resp BP Pulse Ox O2 Del Method 01/31/23 07:47 36.7 C 83 18 121/72 94 Room Air 01/31/23 07:42 36.7 C 76 16 145/80 H 94 Room Air 01/31/23 03:36 36.7 C 79 18 119/71 93 Room Air 01/30/23 23:25 36.7 C 93 H 18 127/73 93 Room Air Laboratory Results Laboratory Results - last 24 hr 01/30/23 01/30/23 01/30/23 11:56 17:19 20:58 WBC RBC Hgb Hct MCV MCH MCHC RDW Std Deviation RDW Coeff of Anita Plt Count MPV Immature Gran % (Auto) Neut % (Auto) Lymph % (Auto) [place] % (Auto) Eos % (Auto) Baso % (Auto) Neut # (Auto) Lymph # (Auto) [place] # (Auto) Eos # (Auto) Baso # (Auto) Immature Gran # (Auto) Absolute Nucleated RBC Nucleated RBC % (auto) Neutrophils % (Manual) Band Neutrophils % Lymphocytes % (Manual) Prolymphocyte % Reactive Lymphs % (Man) Monocytes % (Manual) Eosinophils % (Manual) Basophils % (Manual) Metamyelocytes % (Man) Myelocytes % (Man) Promyelocytes % (Man) Blast Cells % (Manual) Plasma Cell % (Manual) Other Cells % Nucleated RBC % Neutrophils # (Manual) Band Neutrophils # Total Absolute Neuts Lymphocytes # (Manual) Prolymphocyte # Reactive Lymphs # Total Abs Lymphocytes Monocytes # (Manual) Eosinophils # (Manual) Basophils # (Manual) Metamyelocytes # (Man) Myelocytes # (Manual) Promyelocytes # (Man) Blast Cells # (Man) Plasma Cell # (Manual) Other Cells # Nucleated RBCs # (Man) Hypersegmented Neuts Hyposegmented Neuts Hypogranular Neuts Large Granular Lymphs # Lrg Granular Lymphs Hairy Cells Smudge Cells Toxic Granulation Toxic Vacuolation Dohle Bodies Kecia Rods Platelet Estimate Hypogranular Platelets Giant Platelets Platelet Satelliting RBC Morphology Polychromasia Hypochromasia Poikilocytosis Basophilic Stippling Anisocytosis Microcytosis Macrocytosis Spherocytes Pappenheimer Bodies Sickle Cells Target Cells Tear Drop Cells Ovalocytes Stomatocytes Velez-Rugby Bodies Echinocytes Acanthocytes (Spur) Rouleaux RBC Agglutinates Schistocytes Sezary Cell PT INR APTT PTT Ratio Sodium Potassium Chloride Carbon Dioxide Anion Gap BUN Creatinine Est Cr Clr Drug Dosing Est GFR ( Amer) Est GFR (Non-Af Amer) BUN/Creatinine Ratio Glucose POC Glucose 109 H 116 H 123 H Calcium Magnesium Total Bilirubin AST ALT Alkaline Phosphatase Total Protein Albumin Globulin Albumin/Globulin Ratio Blood Parasites ID 01/31/23 01/31/23 01/31/23 07:07 07:07 07:07 WBC Cancelled RBC Cancelled Hgb Cancelled Hct Cancelled MCV Cancelled MCH Cancelled MCHC Cancelled RDW Std Deviation Cancelled RDW Coeff of Anita Cancelled Plt Count Cancelled MPV Cancelled Immature Gran % (Auto) Cancelled Neut % (Auto) Cancelled Lymph % (Auto) Cancelled [place] % (Auto) Cancelled Eos % (Auto) Cancelled Baso % (Auto) Cancelled Neut # (Auto) Cancelled Lymph # (Auto) Cancelled [place] # (Auto) Cancelled Eos # (Auto) Cancelled Baso # (Auto) Cancelled Immature Gran # (Auto) Cancelled Absolute Nucleated RBC Cancelled Nucleated RBC % (auto) Cancelled Neutrophils % (Manual) Cancelled Band Neutrophils % Cancelled Lymphocytes % (Manual) Cancelled Prolymphocyte % Cancelled Reactive Lymphs % (Man) Cancelled Monocytes % (Manual) Cancelled Eosinophils % (Manual) Cancelled Basophils % (Manual) Cancelled Metamyelocytes % (Man) Cancelled Myelocytes % (Man) Cancelled Promyelocytes % (Man) Cancelled Blast Cells % (Manual) Cancelled Plasma Cell % (Manual) Cancelled Other Cells % Cancelled Nucleated RBC % Cancelled Neutrophils # (Manual) Cancelled Band Neutrophils # Cancelled Total Absolute Neuts Cancelled Lymphocytes # (Manual) Cancelled Prolymphocyte # Cancelled Reactive Lymphs # Cancelled Total Abs Lymphocytes Cancelled Monocytes # (Manual) Cancelled Eosinophils # (Manual) Cancelled Basophils # (Manual) Cancelled Metamyelocytes # (Man) Cancelled Myelocytes # (Manual) Cancelled Promyelocytes # (Man) Cancelled Blast Cells # (Man) Cancelled Plasma Cell # (Manual) Cancelled Other Cells # Cancelled Nucleated RBCs # (Man) Cancelled Hypersegmented Neuts Cancelled Hyposegmented Neuts Cancelled Hypogranular Neuts Cancelled Large Granular Lymphs Cancelled # Lrg Granular Lymphs Cancelled Hairy Cells Cancelled Smudge Cells Cancelled Toxic Granulation Cancelled Toxic Vacuolation Cancelled Dohle Bodies Cancelled Kecia Rods Cancelled Platelet Estimate Cancelled Hypogranular Platelets Cancelled Giant Platelets Cancelled Platelet Satelliting Cancelled RBC Morphology Cancelled Polychromasia Cancelled Hypochromasia Cancelled Poikilocytosis Cancelled Basophilic Stippling Cancelled Anisocytosis Cancelled Microcytosis Cancelled Macrocytosis Cancelled Spherocytes Cancelled Pappenheimer Bodies Cancelled Sickle Cells Cancelled Target Cells Cancelled Tear Drop Cells Cancelled Ovalocytes Cancelled Stomatocytes Cancelled Velez-Rugby Bodies Cancelled Echinocytes Cancelled Acanthocytes (Spur) Cancelled Rouleaux Cancelled RBC Agglutinates Cancelled Schistocytes Cancelled Sezary Cell Cancelled PT 11.3 INR 1.1 APTT 29.6 PTT Ratio 1.1 Sodium 143 Potassium 4.4 Chloride 114 H Carbon Dioxide 19 L Anion Gap 10 BUN 35 H Creatinine 0.86 Est Cr Clr Drug Dosing 70.7 Est GFR ( Amer) 97.6 Est GFR (Non-Af Amer) 84.2 BUN/Creatinine Ratio 40.7 H Glucose 153 H POC Glucose Calcium 8.8 Magnesium 2.4 Total Bilirubin 1.2 H AST 15 ALT 49 Alkaline Phosphatase 69 Total Protein 6.1 Albumin 3.2 L Globulin 2.9 Albumin/Globulin Ratio 1.1 Blood Parasites ID Cancelled 01/31/23 01/31/23 08:02 08:52 WBC 16.31 H RBC 5.77 Hgb 17.6 Hct 52.2 H MCV 90.5 MCH 30.5 MCHC 33.7 RDW Std Deviation 41.1 RDW Coeff of Anita 12.4 Plt Count 221 MPV 9.2 L Immature Gran % (Auto) Neut % (Auto) Lymph % (Auto) [place] % (Auto) Eos % (Auto) Baso % (Auto) Neut # (Auto) Lymph # (Auto) [place] # (Auto) Eos # (Auto) Baso # (Auto) Immature Gran # (Auto) Absolute Nucleated RBC Nucleated RBC % (auto) Neutrophils % (Manual) Band Neutrophils % Lymphocytes % (Manual) Prolymphocyte % Reactive Lymphs % (Man) Monocytes % (Manual) Eosinophils % (Manual) Basophils % (Manual) Metamyelocytes % (Man) Myelocytes % (Man) Promyelocytes % (Man) Blast Cells % (Manual) Plasma Cell % (Manual) Other Cells % Nucleated RBC % Neutrophils # (Manual) Band Neutrophils # Total Absolute Neuts Lymphocytes # (Manual) Prolymphocyte # Reactive Lymphs # Total Abs Lymphocytes Monocytes # (Manual) Eosinophils # (Manual) Basophils # (Manual) Metamyelocytes # (Man) Myelocytes # (Manual) Promyelocytes # (Man) Blast Cells # (Man) Plasma Cell # (Manual) Other Cells # Nucleated RBCs # (Man) Hypersegmented Neuts Hyposegmented Neuts Hypogranular Neuts Large Granular Lymphs # Lrg Granular Lymphs Hairy Cells Smudge Cells Toxic Granulation Toxic Vacuolation Dohle Bodies Kecia Rods Platelet Estimate Hypogranular Platelets Giant Platelets Platelet Satelliting RBC Morphology Polychromasia Hypochromasia Poikilocytosis Basophilic Stippling Anisocytosis Microcytosis Macrocytosis Spherocytes Pappenheimer Bodies Sickle Cells Target Cells Tear Drop Cells Ovalocytes Stomatocytes Velez-Rugby Bodies Echinocytes Acanthocytes (Spur) Rouleaux RBC Agglutinates Schistocytes Sezary Cell PT INR APTT PTT Ratio Sodium Potassium Chloride Carbon Dioxide Anion Gap BUN Creatinine Est Cr Clr Drug Dosing Est GFR ( Amer) Est GFR (Non-Af Amer) BUN/Creatinine Ratio Glucose POC Glucose 151 H Calcium Magnesium Total Bilirubin AST ALT Alkaline Phosphatase Total Protein Albumin Globulin Albumin/Globulin Ratio Blood Parasites ID PG Care Time/CCT Total # of Minutes Spent Total Time Spent with Patient: Total time spent is greater than 50% in coordination of care (as documented) at patient's floor/unit and/or counseling patient: Coding Level of Care Code 79795 SUB INP/OBS CARE 12/25MIN Diagnoses Ascending cholangitis K83.09 Acute cholecystitis K81.0
[2023-01-31 09:40] LABS: Basophils # (auto) 0.04 K/uL (0-0.2); Basophils % (auto) 0.2 %; Immature Granulocytes # (auto) 0.12 K/uL (0.01-0.20); Immature Granulocytes % (auto) 0.7 %; Lymphocytes # (auto) 0.71 K/uL (1.2-3.4); Lymphocytes % (auto) 4.4 %; Monocytes # (auto) 0.53 K/uL (0.11-0.59); Monocytes % (auto) 3.2 %; Neutrophils # (auto) 14.91 K/uL (1.40-6.50); Neutrophils % (auto) 91.5 %; RBC Morphology Unremarkable
--- NOTE | 2023-01-31 09:57 | Gastroenterology Progress Note ---
Date of Service January 31, 2023 Assessment & Plan (1) Acute cholecystitis: Plan: 77 year old male transferred from OSH for abd pain, nausea/vomiting and intermittent fevers since Friday, ABD US at OSH with report of acute cholecystitis and biliary dilation. Tbili was reported at 4 at OSH, this AM Tbili 2.2 AST 25, ALT 85, ALKP 86 S/P EGD/EUS/ERCP w/ duodenal ulcer, evidence of CBD stone and cholangitis s/p stone extraction, stent placement -Follow up with general surgery for cholecystectomy. - Repeat ERCP in 3 months to remove stent. - Use a proton pump inhibitor IV BID for 2 days then PO BID for 2 months. - Avoid NSAIDs - Full 7 day course of ABX GI will sign off. Thank you for allowing us to participate in the care of this patient. Please call with any acute changes, questions or concerns. Please see addendum below with additional recommendation from my supervising physician. Admission and Anticipated Discharge Date Admission Date: January 29, 2023 Supervising Physician Co-Signing Physician Notes I reviewed chart and labs. Pt with improved labs post procedure. Will sign of f. Subjective Pt was seen and evaluated, chart reviewed. S/P ERCP yesterday. Evidence of cholangtitis, stent placed This AM, some persistent RUQ pain. No nausea, vomiting. LFTs improving EGD 2022: - Normal esophagus. - Erythematous mucosa in the stomach. - Non-bleeding duodenal ulcers with no stigmata of bleeding. - No specimens collected EUS 2022: There was no sign of significant pathology in the ampulla. - There was dilation in the common bile duct which measured up to 11 mm. - One stone was visualized endosonographically in the common bile duct. - Many stones and sludge were visualized endosonographically in the gallbladder which was distended. - There was no evidence of significant pathology in the visualized portion of the liver. - There was no sign of significant pathology in the entire pancreas. ERCP 2022: - Acute cholangitis with choledocholithiasis was found. Complete removal was accomplished by biliary sphincterotomy and balloon extraction. - One plastic biliary stent was placed into the common bile duct. Review of Systems Review of Systems: All systems reviewed & are unremarkable except as noted in HPI & below Physical Exam Constitutional: WD/WN, vitals as above Respiratory: normal respiratory effort, lungs clear to auscultation Cardiovascular: Rate/Rhythm: regular rate and regular rhythm Gastrointestinal (Abdomen): normal bowel sounds, soft, nontender, no hepatosplenomegaly Skin: no rashes, warm and dry Results & Data ([facility]) Vital Signs (Past 12 Hours) Vital Signs Temp Pulse Resp BP Pulse Ox O2 Del Method 01/31/23 07:47 36.7 C 83 18 121/72 94 Room Air 01/31/23 07:42 36.7 C 76 16 145/80 H 94 Room Air 01/31/23 03:36 36.7 C 79 18 119/71 93 Room Air 01/30/23 23:25 36.7 C 93 H 18 127/73 93 Room Air
--- NOTE | 2023-01-31 15:53 | Hospitalist Progress Note ---
Date of Service January 31, 2023 Assessment & Plan (1) Acute cholecystitis: Plan: Clinical concerns for acute cholecystitis significant rest the patient. Patient with sludge and gallbladder thickening on ultrasound. ERCP performed 01/30/[address]. Anaya is pending results for consideration of laparoscopic cholecystectomy patient continues on antibiotics of Zosyn therapy Acute duodenal ulcers without hemorrhage Chronic duodenal ulcer without hemorrhage (2) DM2 (diabetes mellitus, type 2): Plan: Diabetes mellitus- Hold Jardiance Placed on Accu-Cheks with NovoLog coverage per SSI (3) Prostate cancer: Plan: no luts, no treatment Admission and Anticipated Discharge Date Admission Date: January 29, 2023 Results & Data Results & Data ([facility]) Vital Signs (Past 12 Hours) Vital Signs Temp Pulse Pulse Resp BP Pulse Ox O2 Del Method 01/31/23 15:45 82 01/31/23 15:39 98.1 F 72 16 133/74 93 Room Air 01/31/23 11:36 98.1 F 76 16 139/80 95 Room Air 01/31/23 10:00 82 01/31/23 07:47 98.1 F 83 18 121/72 94 Room Air 01/31/23 07:42 98.1 F 76 16 145/80 H 94 Room Air PG Care Time/CCT Total # of Minutes Spent Total Time Spent with Patient: Total time spent is greater than 50% in coordination of care (as documented) at patient's floor/unit and/or counseling patient: Coding Level of Care Code None Diagnoses Acute cholecystitis K81.0 DM2 (diabetes mellitus, type 2) E11.9 Prostate cancer C61
--- NOTE | 2023-01-31 17:31 | Hospitalist Progress Note ---
Date of Service January 31, 2023 Assessment & Plan (1) Acute cholecystitis: Plan: Clinical concerns for acute cholecystitis significant risk to the patient. Patient with sludge and gallbladder thickening on ultrasound. ERCP performed 01/30/[address] Dr. 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 (2) DM2 (diabetes mellitus, type 2): Plan: Diabetes mellitus-chronic and unstable with n.p.o. status Continue to hold Jardiance Placed on Accu-Cheks with NovoLog coverage per SSI (3) Prostate cancer: Plan: Chronic and stable no luts, no treatment Admission and Anticipated Discharge Date Admission Date: January 29, 2023 Subjective Patient is seen in the company of his in the surgical [facility]. Plan will be to have the patient be treated medically with consideration of next week laparoscopic cholecystectomy for cholecystitis. LFTs improving clinically the patient is also stable Results & Data Results & Data ([facility]) Vital Signs (Past 12 Hours) Vital Signs Temp Pulse Pulse Resp BP Pulse Ox O2 Del Method 01/31/23 15:45 82 01/31/23 15:39 98.1 F 72 16 133/74 93 Room Air 01/31/23 11:36 98.1 F 76 16 139/80 95 Room Air 01/31/23 10:00 82 01/31/23 07:47 98.1 F 83 18 121/72 94 Room Air 01/31/23 07:42 98.1 F 76 16 145/80 H 94 Room Air Laboratory Results Reviewed CBC Reviewed coagulation studies Reviewed chemistry studies Diagnostic Findings EGD 2022: - Normal esophagus. - Erythematous mucosa in the stomach. - Non-bleeding duodenal ulcers with no stigmata of bleeding. - No specimens collected EUS 2022: There was no sign of significant pathology in the ampulla. - There was dilation in the common bile duct which measured up to 11 mm. - One stone was visualized endosonographically in the common bile duct. - Many stones and sludge were visualized endosonographically in the gallbladder which was distended. - There was no evidence of significant pathology in the visualized portion of the liver. - There was no sign of significant pathology in the entire pancreas. ERCP 2022: - Acute cholangitis with choledocholithiasis was found. Complete removal was accomplished by biliary sphincterotomy and balloon extraction. - One plastic biliary stent was placed into the common bile duct. PG Care Time/CCT Total # of Minutes Spent Total Time Spent with Patient: Total time spent is greater than 50% in coordination of care (as documented) at patient's floor/unit and/or counseling patient: Coding Level of Care Code 98282 SUB INP/OBS CARE 2/35MIN Diagnoses Acute cholecystitis K81.0 DM2 (diabetes mellitus, type 2) E11.9 Prostate cancer C61
[2023-01-31] MEDS ORDERED: ACETAMINOPHEN 325 MG TAB PO PRN (21:39)
[2023-01-31] MEDS ORDERED: ACETAMINOPHEN 1,000 MG/100 ML VIAL IV STA (22:32)
[2023-01-31] MEDS ORDERED: ACETAMINOPHEN 1000 MG/100 ML IV IV ONE (22:37)
[2023-02-01] MEDS: NSS + 20MEQ KCL 20 MEQ/1,000 ML BAG IV SCH (00:49)
[2023-02-01] MEDS: PIPERACILLIN/TAZOBACTAM 4.5 GM in DEXTROSE 5% 100 ML IV SCH ×3 (05:32→22:26)
[2023-02-01 06:09] LABS: Basophils # (auto) 0.02 K/uL (0-0.2); Basophils % (auto) 0.2 %; Eosinophils # (auto) 0.01 K/uL (0-0.50); Eosinophils % (auto) 0.1 %; Hematocrit (blood only) 44.3 % (42.0-52.0); Hemoglobin 14.8 g/dl (14.0-18.0); Immature Granulocytes # (auto) 0.05 K/uL (0.01-0.20); Immature Granulocytes % (auto) 0.4 %; Lymphocytes # (auto) 0.79 K/uL (1.2-3.4); Lymphocytes % (auto) 6.3 %; Mean Corpuscular Hemoglobin 30.5 pg (25.0-34.0); Mean Corpuscular Hgb Conc 33.4 g/dL (32.0-36.0); Mean Corpuscular Volume 91.2 fL (80.0-100.0); Mean Platelet Volume 9.4 fL (9.4-12.4); Monocytes # (auto) 0.83 K/uL (0.11-0.59); Monocytes % (auto) 6.6 %; Neutrophils # (auto) 10.82 K/uL (1.40-6.50); Neutrophils % (auto) 86.4 %; Platelet Count 181 K/uL (130-400); RDW Coefficient of Variation 12.1 % (11.5-14.5); RDW Standard Deviation 40.8 fL (36.4-46.3); Red Blood Count 4.86 M/uL (4.70-6.10); White Blood Count 12.52 K/ul (4.8-10.8)
[2023-02-01] MEDS ORDERED: ACETAMINOPHEN 1,000 MG/100 ML VIAL IV STA (08:23)
[2023-02-01] MEDS: PANTOprazole 40 MG in SYRINGE 0 ML IV SCH ×2 (08:37→20:16)
[2023-02-01] MEDS: INSULIN ASPART PER UNIT SC SCH ×4 (08:40→21:36)
[2023-02-01 08:54] LABS: Albumin Level 3.2 gm/dl (3.4-5.0); Bilirubin,Total 1.1 mg/dl (0.2-1.0); Calcium 8.9 mg/dl (8.5-10.1); Magnesium 2.2 mg/dl (1.7-2.4); Potassium 4.4 mmol/L (3.5-5.1)
[2023-02-01 09:00] LABS: Albumin Globulin Ratio 1.1 (0.9-2); BUN Creatinine Ratio 37.2 (10-20); Creatinine Clr Calc Pharmacy 77.9 ml/min; Est GFR (African American) 101.6 ml/min; Est GFR (Non-African American) 87.7 ml/min; Globulin 2.9 gm/dl (2.5-4.0); Total Protein 6.1 gm/dl (6.0-8.3)
--- NOTE | 2023-02-01 09:07 | Surgery Progress Note ---
Date of Service February 01, 2023 Assessment & Plan (1) Ascending cholangitis: Plan: POD #2 ERCP labs trending well WBC still elevated taking po OK IV abx will follow, will need lap mulu either this hopsitalization or as outpatient Present on Admission?: Yes Admission and Anticipated Discharge Date Admission Date: January 29, 2023 Subjective pain controlled with meds no N/V taking po only OK afebrile Review of Systems Constitutional: no fever and no chills Eyes: no problem reported Respiratory: no dyspnea Cardiovascular: no chest pain Gastrointestinal: + abdominal pain; no nausea, no vomiting and no change in bowel habits Genitourinary: no dysuria Musculoskeletal: no back pain Integumentary: no change in skin color Neurologic: + generalized weakness; no localized weakness Physical Exam Constitutional: well developed and well nourished Eyes: PERRL, conjunctivae normal, anicteric sclerae ENMT: external ear and nose normal, oropharynx normal Neck: trachea midline Respiratory: normal respiratory effort, lungs clear to auscultation Cardiovascular: RRR, no murmur, no edema Gastrointestinal (Abdomen): Inspection/Auscultation: abdomen normal to inspection and normal bowel sounds; abdomen not distended Percussion/Palpation: + abdomen tender and abdomen soft; no guarding and abdomen not rigid Musculoskeletal: Head/Neck/Chest: normocephalic and head atraumatic Skin: no rashes, warm and dry no jaundice Results & Data ([facility]) Vital Signs (Past 12 Hours) Vital Signs Temp Pulse Pulse Pulse Resp BP Pulse Ox 02/01/23 07:48 37.2 C 76 19 141/78 H 95 02/01/23 04:16 36.7 C 79 18 147/77 H 96 01/31/23 23:57 36.7 C 74 18 117/68 95 01/31/23 23:59 76 O2 Del Method 02/01/23 07:48 Room Air 02/01/23 04:16 Room Air 01/31/23 23:57 Room Air 01/31/23 23:59
--- NOTE | 2023-02-01 12:39 | Hospitalist Progress Note ---
Date of Service February 01, 2023 Assessment & Plan (1) Acute cholecystitis: Plan: Clinical concerns for acute cholecystitis significant risk to the patient. Patient with sludge and gallbladder thickening on ultrasound. ERCP performed 01/30/[address] Elmer Holder. Increased pain associated adding Ultram to his pain regimen on 02/01/2023 Dr. 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 (2) DM2 (diabetes mellitus, type 2): Plan: Diabetes mellitus-chronic and unstable with n.p.o. status Continue to hold Jardiance Placed on Accu-Cheks with NovoLog coverage per SSI [id number] glucoses reviewed over the last 24 hours and are acceptable (3) Prostate cancer: Plan: Chronic and stable no luts, no treatment Admission and Anticipated Discharge Date Admission Date: January 29, 2023 Subjective Patient was seen in his room with his he is up getting dressed he is got some mild to moderate persistent abdominal pain he is able to tolerate advancing diet Physical Exam Physical Exam: But appropriate cardiac's regular lungs are clear abdomen NABS soft he is tender in the right side Results & Data Results & Data ([facility]) Vital Signs (Past 12 Hours) Vital Signs Temp Pulse Pulse Pulse Pulse Resp BP 02/01/23 11:32 98.4 F 76 20 143/78 H 02/01/23 07:00 72 02/01/23 07:48 99.0 F 76 19 141/78 H 02/01/23 04:16 98.1 F 79 18 147/77 H Pulse Ox O2 Del Method 02/01/23 11:32 94 Room Air 02/01/23 07:00 02/01/23 07:48 95 Room Air 02/01/23 04:16 96 Room Air Laboratory Results Reviewed CBC Reviewed PRP PG Care Time/CCT Total # of Minutes Spent Total Time Spent with Patient: Total time spent is greater than 50% in coordination of care (as documented) at patient's floor/unit and/or counseling patient: Coding Level of Care Code 87161 SUB INP/OBS CARE 2/35MIN Diagnoses Acute cholecystitis K81.0 DM2 (diabetes mellitus, type 2) E11.9 Prostate cancer C61
[2023-02-01] MEDS: traMADol HCL 50 MG TABLET PO PRN ×2 (13:10→18:44)
[2023-02-01] MEDS ORDERED: ACETAMINOPHEN 500 MG TAB PO PRN (16:30)
[2023-02-01] MEDS: SENNA 8.6 MG TAB PO SCH (21:35)
[2023-02-02] MEDS: PIPERACILLIN/TAZOBACTAM 4.5 GM in DEXTROSE 5% 100 ML IV SCH ×3 (05:39→21:35)
--- NOTE | 2023-02-02 07:25 | Hospitalist Progress Note ---
Date of Service February 02, 2023 Assessment & Plan (1) Acute cholecystitis: Plan: Clinical concerns for acute cholecystitis significant risk to the patient. Patient with sludge and gallbladder thickening on ultrasound. ERCP performed 01/30/[address] Elmer Holder. Increased pain associated adding Ultram to his pain regimen on 02/01/2023 Dr. 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 (2) DM2 (diabetes mellitus, type 2): Plan: Diabetes mellitus-chronic and unstable with n.p.o. status Continue to hold Jardiance Placed on Accu-Cheks with NovoLog coverage per SSI [id number] glucoses reviewed over the last 24 hours and are acceptable (3) Prostate cancer: Plan: Chronic and stable no luts, no treatment Admission and Anticipated Discharge Date Admission Date: January 29, 2023 Subjective still having pain, ruq is tender to exam, able to tolerate some po intake Physical Exam Physical Exam: But appropriate cardiac's regular lungs are clear abdomen NABS soft he is tender in the right side Results & Data Results & Data ([facility]) Vital Signs (Past 12 Hours) Vital Signs Temp Pulse Resp BP Pulse Ox O2 Del Method 02/02/23 07:16 99.0 F 88 16 116/66 92 Room Air 02/01/23 20:31 99.3 F 87 18 126/70 91 Room Air PG Care Time/CCT Total # of Minutes Spent Total Time Spent with Patient: Total time spent is greater than 50% in coordination of care (as documented) at patient's floor/unit and/or counseling patient: Coding Level of Care Code 02579 SUB INP/OBS CARE 2/35MIN Diagnoses Acute cholecystitis K81.0 DM2 (diabetes mellitus, type 2) E11.9 Prostate cancer C61
[2023-02-02] MEDS: PANTOprazole 40 MG in SYRINGE 0 ML IV SCH ×2 (09:39→20:40)
[2023-02-02] MEDS: INSULIN ASPART PER UNIT SC SCH ×4 (09:44→20:40)
--- NOTE | 2023-02-02 11:04 | Surgery Progress Note ---
Date of Service February 02, 2023 Assessment & Plan (1) Ascending cholangitis: Plan: still with pain lap mulu early next week con't abx Admission and Anticipated Discharge Date Admission Date: January 29, 2023 Subjective still having pain Review of Systems Constitutional: + anorexia; no fever and no chills Respiratory: no cough and no dyspnea Cardiovascular: no chest pain Gastrointestinal: + abdominal pain; no nausea, no vomiting and no change in bowel habits Genitourinary: no dysuria Musculoskeletal: + back pain Neurologic: no localized weakness and no generalized weakness Hematologic / Lymphatic: no easy bleeding and no easy bruising Physical Exam Constitutional: WD/WN, vitals as above Eyes: PERRL, conjunctivae normal, anicteric sclerae ENMT: external ear and nose normal, oropharynx normal Neck: trachea midline Respiratory: normal respiratory effort, lungs clear to auscultation Cardiovascular: RRR, no murmur, no edema Gastrointestinal (Abdomen): Inspection/Auscultation: abdomen normal to inspection and normal bowel sounds; abdomen not distended Percussion/Palpation: + abdomen tender and abdomen soft; no guarding and abdomen not rigid Musculoskeletal: Head/Neck/Chest: normocephalic and head atraumatic Skin: no rashes, warm and dry Results & Data ([facility]) Vital Signs (Past 12 Hours) Vital Signs Temp Pulse Pulse Resp BP BP Pulse Ox 02/02/23 08:00 37.5 C 89 17 132/82 93 02/02/23 07:16 37.2 C 88 16 116/66 92 O2 Del Method 02/02/23 08:00 Room Air 02/02/23 07:16 Room Air
[2023-02-02] MEDS: traMADol HCL 50 MG TABLET PO PRN (18:13)
[2023-02-02] MEDS: SENNA 8.6 MG TAB PO SCH (20:40)
[2023-02-03] MEDS: PIPERACILLIN/TAZOBACTAM 4.5 GM in DEXTROSE 5% 100 ML IV SCH ×3 (05:41→22:14)
[2023-02-03 06:26] LABS: Hemoglobin 14.3 g/dl (14.0-18.0); Mean Corpuscular Hemoglobin 30.5 pg (25.0-34.0); Mean Corpuscular Volume 89.6 fL (80.0-100.0); Mean Platelet Volume 9.4 fL (9.4-12.4); Platelet Count 205 K/uL (130-400); RDW Coefficient of Variation 11.9 % (11.5-14.5); RDW Standard Deviation 38.8 fL (36.4-46.3); Red Blood Count 4.69 M/uL (4.70-6.10); White Blood Count 14.76 K/ul (4.8-10.8)
[2023-02-03 06:42] LABS: Albumin Level 2.9 gm/dl (3.4-5.0); Calcium 8.8 mg/dl (8.5-10.1); Creatinine Clr Calc Pharmacy 82.2 ml/min; Est GFR (African American) 103.8 ml/min; Est GFR (Non-African American) 89.6 ml/min; Potassium 3.8 mmol/L (3.5-5.1); Total Protein 5.9 gm/dl (6.0-8.3)
--- NOTE | 2023-02-03 07:00 | Surgery Progress Note ---
Date of Service February 03, 2023 Assessment & Plan (1) Ascending cholangitis: Plan: s/p ERCP, stent For lap mulu, possible robotic per Dr Anaya on 02/05 IV atbx, ultram for pain walk in hallway Admission and Anticipated Discharge Date Admission Date: January 29, 2023 Subjective awake, alert, ultram for pain wants to exercise Review of Systems Review of Systems: All systems reviewed & are unremarkable except as noted in HPI & below Physical Exam Physical Exam: sitting, standing on own rec IV atbx Constitutional: well developed; no acute distress Eyes: + anicteric sclerae Respiratory: normal respiratory effort; no respiratory distress Cardiovascular: Rate/Rhythm: regular rate Gastrointestinal (Abdomen): Inspection/Auscultation: abdomen not distended Musculoskeletal: Head/Neck/Chest: head atraumatic Skin: no rashes, warm and dry Neurologic: awake Psychiatric: Orientation: alert Results & Data ([facility]) Vital Signs (Past 12 Hours) Vital Signs Temp Pulse Resp BP Pulse Ox O2 Del Method 02/02/23 20:58 37.3 C 87 18 111/69 93 Room Air PG Care Time/CCT Total # of Minutes Spent Total Time Spent with Patient: Total time spent is greater than 50% in coordination of care (as documented) at patient's floor/unit and/or counseling patient: Coding Level of Care Code 83997 SUB INP/OBS CARE 12/25MIN Diagnoses Ascending cholangitis K83.09
[2023-02-03] MEDS: INSULIN ASPART PER UNIT SC SCH ×4 (08:30→20:53)
[2023-02-03] MEDS: PANTOprazole 40 MG in SYRINGE 0 ML IV SCH ×2 (08:32→20:04)
--- NOTE | 2023-02-03 14:34 | Hospitalist Progress Note ---
Date of Service February 03, 2023 Assessment & Plan (1) Acute cholecystitis: Plan: Clinical concerns for acute cholecystitis significant risk to the patient. Patient with sludge and gallbladder thickening on ultrasound. ERCP performed 01/30/[address] Elmer Holder. initial risk has mitigated but surgery will be performed this week Increased pain associated adding Ultram to his pain regimen on 02/01/2023 Dr. Anaya is planning on laparoscopic cholecystectomy likely on 02/05/2023 patient continues on antibiotics of Zosyn therapy, he is significantly painful [facility] called, has 4 of 4 blood cultures grow E coli that is sanchez sensitive from 01/29/23 Acute duodenal ulcers without hemorrhage Chronic duodenal ulcer without hemorrhage Patient be on proton pump inhibitor for this. (2) DM2 (diabetes mellitus, type 2): Plan: Diabetes mellitus-chronic and unstable with n.p.o. status Continue to hold Jardiance Placed on Accu-Cheks with NovoLog coverage per SSI [id number] glucoses reviewed over the last 24 hours and are acceptable (3) Prostate cancer: Plan: Chronic and stable no luts, no treatment Admission and Anticipated Discharge Date Admission Date: January 29, 2023 Subjective awake, alert, ultram for pain, stll right upper quadrant pain wants to exercise, waling the halls Physical Exam Physical Exam: But appropriate cardiac's regular lungs are clear abdomen NABS soft he is tender in the right side Results & Data Results & Data ([facility]) Vital Signs (Past 12 Hours) Vital Signs Temp Pulse Resp BP Pulse Ox O2 Del Method 02/03/23 07:51 98.8 F 78 15 110/66 94 Room Air Laboratory Results Reviewed CBC Reviewed PRP I personally found [facility] to collect the results of outpatient blood cultures from 01/29/2023 showing pansensitive E. coli in 4 bottles PG Care Time/CCT Total # of Minutes Spent Total Time Spent with Patient: Total time spent is greater than 50% in coordination of care (as documented) at patient's floor/unit and/or counseling patient: Coding Level of Care Code 80642 SUB INP/OBS CARE 2/35MIN Diagnoses Acute cholecystitis K81.0 DM2 (diabetes mellitus, type 2) E11.9 Prostate cancer C61
--- NOTE | 2023-02-03 14:40 | Hospitalist Progress Note ---
Date of Service February 03, 2023 Assessment & Plan (1) Acute cholecystitis: Plan: Clinical concerns for acute cholecystitis significant risk to the patient. Patient with sludge and gallbladder thickening on ultrasound. ERCP performed 01/30/[address] Elmer Holder. initial risk has mitigated but surgery will be performed this week Increased pain associated adding Ultram to his pain regimen on 02/01/2023 Dr. Anaya is planning on laparoscopic cholecystectomy likely on 02/05/2023 patient continues on antibiotics of Zosyn therapy, he is significantly painful [facility] called, has 4 of 4 blood cultures grow E coli that is sanchez sensitive from 01/29/23- gram negative bacteremia Acute duodenal ulcers without hemorrhage Chronic duodenal ulcer without hemorrhage Patient be on proton pump inhibitor for this. (2) DM2 (diabetes mellitus, type 2): Plan: Diabetes mellitus-chronic and unstable with n.p.o. status Continue to hold Jardiance Placed on Accu-Cheks with NovoLog coverage per SSI [id number] glucoses reviewed over the last 24 hours and are acceptable (3) Prostate cancer: Plan: Chronic and stable no luts, no treatment Admission and Anticipated Discharge Date Admission Date: January 29, 2023 Results & Data Results & Data ([facility]) Vital Signs (Past 12 Hours) Vital Signs Temp Pulse Resp BP Pulse Ox O2 Del Method 02/03/23 07:51 98.8 F 78 15 110/66 94 Room Air PG Care Time/CCT Total # of Minutes Spent Total Time Spent with Patient: Total time spent is greater than 50% in coordination of care (as documented) at patient's floor/unit and/or counseling patient: Coding Level of Care Code None Diagnoses Acute cholecystitis K81.0 DM2 (diabetes mellitus, type 2) E11.9 Prostate cancer C61
[2023-02-03] MEDS: LEVOTHYROXINE SODIUM 75 MCG TABLET PO SCH (14:54)
[2023-02-03] MEDS: SENNA 8.6 MG TAB PO SCH (20:04)
[2023-02-03] MEDS: traMADol HCL 50 MG TABLET PO PRN (23:40)
[2023-02-04] MEDS: PIPERACILLIN/TAZOBACTAM 4.5 GM in DEXTROSE 5% 100 ML IV SCH ×3 (05:55→22:16)
[2023-02-04] MEDS: INSULIN ASPART PER UNIT SC SCH ×4 (08:43→20:43)
[2023-02-04] MEDS: PANTOprazole 40 MG in SYRINGE 0 ML IV SCH ×2 (08:45→20:26)
--- NOTE | 2023-02-04 09:58 | Surgery Progress Note ---
Date of Service February 04, 2023 Assessment & Plan (1) Acute cholecystitis: Plan: pt here with choledocholithiasis s/p ERCP+stent with GI feeling better, still with some RUQ pain. tolerating diet. continues on IV abx on schedule for lap/robotic cholecystectomy tomorrow with Dr. Anaya NPO at midnight Admission and Anticipated Discharge Date Admission Date: January 29, 2023 Subjective Patient doing well. Pain a little bit better. Tolerating diet. Physical Exam Physical Exam: awake/alert, no distress Respiratory: normal respiratory effort Gastrointestinal (Abdomen): Percussion/Palpation: + abdomen tender (discomfort to palpation in the RUQ) and abdomen soft Results & Data ([facility]) Vital Signs (Past 12 Hours) Vital Signs Temp Pulse Resp BP Pulse Ox O2 Del Method 02/04/23 07:01 36.6 C 74 16 112/70 96 Room Air PG Care Time/CCT Total # of Minutes Spent Total Time Spent with Patient: Total time spent is greater than 50% in coordination of care (as documented) at patient's floor/unit and/or counseling patient: Coding Level of Care Code 84048 SUB INP/OBS CARE 1/25MIN Diagnoses Acute cholecystitis K81.0
[2023-02-04] MEDS: LEVOTHYROXINE SODIUM 75 MCG TABLET PO SCH (15:16)
--- NOTE | 2023-02-04 17:55 | Anesthesiology Consultation ---
Date of Service February 04, 2023 Assessment & Plan Chart Review Chart Review: Acceptable Risk for Surgery and Patient NOT seen in Pre Admission Testing Consults Requested none ASA ASA3 Proposed Anesthesia Anesthesia Type: General History Surgery Operation Date: 01/30/23 14:00 Proposed Procedures p Endoscopic Retrograde Cholangiopancreatogram - MD gabby Bethea Laparoscopic Cholecystectomy - Kamlesh Anaya DO, FACS Operation Date: 02/05/23 09:30 Proposed Procedures p Robotic Assisted Laparoscopic Cholecystectomy - Kamlesh Anaya DO, FACS Height/Weight Height: 5 ft 8 in Weight: 76.4 kg Allergies Allergy/AdvReac Type Severity Reaction Status Date / Time finasteride AdvReac Breast Verified 03/31/22 15:29 tenderness Medications Home Medications Medication Instructions Recorded Confirmed Last Taken ascorbic acid (vitamin C) 500 mg 500 mg PO DAILY 10/16/21 01/29/23 03/31/22 capsule calcium carb-ergocalciferol (vit 1 tab PO DAILY 10/16/21 01/29/23 03/31/22 D2) 600 mg calcium-200 unit tablet multivitamin 1 tab PO DAILY 10/16/21 01/29/23 03/31/22 royal jelly 500 mg capsule 500 mg PO TIDWMEAL 03/31/22 01/29/23 03/31/22 cholecalciferol (vitamin D3) 125 125 mcg PO DAILY 10/17/22 01/29/23 Unknown mcg (5,000 unit) capsule vinia 400 mg PO DAILY 10/17/22 01/29/23 Unknown tamsulosin 0.4 mg capsule 0.4 mg PO DAILY Frequency 11/15/22 01/29/23 Unknown aspirin 81 mg chewable tablet 81 mg PO Q OTHER DAY 01/29/23 01/29/23 Unknown empagliflozin 10 mg tablet 10 mg PO DAILY 01/29/23 01/29/23 01/29/23 (Jardiance) Active Medications Generic Name Dose Route Start Last Admin Trade Name Freq PRN Reason Stop Dose Admin Piperacillin Sod/Tazobactam 120 mls @ 30 mls/hr 01/30/23 06:00 02/04/23 15:18 Sod 4.5 gm/ Dextrose IV 02/09/23 05:59 30 mls/hr Q8H CRYSTAL Administration Protocol Pantoprazole Sodium 40 mg/ 10 mls @ 5 mls/min 01/30/23 21:00 02/04/23 08:45 Syringe IV 03/01/23 20:59 5 mls/min BID CRYSTAL Administration Insulin Aspart 0 units 01/30/23 07:30 02/04/23 17:47 Insulin Aspart Per Unit SC 03/01/23 07:29 4 units ACHS CRYSTAL Administration Levothyroxine Sodium 75 mcg 02/03/23 14:00 02/04/23 15:16 Levothyroxine Sodium 75 Mcg Tablet PO 03/05/23 13:59 75 mcg DAILY@1400 CRYSTAL Administration Ondansetron HCl 4 mg 01/29/23 22:31 01/30/23 08:17 Ondansetron Inj 2 Mg/Ml 2 Ml Vial IV 02/28/23 22:30 4 mg Q6H PRN Administration Nausea Sennosides 17.2 mg 02/01/23 21:00 02/03/23 20:04 Senna 8.6 Mg Tab PO 03/03/23 20:59 17.2 mg PM CRYSTAL Administration Tramadol HCl 50 mg 02/01/23 12:29 02/03/23 23:40 Tramadol Hcl 50 Mg Tablet PO 03/03/23 12:29 50 mg Q4H PRN Administration Moderate Pain (Scale 4, 5, 6) Past Medical History Medical History Ascending cholangitis Elevated blood pressure reading without diagnosis of hypertension Osteoarthritis Prostate cancer (09/07/21) Sleep apnea Exercise / Class Metabolic Activity III < 4 Walking/Shop/Light housework Past Family History Family History Mother , in her 90s Natural with unknown cause Father , 93yo No problems noted. Brother Family history unknown Brother Family history unknown Brother Suicide Sister Family history unknown Sister Family history unknown Son No problems noted. Daughter No problems noted. Past Surgical History Surgical History H/O left inguinal hernia repair H/O umbilical hernia repair Past Anesthesia History No Hx of Anesthesia Complications and No Family Hx of Anesthesia Complications History of PONV No Hx of PONV and No Hx of Motion Sickness Social History Smoking Status: Former smoker Hx Alcohol Use: No Hx Substance Use: No Physical Exam Vital Signs Last Vital Signs Temp 36.7 C 02/04/23 15:05 Pulse 78 02/04/23 15:05 Resp 16 02/04/23 15:05 BP 114/72 02/04/23 15:05 Pulse Ox 94 02/04/23 15:05 O2 Del Method Room Air 02/04/23 15:05 O2 Flow Rate 3 01/30/23 17:05 Testing Laboratory Results 02/03/23 05:42 02/03/23 05:42 PT 11.3 Seconds (9.0-12.0) 01/31/23 07:07 INR 1.1 (0.9-1.1) 01/31/23 07:07 APTT 29.6 Seconds (21.0-31.0) 01/31/23 07:07 02/04/23 02/04/23 02/04/23 17:04 11:55 08:00 POC Glucose 104 H 209 H 143 H Electrocardiogram Date: 03/31/22 Findings: + NSR @ (@ 88) Chest X-Ray Date: 03/31/22 Findings: + NAD and + atherosclerosis of thoracic aorta Echocardiogram Date: 04/01/22 EF: 55% LV Function: normal RWMA: + none Valvular Disease: + no significant valvular disease
--- NOTE | 2023-02-04 18:25 | Hospitalist Progress Note ---
Date of Service February 04, 2023 Assessment & Plan (1) Acute cholecystitis: Plan: Clinical concerns for acute cholecystitis significant risk to the patient. Patient with sludge and gallbladder thickening on ultrasound. ERCP performed 01/30/[address] Elmer Holder. initial risk has mitigated but surgery will be performed this week Increased pain associated adding Ultram to his pain regimen on 02/01/2023 Dr. Anaya is planning on laparoscopic cholecystectomy likely on 02/05/2023 patient continues on antibiotics of Zosyn therapy, he is significantly painful [facility] called, has 4 of 4 blood cultures grow E coli that is sanchez sensitive from 01/29/23- gram negative bacteremia Acute duodenal ulcers without hemorrhage Chronic duodenal ulcer without hemorrhage Patient be on proton pump inhibitor for this. (2) DM2 (diabetes mellitus, type 2): Plan: Diabetes mellitus-chronic and unstable with n.p.o. status Continue to hold Jardiance Placed on Accu-Cheks with NovoLog coverage per SSI [id number] glucoses reviewed over the last 24 hours and are acceptable (3) Prostate cancer: Plan: Chronic and stable no luts, no treatment Admission and Anticipated Discharge Date Admission Date: January 29, 2023 Subjective Patient doing well. Pain a little bit better. Tolerating diet. Physical Exam Physical Exam: cardiac's regular lungs are clear abdomen NABS soft he is tender in the right side Results & Data Results & Data ([facility]) Vital Signs (Past 12 Hours) Vital Signs Temp Pulse Resp BP BP Pulse Ox O2 Del Method 02/04/23 15:05 98.1 F 78 16 114/72 94 Room Air 02/04/23 07:01 97.9 F 74 16 112/70 96 Room Air PG Care Time/CCT Total # of Minutes Spent Total Time Spent with Patient: Total time spent is greater than 50% in coordination of care (as documented) at patient's floor/unit and/or counseling patient: Coding Level of Care Code 11239 SUB INP/OBS CARE 2/35MIN Diagnoses Acute cholecystitis K81.0 DM2 (diabetes mellitus, type 2) E11.9 Prostate cancer C61
[2023-02-04] MEDS: SENNA 8.6 MG TAB PO SCH (20:26)
[2023-02-05] MEDS: PIPERACILLIN/TAZOBACTAM 4.5 GM in DEXTROSE 5% 100 ML IV SCH ×3 (05:43→22:10)
[2023-02-05] MEDS ORDERED: Nursing to Pharmacy Communication SCH (05:45)
[2023-02-05] MEDS: INSULIN ASPART PER UNIT SC SCH ×4 (06:06→21:10)
[2023-02-05] MEDS ORDERED: INDOCYANINE GREEN 25 MG VIAL INJ SCH (08:00)
[2023-02-05] MEDS ORDERED: ATROPINE SULFATE 0.1 MG/ML 10ML SYR IV PRN (08:50)
[2023-02-05] MEDS ORDERED: fentaNYL citrate PF 100 MCG/2 ML VIAL IV PRN (08:50)
[2023-02-05] MEDS ORDERED: ONDANSETRON INJ 2 MG/ML 2 ML VIAL IV PRN (08:50)
[2023-02-05] MEDS ORDERED: ePHEDrine sulfate 50 MG/ML AMP IV PRN (08:50)
--- NOTE | 2023-02-05 09:36 | Surgery Progress Note ---
Date of Service February 05, 2023 Assessment & Plan (1) Ascending cholangitis: Plan: 77year old male with cholecystitis, choledocholithiasis, and cholangitis status post ERCP plan for robotic assisted laparoscopic cholecystectomy with possible cholangiogram risks discussed to include but not limited to bleeding, infection, retained stone, bile leak, open surgery, damage to surrounding structures including bile duct, need for future or more extensive surgery, failure to treat symptoms, and risks of anesthesia. (2) Acute cholecystitis: Admission and Anticipated Discharge Date Admission Date: January 29, 2023 Subjective 77-year-old male admitted with cholecystitis, choledocholithiasis, and cholangitis status post ERCP several days ago. He also had bacteremia consistent with his presentation. He has been doing well and feels better than he has in several days. He was still in pain and being treated for his bacteremia and has remained in the hospital. Physical Exam Constitutional: WD/WN, vitals as above Gastrointestinal (Abdomen): normal bowel sounds, soft, nontender, no hepatosplenomegaly Results & Data ([facility]) Vital Signs (Past 12 Hours) Vital Signs Temp Pulse Resp BP BP Pulse Ox O2 Del Method 02/05/23 08:18 36.7 C 90 20 140/83 95 Room Air 02/05/23 07:31 36.5 C 80 16 111/67 95 Room Air PG Care Time/CCT Total # of Minutes Spent Total Time Spent with Patient: Total time spent is greater than 50% in coordination of care (as documented) at patient's floor/unit and/or counseling patient: Coding Level of Care Code 10802 SUB INP/OBS CARE 25MIN Diagnoses Ascending cholangitis K83.09 Acute cholecystitis K81.0
[2023-02-05] MEDS ORDERED: BUPIVACAINE 0.5 % 5 MG/1 ML MPF 30ML VIAL ONE (09:51)
[2023-02-05] MEDS: PANTOprazole 40 MG in SYRINGE 0 ML IV SCH ×2 (10:35→21:10)
--- NOTE | 2023-02-05 12:37 | Operative Report ---
PG Post Operative Report Pre & Post Diagnosis Operation Date: 02/05/23 09:30 Pre-Op Diagnosis: Ascending cholangitis Post-Op Diagnosis: Acute gangrenous cholecystitis I identified the patient and participated in the time-out.: Yes Procedure Operation Date: 02/05/23 09:30 Actual Procedures p Robotic Assisted Laparoscopic Cholecystectomy(Not Applicable) - Kamlesh Anaya DO, EDER Surgeon Kamlesh Anaya DO, EDER Steam Blocker Alexandra Mckeon Estimated Blood Loss 50 Findings Consistent with Post-Op Diagnosis (Choledocholithiasis and acute cholangitis. CBD stent placed) Distended gallbladder with adhesions to abdominal wall in the right upper quadrant taken down bluntly. Omentum densely adhesed to gallbladder, fibrinous exudate along abdominal wall and omentum. Gallbladder wall appeared severely i nflamed and portions appeared gangrenous. Spillage of bile that appeared to reflect empyema. No ICG filling the gallbladder, common bile duct identified. Cystic duct and artery identified, critical view of safety obtained, cystic duct and artery doubly clipped and divided. Gallbladder intrahepatic, portion of posterior wall left in place with fulguration. Good hemostasis, drain placed. Specimens Gallbladder Drains 10 mm MER drain gallbladder fossa Anesthesia Type General Complications none Disposition Accompanied Patient To Recovery: No Disposition: Recovery Room Indications 77-year-old male transferred from outside facility for cholecystitis, choledocholithiasis and cholangitis. He underwent an ERCP several days ago which showed cholangitis. His blood cultures showed bacteremia. He was continued on IV antibiotics, and plan for robotic assisted laparoscopic cholecystectomy with possible cholangiogram. The risks of the procedure were discussed, all questions were answered, and the patient agreed to proceed with surgery as planned. Description of Procedure The patient was properly identified, consented, and taken to the operating room where he was placed in the supine position. 2.5 mg of indocyanine green were administered IV approximately 45 min prior to the surgery. General endotracheal anesthesia was induced. SCDs and a safety belt were placed. Preoperative antibiotics were administered. The patient's abdomen was prepped and draped in the standard sterile fashion. A surgical timeout was performed and all parties were in agreement that this was the correct patient and procedure to be performed and we continued as planned. An incision was made just above the umbilicus and to the left of midline. Veress needle was inserted and saline drop test confirmed entry to the abdomen. The abdomen was insufflated with carbon dioxide which the patient tolerated incident. Veress needle was removed and the abdomen is entered using the Optiview technique and a 5 mm camera. The introducer was removed and the abdomen inspected. No damage from initial trocar placement or Veress needle placement was identified. There were no significant abnormalities to the 4 quadrants of the abdomen. The gallbladder appeared very distended and there were adhesions to the abdominal wall in the right upper quadrant. It was encased in omentum. 8 mm robotic ports were then placed on the left and right. An additional 5 mm administrative personal assistant port was placed in the lateral right subcostal position. The patient was placed in reverse Trendelenburg position and rotated towards the left. The robot was then docked and the camera and robotic instruments were inserted. The adhesions to the abdominal were taken down with blunt dissection. There was fibrinous exudate along this area. The omentum was densely adherent to the gallbladder wall. This was taken down with blunt dissection and with electrocautery. The entire area was quite friable and oozed during the case. The gallbladder was significantly inflamed and appeared to have patches of gangrenous tissue. The dome of the gallbladder was grasped by the administrative personal assistant and retracted towards the left upper quadrant and the infundibulum was retracted toward the right lower quadrant revealing Calot's triangle. During retraction tear was created in the gallbladder wall and purulent bilious drainage was released. This was suctioned and the area was copiously irrigated. 1 or 2 small stones were spilled and retrieved. Peritoneal attachments were taken down with electrocautery and blunt dissection. Firefly was turned on and the gallbladder was not filling with ICG confirming acute on chronic cholecystitis. I was able to identify the common bile duct with the firefly. The cystic duct and artery were circumferentially dissected. A window of safety was obtained showing the cystic duct entering the gallbladder with no aberrant structures noted. The cystic duct and artery were doubly clipped and divided. The gallbladder was then lifted off the gallbladder fossa with electrocautery. The gallbladder was intrahepatic and it was difficult to obtain a good plane. Near the dome of the gallbladder portion of the posterior wall was left to avoid bleeding. This was then fulgurated with electrocautery. The right upper quadrant was irrigated and hemostasis was found to be good. The gallbladder was placed in an Endo Catch bag and removed through the one of the port sites. A 10 mm MER drain was then placed in the gallbladder fossa and exited through the right upper quadrant. It was secured in place with a 2-0 nylon suture. The instruments were removed and the robot was undocked. The trochars were removed and the abdomen was allowed to collapse. The left sided extraction site for the gallbladder needed to be open slightly, and the fascia was closed with an interrupted 0 Vicryl [id number] suture. The skin of all ports was closed with 4-0 Monocryl subcuticular sutures. Dermabond was placed over the wounds. A drain dressing was placed over the drain exit site. The patient was extubated in the operating room and taken to the PACU where he recovered without apparent incident. All sponge, instrument and needle counts were correct at the conclusion of the procedure. The patient tolerated the procedure well. The physician's administrative personal assistant was present and scrubbed for the entirety of the case and was essential in positioning the patient, prepping and draping, retraction and exposure, driving the laparoscope, exchange of the robotic instruments removal of the gallbladder, closure of the incisions, and placement of the dressings. I attest to the content of the Intraoperative Record and any orders documented therein. Any exceptions are noted below.
--- NOTE | 2023-02-05 14:01 | Anesthesiology Progress Note ---
Date of Service February 05, 2023 Anesthesia Post Procedure Vital Signs Vital Signs: Temp Pulse Pulse Resp BP BP Pulse Ox 02/05/23 13:45 94 H 21 153/80 H 95 02/05/23 13:35 36.8 C 90 22 161/80 H 93 02/05/23 13:25 87 20 139/95 95 02/05/23 13:15 86 28 H 147/81 H 94 02/05/23 13:05 85 26 H 151/83 H 93 02/05/23 12:55 82 17 148/83 H 96 02/05/23 12:45 75 22 148/97 H 97 02/05/23 12:36 36.3 C L 70 16 123/69 98 02/05/23 08:18 36.7 C 90 20 140/83 95 02/05/23 07:31 36.5 C 80 16 111/67 95 02/04/23 20:25 37 C 84 16 118/71 93 02/04/23 15:05 36.7 C 78 16 114/72 94 O2 Del Method O2 Flow Rate 02/05/23 13:45 Nasal Cannula 2 02/05/23 13:35 Nasal Cannula 2 02/05/23 13:25 Nasal Cannula 2 02/05/23 13:15 Nasal Cannula 2 02/05/23 13:05 Room Air 02/05/23 12:55 Oxymask 5 02/05/23 12:45 Oxymask 8 02/05/23 12:36 Oxymask 8 02/05/23 08:18 Room Air 02/05/23 07:31 Room Air 02/04/23 20:25 Room Air 02/04/23 15:05 Room Air Pain Intensity Right Upper Abdomen: Pain Intensity: 2 Right Lower Abdomen: Pain Intensity: 2 Abdomen: Pain Intensity: 4 Transfer of Care Handoff Completed per policy Notes Mental Status: alert / awake / arousable and participated in evaluation Nausea / Vomiting: adequately controlled Pain: adequately controlled Airway Patency, RR, SpO2: stable & adequate BP & HR: stable & adequate Hydration State: stable & adequate Anesthetic Complications: no major complications apparent and Pt Satisfied with anesthetic care
[2023-02-05] MEDS: LACTATED RINGER'S 1,000 ML IV SCH (14:22)
--- NOTE | 2023-02-05 17:29 | Hospitalist Progress Note ---
Date of Service February 05, 2023 Assessment & Plan (1) Acute cholecystitis: Plan: Clinical concerns for acute cholecystitis significant risk to the patient. Patient with sludge and gallbladder thickening on ultrasound. ERCP performed 01/30/[address] Elmer Holder. initial risk has mitigated but surgery will be performed this week Increased pain associated adding Ultram to his pain regimen on 02/01/2023 Dr. Anaya performed laparoscopic cholecystectomy likely on 02/05/2023 now postoperative evaluation for resumption of bowel function patient continues on antibiotics of Zosyn therapy, he is significantly painful [facility] called, has 4 of 4 blood cultures grow E coli that is sanchez sensitive from 01/29/23- gram negative bacteremia Acute duodenal ulcers without hemorrhage Chronic duodenal ulcer without hemorrhage Patient be on proton pump inhibitor for this. (2) DM2 (diabetes mellitus, type 2): Plan: Diabetes mellitus-chronic and unstable with n.p.o. status Continue to hold Jardiance Placed on Accu-Cheks with NovoLog coverage per SSI [id number] glucoses reviewed over the last 24 hours and are acceptable (3) Prostate cancer: Plan: Chronic and stable no luts, no treatment Admission and Anticipated Discharge Date Admission Date: January 29, 2023 Subjective 77-year-old male admitted with cholecystitis, choledocholithiasis, and cholangitis status post ERCP several days ago. He also had bacteremia consistent with his presentation. He has been doing well and feels better than he has in several days. This post laparoscopic cholecystectomy on 02/05/2023 with gangrenous cholecystitis noted Physical Exam Physical Exam: cardiac's regular lungs are clear abdomen NABS soft he is tender in the right side Results & Data Results & Data ([facility]) Vital Signs (Past 12 Hours) Vital Signs Temp Pulse Pulse Resp BP BP Pulse Ox 02/05/23 14:45 97.9 F 102 H 17 144/81 H 95 02/05/23 15:15 104 H 18 142/82 H 94 02/05/23 14:18 97.9 F 93 H 18 142/81 H 95 02/05/23 14:00 95 H 21 152/78 H 94 02/05/23 13:45 94 H 21 153/80 H 95 02/05/23 13:35 98.2 F 90 22 161/80 H 93 02/05/23 13:25 87 20 139/95 95 03/08/23 13:15 86 28 H 147/81 H 94 02/05/23 13:05 85 26 H 151/83 H 93 02/05/23 12:55 82 17 148/83 H 96 02/05/23 12:45 75 22 148/97 H 97 02/05/23 12:36 97.3 F L 70 16 123/69 98 02/05/23 08:18 98.1 F 90 20 140/83 95 02/05/23 07:31 97.7 F 80 16 111/67 95 O2 Del Method O2 Flow Rate 02/05/23 14:45 Nasal Cannula 1 02/05/23 15:15 Nasal Cannula 2 02/05/23 14:18 Nasal Cannula 2 02/05/23 14:00 Nasal Cannula 2 02/05/23 13:45 Nasal Cannula 2 02/05/23 13:35 Nasal Cannula 2 02/05/23 13:25 Nasal Cannula 2 02/05/23 13:15 Nasal Cannula 2 02/05/23 13:05 Room Air 02/05/23 12:55 Oxymask 5 02/05/23 12:45 Oxymask 8 02/05/23 12:36 Oxymask 8 02/05/23 08:18 Room Air 02/05/23 07:31 Room Air Laboratory Results Reviewed [id number] glucoses PG Care Time/CCT Total # of Minutes Spent Total Time Spent with Patient: Total time spent is greater than 50% in coordination of care (as documented) at patient's floor/unit and/or counseling patient: Coding Level of Care Code 27733 SUB INP/OBS CARE 235MIN Diagnoses Acute cholecystitis K81.0 DM2 (diabetes mellitus, type 2) E11.9 Prostate cancer C61
[2023-02-05] MEDS: LEVOTHYROXINE SODIUM 75 MCG TABLET PO SCH (18:17)
[2023-02-05] MEDS: SENNA 8.6 MG TAB PO SCH (21:10)
[2023-02-05] MEDS: TAMSULOSIN HCL 0.4 MG CAP PO SCH (21:10)
[2023-02-06] MEDS: traMADol HCL 50 MG TABLET PO PRN ×2 (00:53→14:47)
[2023-02-06] MEDS: MoRPHine SULFATE 4 MG/ML 1 ML CARP\\VIAL IV PRN ×2 (01:25→15:47)
[2023-02-06] MEDS: ONDANSETRON INJ 2 MG/ML 2 ML VIAL IV PRN (01:26)
[2023-02-06] MEDS: LACTATED RINGER'S 1,000 ML IV SCH ×2 (02:35→18:23)
[2023-02-06] MEDS: PIPERACILLIN/TAZOBACTAM 4.5 GM in DEXTROSE 5% 100 ML IV SCH ×3 (05:13→22:00)
[2023-02-06 09:01] LABS: Basophils # (auto) 0.15 K/uL (0-0.2); Basophils % (auto) 0.9 %; Eosinophils # (auto) 0.01 K/uL (0-0.50); Eosinophils % (auto) 0.1 %; Hematocrit (blood only) 43.3 % (42.0-52.0); Hemoglobin 14.7 g/dl (14.0-18.0); Immature Granulocytes # (auto) 0.63 K/uL (0.01-0.20); Immature Granulocytes % (auto) 3.8 %; Lymphocytes # (auto) 1.16 K/uL (1.2-3.4); Lymphocytes % (auto) 7.1 %; Mean Corpuscular Hemoglobin 30.4 pg (25.0-34.0); Mean Corpuscular Hgb Conc 33.9 g/dL (32.0-36.0); Mean Corpuscular Volume 89.5 fL (80.0-100.0); Monocytes # (auto) 1.08 K/uL (0.11-0.59); Monocytes % (auto) 6.6 %; Neutrophils # (auto) 13.37 K/uL (1.40-6.50); Neutrophils % (auto) 81.5 %; Platelet Count 408 K/uL (130-400); RDW Coefficient of Variation 11.9 % (11.5-14.5); RDW Standard Deviation 39.1 fL (36.4-46.3); Red Blood Count 4.84 M/uL (4.70-6.10)
[2023-02-06] MEDS: INSULIN ASPART PER UNIT SC SCH ×4 (09:08→21:10)
[2023-02-06 09:15] LABS: BUN Creatinine Ratio 13.4 (10-20); Bilirubin Direct 0.3 mg/dl (0-0.2); Calcium 8.5 mg/dl (8.5-10.1); Creatinine Clr Calc Pharmacy 62.7 ml/min; Est GFR (African American) 87.5 ml/min; Est GFR (Non-African American) 75.5 ml/min; Total Protein 6.3 gm/dl (6.0-8.3)
[2023-02-06] MEDS: PANTOprazole 40 MG in SYRINGE 0 ML IV SCH ×2 (09:54→21:10)
[2023-02-06] MEDS: TAMSULOSIN HCL 0.4 MG CAP PO SCH ×2 (09:54→20:37)
--- NOTE | 2023-02-06 10:32 | Surgery Progress Note ---
Date of Service February 06, 2023 Assessment & Plan (1) Acute cholecystitis: Plan: POD#1 robotic laparoscopic cholecystectomy for gangrenous cholecystitis wbc 16, lfts okay. vitals stable continue on IV abx advance diet as tolerates miranda drain serosang oob as tolerates continue pain control Admission and Anticipated Discharge Date Admission Date: January 29, 2023 Supervising Physician Co-Signing Physician Notes Patient seen and examined, agree with above. POD #1 robotic cholecystectomy for acute cholecystitis with recent history of choledocholithiasis and cholangitis status post ERCP last week. [place] yet better yesterday prior to surgery, with pain controlled. He is tolerating his diet. On exam afebrile stable vitals. His abdomen is soft, probably tender to palpation, port sites without infection. MIRANDA serosanguineous. WBC 16. T. bili normal. Continue IV antibiotics, repeat blood cultures pending. Potential discharge in next day or 2. Subjective Patient doing okay overall. No n/v. Tolerating clears, hungry for more. expected post op pain, currently manageable. Had some issues with frequency overnight and flomax has been resumed. Physical Exam Physical Exam: awake/alert, no distress Gastrointestinal (Abdomen): Inspection/Auscultation: + abdominal surgical incision (c/d/i with skin glue, no signs of infection) and + abdominal surgical drain present (serosang ); abdomen not distended Percussion/Palpation: + abdomen tender (expected ttp in ruq) and abdomen soft Results & Data ([facility]) Vital Signs (Past 12 Hours) Vital Signs Temp Pulse Resp BP Pulse Ox O2 Del Method 02/06/23 07:35 36.8 C 90 16 107/69 92 Room Air 02/06/23 03:25 37.5 C 101 H 18 117/72 96 Room Air 02/05/23 23:18 36.5 C 95 H 16 123/76 95 Room Air PG Care Time/CCT Total # of Minutes Spent Total Time Spent with Patient: Total time spent is greater than 50% in coordination of care (as documented) at patient's floor/unit and/or counseling patient: Coding Level of Care Code None Diagnoses Acute cholecystitis K81.0
[2023-02-06] MEDS: LEVOTHYROXINE SODIUM 75 MCG TABLET PO SCH (15:58)
--- NOTE | 2023-02-06 20:27 | Hospitalist Progress Note ---
Date of Service February 06, 2023 Assessment & Plan (1) Acute cholecystitis: Plan: Clinical concerns for acute cholecystitis significant risk to the patient. Patient with sludge and gallbladder thickening on ultrasound. ERCP performed 01/30/[address] Elmer Holder. initial risk has mitigated but surgery will be performed this week Increased pain associated adding Ultram to his pain regimen on 02/01/2023 Dr. Anaya performed laparoscopic cholecystectomy likely on 02/05/2023 now postoperative evaluation for resumption of bowel function patient continues on antibiotics of Zosyn therapy, he is significantly painful [facility] called, has 4 of 4 blood cultures grow E coli that is sanchez sensitive from 01/29/23- gram negative bacteremia s/p cholecystectomy Acute duodenal ulcers without hemorrhage Chronic duodenal ulcer without hemorrhage Patient be on proton pump inhibitor for this. (2) DM2 (diabetes mellitus, type 2): Plan: Diabetes mellitus-chronic and unstable with n.p.o. status Continue to hold Jardiance Placed on Accu-Cheks with NovoLog coverage per [facility]SI [id number] glucoses reviewed over the last 24 hours and are acceptable (3) Prostate cancer: Plan: Chronic and stable no luts, no treatment Admission and Anticipated Discharge Date Admission Date: January 29, 2023 Subjective Patient reports feeling well. He has no new complaints. Review of Systems Review of Systems: All systems reviewed & are unremarkable except as noted in HPI & below Physical Exam Physical Exam: Patient sitting upright in no acute distress cardiac's regular lungs are clear abdomen NABS soft he is tender in the right side Results & Data Results & Data ([facility]) Vital Signs (Past 12 Hours) Vital Signs Temp Pulse Resp BP Pulse Ox O2 Del Method 02/06/23 14:24 37.1 C 82 17 109/69 97 Room Air 02/06/23 11:53 36.7 C 90 17 102/64 96 Room Air PG Care Time/CCT Total # of Minutes Spent Total Time Spent with Patient: Total time spent is greater than 50% in coordination of care (as documented) at patient's floor/unit and/or counseling patient: Coding Level of Care Code 08338 SUB INP/OBS CARE 2/35MIN Diagnoses Acute cholecystitis K81.0 DM2 (diabetes mellitus, type 2) E11.9 Prostate cancer C61
[2023-02-06] MEDS: SENNA 8.6 MG TAB PO SCH (20:37)
[2023-02-07] MEDS: PIPERACILLIN/TAZOBACTAM 4.5 GM in DEXTROSE 5% 100 ML IV SCH ×3 (06:05→21:46)
[2023-02-07] MEDS: MoRPHine SULFATE 4 MG/ML 1 ML CARP\\VIAL IV PRN ×2 (06:39→14:04)
[2023-02-07] MEDS: TAMSULOSIN HCL 0.4 MG CAP PO SCH ×2 (09:11→21:45)
[2023-02-07] MEDS: PANTOprazole 40 MG in SYRINGE 0 ML IV SCH ×2 (09:12→21:46)
[2023-02-07] MEDS: INSULIN ASPART PER UNIT SC SCH ×4 (09:17→21:46)
[2023-02-07] MEDS: LACTATED RINGER'S 1,000 ML IV SCH (10:28)
[2023-02-07 10:29] LABS: Basophils # (auto) 0.13 K/uL (0-0.2); Basophils % (auto) 0.7 %; Eosinophils # (auto) 0.13 K/uL (0-0.50); Eosinophils % (auto) 0.7 %; Hematocrit (blood only) 42.3 % (42.0-52.0); Hemoglobin 14.3 g/dl (14.0-18.0); Immature Granulocytes # (auto) 0.79 K/uL (0.01-0.20); Immature Granulocytes % (auto) 4.3 %; Lymphocytes # (auto) 1.11 K/uL (1.2-3.4); Mean Corpuscular Hemoglobin 30.6 pg (25.0-34.0); Mean Corpuscular Hgb Conc 33.8 g/dL (32.0-36.0); Mean Corpuscular Volume 90.4 fL (80.0-100.0); Monocytes # (auto) 0.97 K/uL (0.11-0.59); Monocytes % (auto) 5.3 %; Neutrophils # (auto) 15.23 K/uL (1.40-6.50); Platelet Count 381 K/uL (130-400); RDW Coefficient of Variation 11.7 % (11.5-14.5); RDW Standard Deviation 38.9 fL (36.4-46.3); Red Blood Count 4.68 M/uL (4.70-6.10); White Blood Count 18.36 K/ul (4.8-10.8)
[2023-02-07 10:43] LABS: Bilirubin,Total 1.1 mg/dl (0.2-1.0); Calcium 8.4 mg/dl (8.5-10.1); Potassium 3.9 mmol/L (3.5-5.1)
[2023-02-07 10:49] LABS: Albumin Globulin Ratio 0.9 (0.9-2); BUN Creatinine Ratio 12.8 (10-20); C Reactive Protein 21.22 mg/dl (0-0.5); Creatinine Clr Calc Pharmacy 64.7 ml/min; Est GFR (African American) 90.9 ml/min; Est GFR (Non-African American) 78.4 ml/min; Globulin 3.3 gm/dl (2.5-4.0); Total Protein 6.3 gm/dl (6.0-8.3)
--- NOTE | 2023-02-07 11:43 | Surgery Progress Note ---
Date of Service February 07, 2023 Assessment & Plan (1) Acute cholecystitis: Plan: POD#2 robotic laparoscopic cholecystectomy for gangrenous cholecystitis, s/p ERCP this admission for cholangitis wbc 18,vitals stable. continue on IV abx while in house on reg diet miranda drain serosang. incisions c/d/i without evidence of infection. reports intermittent bouts of abdominal pain, will continue to monitor oob as tolerates....would likely benefit from some PT/OT continue pain control Keep miranda drain in place, can f/u in clinic next week for removal Admission and Anticipated Discharge Date Admission Date: January 29, 2023 Supervising Physician Co-Signing Physician Notes pnt discussed with KATELIN Schrader, agree with above. s/p ercp for with stent placement for cholangitis, POD#2 robotic cholecystectomy. AFVSS, abd exam unremarkable, drain ss. wbc 18 from 16, tbili stable. diet as tolerated, will remove drain next week in clinic or on Friday if still in house. continue abx, will transition to PO if discharged. Subjective Patient doing okay. Reports tolerating a diet, but has some mild nausea. Intermittent bouts of abdominal pain that come and go. Physical Exam Physical Exam: awake/alert, no distress. appears weak Respiratory: normal respiratory effort Gastrointestinal (Abdomen): Inspection/Auscultation: + abdominal surgical incision (c/d/i no signs of infection) and + abdominal surgical drain present (serousang); abdomen not distended Percussion/Palpation: + abdomen tender (expected chary incisional and RUQ discomfort to palpation ) and abdomen soft Results & Data ([facility]) Vital Signs (Past 12 Hours) Vital Signs Temp Pulse Resp BP Pulse Ox O2 Del Method 02/07/23 07:57 36.9 C 92 H 16 122/72 97 Room Air PG Care Time/CCT Total # of Minutes Spent Total Time Spent with Patient: Total time spent is greater than 50% in coordination of care (as documented) at patient's floor/unit and/or counseling patient: Coding Level of Care Code 45788 Post Operative Follow-Up Diagnoses Acute cholecystitis K81.0
[2023-02-07] MEDS: traMADol HCL 50 MG TABLET PO PRN (11:45)
[2023-02-07] MEDS: LEVOTHYROXINE SODIUM 75 MCG TABLET PO SCH (13:34)
--- NOTE | 2023-02-07 21:19 | Hospitalist Progress Note ---
Date of Service February 07, 2023 Assessment & Plan (1) Acute cholecystitis: Plan: Clinical concerns for acute cholecystitis significant risk to the patient. Patient with sludge and gallbladder thickening on ultrasound. ERCP performed 01/30/[address] Elmer Holder. initial risk has mitigated but surgery will be performed this week Increased pain associated adding Ultram to his pain regimen on 02/01/2023 Dr. Anaya performed laparoscopic cholecystectomy likely on 02/05/2023 now postoperative evaluation for resumption of bowel function patient continues on antibiotics of Zosyn therapy, he is significantly painful [facility] called, has 4 of 4 blood cultures grow E coli that is sanchez sensitive from 01/29/23- gram negative bacteremia s/p cholecystectomy Acute duodenal ulcers without hemorrhage Chronic duodenal ulcer without hemorrhage Patient be on proton pump inhibitor for this. Patient is aferbrile. will continue to monitor for at least 72 hours post surgery. Patient also has a higher WBC, a slightly increased bilirubin CRP is also elevated, however, do not have a comparison. will recheck on 02/08 Given is complicated course, patient will remain hospitalized. Discussed with surgeon. (2) DM2 (diabetes mellitus, type 2): Plan: Diabetes mellitus-chronic and unstable with n.p.o. status Continue to hold Jardiance Placed on Accu-Cheks with NovoLog coverage per [facility]SI [id number] glucoses reviewed over the last 24 hours and are acceptable (3) Prostate cancer: Plan: Chronic and stable no luts, no treatment Admission and Anticipated Discharge Date Admission Date: January 29, 2023 Subjective Patient reports having abdominal pain. It was a 6/10 earlier today, but it is now a 3 out of 10. Review of Systems Review of Systems: All systems reviewed & are unremarkable except as noted in HPI & below Physical Exam Physical Exam: Patient sitting upright in no acute distress cardiac's regular lungs are clear abdomen NABS soft he is tender in the right side Results & Data Results & Data ([facility]) Vital Signs (Past 12 Hours) Vital Signs Temp Pulse Resp BP Pulse Ox O2 Del Method 02/07/23 20:07 37.2 C 90 18 115/63 91 Room Air 02/07/23 15:10 95 Room Air 02/07/23 15:07 36.8 C 97 H 16 118/75 93 Room Air 02/07/23 12:46 Room Air PG Care Time/CCT Total # of Minutes Spent Total Time Spent with Patient: Total time spent is greater than 50% in coordination of care (as documented) at patient's floor/unit and/or counseling patient: Coding Level of Care Code 06405 SUB INP/OBS CARE 3/50MIN Diagnoses Acute cholecystitis K81.0 DM2 (diabetes mellitus, type 2) E11.9 Prostate cancer C61
[2023-02-07] MEDS: SENNA 8.6 MG TAB PO SCH (21:45)
[2023-02-08] MEDS: PIPERACILLIN/TAZOBACTAM 4.5 GM in DEXTROSE 5% 100 ML IV SCH ×3 (05:46→20:53)
[2023-02-08] MEDS: LACTATED RINGER'S 1,000 ML IV SCH (05:52)
--- NOTE | 2023-02-08 07:47 | Surgery Progress Note ---
Date of Service February 08, 2023 Assessment & Plan (1) Acute cholecystitis: Plan: 02/08/2023 POD #3 Robotic laparoscopic cholecystectomy for gangrenous cholecystitis, s/p ERCP this admission for cholangitis He is tolerating a regular diet, denies abdominal pain, and is moving his bowels. MIRANDA drain in place with scant amount of serosang output. Plan is to keep MIRANDA drain in place if patient is discharged this weekend for removal in clinic next week. Abdominal incisions are clean, dry, intact with Dermabond in place. No signs of infection at incision sites. Patient on hospitalist service. Patient does not feel that he is ready for discharge today. Plan to keep him at least until tomorrow. 02/07/2023 POD#2 robotic laparoscopic cholecystectomy for gangrenous cholecystitis, s/p ERCP this admission for cholangitis wbc 18,vitals stable. continue on IV abx while in house on reg diet miranda drain serosang. incisions c/d/i without evidence of infection. reports intermittent bouts of abdominal pain, will continue to monitor oob as tolerates....would likely benefit from some PT/OT continue pain control Keep miranda drain in place, can f/u in clinic next week for removal Admission and Anticipated Discharge Date Admission Date: January 29, 2023 Supervising Physician Co-Signing Physician Notes Dr. Taylor is very weak and requires additional days in the hospital Making very slow progress Subjective Gurwinder is resting in bed with at bedside. He reports that he is feeling well. He denies abdominal pain or nausea. He does report that he has moved his bowels. He is tolerating regular diet without issue. He is not sure if he would want to be discharged today. Physical Exam Physical Exam: awake/alert, no distress. appears weak Respiratory: normal respiratory effort Gastrointestinal (Abdomen): Inspection/Auscultation: + abdominal surgical incision (c/d/i no signs of infection) and + abdominal surgical drain present (serousang with scant amount of output.); abdomen not distended Percussion/Palpation: + abdomen tender (expected chary incisional and RUQ discomfort to palpation ) and abdomen soft Results & Data ([facility]) Vital Signs (Past 12 Hours) Vital Signs Temp Pulse Resp BP Pulse Ox O2 Del Method 02/07/23 21:35 Room Air 02/07/23 22:04 88 92 Room Air 02/07/23 20:07 37.2 C 90 18 115/63 91 Room Air PG Care Time/CCT Total # of Minutes Spent Total Time Spent with Patient: Total time spent is greater than 50% in coordination of care (as documented) at patient's floor/unit and/or counseling patient: Coding Level of Care Code None Diagnoses Acute cholecystitis K81.0
[2023-02-08] MEDS: PANTOprazole 40 MG in SYRINGE 0 ML IV SCH ×2 (09:02→20:46)
[2023-02-08] MEDS: INSULIN ASPART PER UNIT SC SCH ×4 (09:02→20:44)
[2023-02-08] MEDS: TAMSULOSIN HCL 0.4 MG CAP PO SCH ×2 (09:02→20:46)
[2023-02-08 09:31] LABS: Basophils # (auto) 0.13 K/uL (0-0.2); Basophils % (auto) 0.8 %; Eosinophils # (auto) 0.11 K/uL (0-0.50); Eosinophils % (auto) 0.7 %; Hematocrit (blood only) 42.3 % (42.0-52.0); Hemoglobin 14.5 g/dl (14.0-18.0); Immature Granulocytes # (auto) 0.81 K/uL (0.01-0.20); Lymphocytes # (auto) 1.29 K/uL (1.2-3.4); Lymphocytes % (auto) 7.9 %; Mean Corpuscular Hemoglobin 30.3 pg (25.0-34.0); Mean Corpuscular Hgb Conc 34.3 g/dL (32.0-36.0); Mean Corpuscular Volume 88.3 fL (80.0-100.0); Mean Platelet Volume 9.1 fL (9.4-12.4); Monocytes # (auto) 0.84 K/uL (0.11-0.59); Monocytes % (auto) 5.2 %; Neutrophils # (auto) 13.13 K/uL (1.40-6.50); Neutrophils % (auto) 80.4 %; Platelet Count 484 K/uL (130-400); RDW Coefficient of Variation 11.6 % (11.5-14.5); RDW Standard Deviation 37.2 fL (36.4-46.3); Red Blood Count 4.79 M/uL (4.70-6.10); White Blood Count 16.31 K/ul (4.8-10.8)
[2023-02-08 09:48] LABS: Albumin Globulin Ratio 0.9 (0.9-2); Albumin Level 3.3 gm/dl (3.4-5.0); Bilirubin,Total 1.1 mg/dl (0.2-1.0); C Reactive Protein 24.96 mg/dl (0-0.5); Calcium 8.9 mg/dl (8.5-10.1); Creatinine Clr Calc Pharmacy 70.7 ml/min; Est GFR (African American) 97.6 ml/min; Est GFR (Non-African American) 84.2 ml/min; Globulin 3.5 gm/dl (2.5-4.0); Potassium 3.8 mmol/L (3.5-5.1); Total Protein 6.8 gm/dl (6.0-8.3)
[2023-02-08] MEDS: LEVOTHYROXINE SODIUM 75 MCG TABLET PO SCH (14:20)
--- NOTE | 2023-02-08 21:42 | Hospitalist Progress Note ---
Date of Service February 08, 2023 Assessment & Plan (1) Acute cholecystitis: Plan: Clinical concerns for acute cholecystitis significant risk to the patient. Patient with sludge and gallbladder thickening on ultrasound. ERCP performed 01/30/[address] Elmer Holder. initial risk has mitigated but surgery will be performed this week Increased pain associated adding Ultram to his pain regimen on 02/01/2023 Dr. Anaya performed laparoscopic cholecystectomy likely on 02/05/2023 now postoperative evaluation for resumption of bowel function patient continues on antibiotics of Zosyn therapy, he is significantly painful [facility] called, has 4 of 4 blood cultures grow E coli that is sanchez sensitive from 01/29/23- gram negative bacteremia s/p cholecystectomy Acute duodenal ulcers without hemorrhage Chronic duodenal ulcer without hemorrhage Patient be on proton pump inhibitor for this. Patient is aferbrile. will continue to monitor for at least 72 hours post surgery. Patient also has a lower but still elevated WBC, a slightly increased bilirubin remains. CRP is also elevated, however, do not have a comparison. CRP is still elevated and slightly higher, Given is complicated course, patient will remain hospitalized. Discussed with surgeon. (2) DM2 (diabetes mellitus, type 2): Plan: Diabetes mellitus-chronic and unstable with n.p.o. status Continue to hold Jardiance Placed on Accu-Cheks with NovoLog coverage per [facility] [id number] glucoses reviewed over the last 24 hours and are acceptable (3) Prostate cancer: Plan: Chronic and stable no luts, no treatment Admission and Anticipated Discharge Date Admission Date: January 29, 2023 Subjective Patient reports having some pain and discomfort on his abdomen. The pain is much better today. He has no new complaints. Review of Systems Review of Systems: All systems reviewed & are unremarkable except as noted in HPI & below Physical Exam Physical Exam: Patient sitting upright in no acute distress cardiac's regular lungs are clear abdomen NABS soft he is tender in the right side Results & Data Results & Data ([facility]) Vital Signs (Past 12 Hours) Vital Signs Temp Pulse Resp BP Pulse Ox O2 Del Method 02/08/23 14:57 37.2 C 93 H 16 107/68 94 Room Air PG Care Time/CCT Total # of Minutes Spent Total Time Spent with Patient: Total time spent is greater than 50% in coordination of care (as documented) at patient's floor/unit and/or counseling patient: Coding Level of Care Code 38069 SUB INP/OBS CARE MIN Diagnoses Acute cholecystitis K81.0 DM2 (diabetes mellitus, type 2) E11.9 Prostate cancer C61
[2023-02-09] MEDS: LACTATED RINGER'S 1,000 ML IV SCH (07:52)
[2023-02-09] MEDS: PANTOprazole 40 MG in SYRINGE 0 ML IV SCH ×2 (08:14→21:04)
[2023-02-09] MEDS: TAMSULOSIN HCL 0.4 MG CAP PO SCH ×2 (08:14→21:04)
[2023-02-09] MEDS: INSULIN ASPART PER UNIT SC SCH ×4 (08:47→21:01)
--- NOTE | 2023-02-09 08:54 | Surgery Progress Note ---
Date of Service February 09, 2023 Assessment & Plan (1) Acute cholecystitis: Plan: 02/09/2023 POD #4 Robotic laparoscopic cholecystectomy for gangrenous cholecystitis, s/p ERCP this admission for cholangitis He is tolerating a regular diet, denies abdominal pain, and is moving his bowels. MIRANDA drain in place with scant amount of serosang output. Gurwinder continues to do well, but remains very weak. Do not feel that he is ready for discharge today. 02/08/2023 POD #3 Robotic laparoscopic cholecystectomy for gangrenous cholecystitis, s/p ERCP this admission for cholangitis He is tolerating a regular diet, denies abdominal pain, and is moving his bowels. MIRANDA drain in place with scant amount of serosang output. Plan is to keep MIRANDA drain in place if patient is discharged this weekend for removal in clinic next week. Abdominal incisions are clean, dry, intact with Dermabond in place. No signs of infection at incision sites. Patient on hospitalist service. Patient does not feel that he is ready for discharge today. Plan to keep him at least until tomorrow. 02/07/2023 POD#2 robotic laparoscopic cholecystectomy for gangrenous cholecystitis, s/p ERCP this admission for cholangitis wbc 18,vitals stable. continue on IV abx while in house on reg diet miranda drain serosang. incisions c/d/i without evidence of infection. reports intermittent bouts of abdominal pain, will continue to monitor oob as tolerates....would likely benefit from some PT/OT continue pain control Keep miranda drain in place, can f/u in clinic next week for removal Admission and Anticipated Discharge Date Admission Date: January 29, 2023 Supervising Physician Co-Signing Physician Notes Dr. Carcamopatient slowly improving and sitting at the edge of the bed eating his breakfast Appears to be improved from yesterday but will need additional days Subjective Gurwinder is sitting up at bedside eating breakfast. He is doing well and tolerating a regular diet. Review of Systems Constitutional: no fever and no chills Gastrointestinal: + abdominal pain (expected, at incision sites. ); no nausea and no vomiting Physical Exam Physical Exam: awake/alert, no distress. appears weak Respiratory: normal respiratory effort Gastrointestinal (Abdomen): Inspection/Auscultation: + abdominal surgical incision (c/d/i no signs of infection) and + abdominal surgical drain present (serousang with scant amount of output.); abdomen not distended Percussion/Palpation: + abdomen tender (expected chary incisional and RUQ discomfort to palpation ) and abdomen soft Psychiatric: A+Ox3, euthymic affect Results & Data ([facility]) Vital Signs (Past 12 Hours) Vital Signs Temp Pulse Resp BP Pulse Ox O2 Del Method 02/09/23 07:53 36.9 C 80 16 119/72 94 Room Air 02/08/23 20:40 Room Air 02/08/23 22:51 37.0 C 87 17 126/71 95 Room Air PG Care Time/CCT Total # of Minutes Spent Total Time Spent with Patient: Total time spent is greater than 50% in coordination of care (as documented) at patient's floor/unit and/or counseling patient: Coding Level of Care Code 59310 Post Operative Follow-Up Diagnoses Acute cholecystitis K81.0
[2023-02-09 11:22] LABS: Basophils # (auto) 0.07 K/uL (0-0.2); Basophils % (auto) 0.6 %; Eosinophils # (auto) 0.12 K/uL (0-0.50); Hematocrit (blood only) 38.3 % (42.0-52.0); Hemoglobin 13.1 g/dl (14.0-18.0); Immature Granulocytes % (auto) 4.1 %; Lymphocytes # (auto) 1.16 K/uL (1.2-3.4); Lymphocytes % (auto) 9.5 %; Mean Corpuscular Hemoglobin 30.5 pg (25.0-34.0); Mean Corpuscular Hgb Conc 34.2 g/dL (32.0-36.0); Mean Corpuscular Volume 89.1 fL (80.0-100.0); Mean Platelet Volume 8.8 fL (9.4-12.4); Monocytes # (auto) 0.77 K/uL (0.11-0.59); Monocytes % (auto) 6.3 %; Neutrophils # (auto) 9.62 K/uL (1.40-6.50); Neutrophils % (auto) 78.5 %; Platelet Count 532 K/uL (130-400); RDW Coefficient of Variation 11.7 % (11.5-14.5); RDW Standard Deviation 37.5 fL (36.4-46.3); White Blood Count 12.24 K/ul (4.8-10.8)
[2023-02-09 11:49] LABS: Albumin Globulin Ratio 0.9 (0.9-2); Albumin Level 3.1 gm/dl (3.4-5.0); BUN Creatinine Ratio 17.3 (10-20); Bilirubin,Total 0.6 mg/dl (0.2-1.0); C Reactive Protein 11.48 mg/dl (0-0.5); Calcium 8.4 mg/dl (8.5-10.1); Creatinine Clr Calc Pharmacy 75.1 ml/min; Est GFR (African American) 100.1 ml/min; Est GFR (Non-African American) 86.3 ml/min; Globulin 3.3 gm/dl (2.5-4.0); Potassium 3.3 mmol/L (3.5-5.1); Total Protein 6.4 gm/dl (6.0-8.3)
[2023-02-09] MEDS: traMADol HCL 50 MG TABLET PO PRN (13:08)
--- NOTE | 2023-02-09 14:51 | Hospitalist Progress Note ---
Date of Service February 09, 2023 Assessment & Plan (1) Acute cholecystitis: Plan: Clinical concerns for acute cholecystitis significant risk to the patient. Patient with sludge and gallbladder thickening on ultrasound. ERCP performed 01/30/[address] Elmer Holder. initial risk has mitigated but surgery will be performed this week Increased pain associated adding Ultram to his pain regimen on 02/01/2023 Dr. Anaya performed laparoscopic cholecystectomy likely on 02/05/2023 now postoperative evaluation for resumption of bowel function patient continues on antibiotics of Zosyn therapy, he is significantly painful [facility] called, has 4 of 4 blood cultures grow E coli that is sanchez sensitive from 01/29/23- gram negative bacteremia s/p cholecystectomy Acute duodenal ulcers without hemorrhage Chronic duodenal ulcer without hemorrhage Patient be on proton pump inhibitor for this. Patient is aferbrile. will continue to monitor for at least 72 hours post surgery. Patient also has a lower WBC, improved bilirubin. CRP has also improved. Patient needed my asistance to get him to sit up. Patient will likely benefit from rehab. will have PT re-eval tomorrow. At this point, discharge home does not appear to be safe (2) DM2 (diabetes mellitus, type 2): Plan: Diabetes mellitus-chronic and unstable with n.p.o. status Continue to hold Jardiance Placed on Accu-Cheks with NovoLog coverage per [facility] [id number] glucoses reviewed over the last 24 hours and are acceptable (3) Prostate cancer: Plan: Chronic and stable no luts, no treatment Admission and Anticipated Discharge Date Admission Date: January 29, 2023 Subjective Patient continues to have right upper quadrant abdominal pain. Patient tolerated his meal. Patient reports he is having rattling in his chest. Review of Systems Review of Systems: All systems reviewed & are unremarkable except as noted in HPI & below Physical Exam Physical Exam: Patient sitting upright in no acute distress cardiac's regular lungs are clear abdomen NABS soft he is tender in the right side Results & Data Results & Data ([facility]) Vital Signs (Past 12 Hours) Vital Signs Temp Pulse Resp BP Pulse Ox O2 Del Method 02/09/23 07:53 36.9 C 80 16 119/72 94 Room Air PG Care Time/CCT Total # of Minutes Spent Total Time Spent with Patient: Total time spent is greater than 50% in coordination of care (as documented) at patient's floor/unit and/or counseling patient: Coding Level of Care Code 92046 SUB INP/OBS CARE Diagnoses Acute cholecystitis K81.0 DM2 (diabetes mellitus, type 2) E11.9 Prostate cancer C61
[2023-02-09] MEDS: LEVOTHYROXINE SODIUM 75 MCG TABLET PO SCH (15:20)
[2023-02-10 07:36] VITALS: BP 127/77; TEMP 98.6; O2SAT 93
[2023-02-10 07:46] VITALS: PULSE 80
[2023-02-10] MEDS: PANTOprazole 40 MG in SYRINGE 0 ML IV SCH (08:49)
[2023-02-10] MEDS: TAMSULOSIN HCL 0.4 MG CAP PO SCH (08:49)
[2023-02-10] MEDS: INSULIN ASPART PER UNIT SC SCH ×2 (08:50→13:03)
[2023-02-10] MEDS ORDERED: DOCUSATE SODIUM SYRUP 100 MG/10 ML UDC PO STA (10:12)
--- NOTE | 2023-02-10 12:54 | Surgery Progress Note ---
Date of Service February 10, 2023 Assessment & Plan (1) Hx laparoscopic cholecystectomy: Plan: s/p ercp and robotic mulu. doing well d/c drain okay to d/c to home f/u in 2 weeks return precautions given wound care instructions, activity restrictions reviewed Admission and Anticipated Discharge Date Admission Date: January 29, 2023 Subjective s/p ERCP for cholangitis, s/p robotic mulu for gangrenous cholecystitis. Doing better, tolerating diet, feeling stronger. Physical Exam Constitutional: WD/WN, vitals as above Gastrointestinal (Abdomen): normal bowel sounds, soft, nontender, no hepatosplenomegaly Inspection/Auscultation: + abdominal surgical incision (no infection) and + abdominal surgical drain present (ss drainage) Results & Data ([facility]) Vital Signs (Past 12 Hours) Vital Signs Temp Pulse Pulse Resp BP Pulse Ox O2 Del Method 02/10/23 07:45 80 02/10/23 07:32 37.0 C 93 H 18 127/77 93 Room Air Diagnostic Findings FINAL DIAGNOSIS Gallbladder, laparoscopic cholecystectomy: - Severe necrotizing acute cholecystitis. No calculi identified. at 1417. Clinical History Acute gangrenous cholecystitis. Procedure performed: Robotic laparoscopic cholecystectomy. Gross Description GALLBLADDER AND CONTENTS The specimen is received in a container labeled gallbladder and contents with the patient name. The specimen consists of a fragmented gallbladder with the fragments ranging from 2 x 1.2 x 0.4 cm to a maximum of 13.5 x 5 x 0.8 cm. The fragments range from pale alvarez to dull spicer to dark green with many having a mottled appearance. The fragments range from friable to rubbery. What appears to represent serosal surface shows scattered adhesions. What appears to represent mucosal surface shows a diffusely mottled and apparently ulcerated appearance. A cystic duct is not identified with certainty. The wall ranges up to 0.8 cm in thickness with the majority firm to rubbery in consistency. No calculi are identified. Reimbursement Spec sections are submitted in a single cassette as A1. SH PG Care Time/CCT Total # of Minutes Spent Total Time Spent with Patient: Total time spent is greater than 50% in coordination of care (as documented) at patient's floor/unit and/or counseling patient: Coding Level of Care Code None Diagnoses Hx laparoscopic cholecystectomy Z90.49
[2023-02-10 13:00] LABS: Calcium 8.3 mg/dl (8.5-10.1); Magnesium 1.9 mg/dl (1.7-2.4); Potassium 3.5 mmol/L (3.5-5.1)
[2023-02-10 13:06] LABS: BUN Creatinine Ratio 20.8 (10-20); Est GFR (African American) 102.2 ml/min; Est GFR (Non-African American) 88.1 ml/min; Phosphorus 1.9 mg/dl (2.5-4.9)
[2023-02-10] MEDS: LEVOTHYROXINE SODIUM 75 MCG TABLET PO SCH (14:02)
[2023-02-10] MEDS ORDERED: DOCUSATE SODIUM 100 MG CAP PO SCH (21:00)
== END 2023-02-10 14:51 | disposition home or self-care (01) | DRG 418 ==
LOC: SUATTDRO 20:21 → 4W 20:21 → 3W 02-01 14:04
DX: E11.9 Type 2 diabetes mellitus without complications; K26.3 Acute duodenal ulcer without hemorrhage or perforation; G45.4 Transient global amnesia; R78.81 Bacteremia; Z79.82 Long term (current) use of aspirin; Z85.46 Personal history of malignant neoplasm of prostate; Z79.899 Other long term (current) drug therapy; Z87.891 Personal history of nicotine dependence; Z88.8 Allergy status to other drugs, medicaments and biological substances; K81.0 Acute cholecystitis; K83.09 Other cholangitis; Z79.890 Hormone replacement therapy; K26.7 Chronic duodenal ulcer without hemorrhage or perforation; K66.0 Peritoneal adhesions (postprocedural) (postinfection)